=== PATIENT | male | born 1955 | race Caucasian/White ===

== ENCOUNTER → 2022-05-01 14:51 | Outpatient (BNVA) | payer OTHER, SELFPAY | PROVIDERS: PCP Family Medicine; Visit Provider Internal Medicine Endocrinology, Diabetes & Metabolism | DX: E11.65 Type 2 diabetes mellitus with hyperglycemia (principal) | CPT/HCPCS: 82947 ==

== ENCOUNTER → 2022-08-04 13:00 | Outpatient (BNVA) | payer MEDICARE, OTHER, SELFPAY | PROVIDERS: PCP Family Medicine; Visit Provider Internal Medicine Endocrinology, Diabetes & Metabolism | DX: E11.65 Type 2 diabetes mellitus with hyperglycemia (principal); Z79.4 Long term (current) use of insulin | CPT/HCPCS: 82947; 83036; 99212 ==

== ENCOUNTER → 2022-08-05 12:39 | Outpatient (BNVA) | payer MEDICARE, OTHER, SELFPAY | PROVIDERS: PCP Family Medicine; Visit Provider Physician Assistant | DX: Z13.89 Encounter for screening for other disorder (principal) ==

== ENCOUNTER → 2022-08-28 09:47 | Outpatient (BNVA) | payer MEDICARE, OTHER, SELFPAY | PROVIDERS: PCP Family Medicine; Referring Provider Family Medicine; Visit Provider Physician Assistant Surgical | DX: E66.9 Obesity, unspecified (principal); Z68.38 Body mass index [BMI] 38.0-38.9, adult | CPT/HCPCS: 99202 ==

== ENCOUNTER → 2022-11-10 16:04 | Outpatient (BNVA) | payer MEDICARE, OTHER, SELFPAY | PROVIDERS: PCP Family Medicine; Visit Provider Internal Medicine Endocrinology, Diabetes & Metabolism | DX: E11.65 Type 2 diabetes mellitus with hyperglycemia (principal) | CPT/HCPCS: 82947; 99212 ==

== ENCOUNTER → 2022-12-02 10:49 | Outpatient (BNVA) | payer MEDICARE, OTHER, SELFPAY | PROVIDERS: PCP Family Medicine; Visit Provider Registered Nurse Diabetes Educator | DX: E11.9 Type 2 diabetes mellitus without complications (principal) | CPT/HCPCS: 99211 ==

== ENCOUNTER 2023-02-17 11:32 | Outpatient (AMB) | payer MEDICARE, OTHER, SELFPAY ==
--- NOTE | 2023-02-17 11:34 | A.OFFVIS_ITS ---
Intake Vital Signs 02/17/23 11:35 Height 6 ft 3 in Weight 280 lb 10.375 oz BMI 35.1 BP 140/62 H Blood Pressure Location Rt brachial Position Sitting Pulse 80 Pulse Source Pulse Oximeter Intake Visit Reasons: f/u Type 2 DM Intake Note: Patient present today to follow up on Type 2 Diabetes Mellitus. Patient receives DME supplies through: Last Diabetic Eye exam: 11/20/22 Last Podiatry Visit: Over a year Random Glucose:213 mg/dl HgA1C: 9.3% Template Fitter Required: No Accompanied by: Self / Same As Patient Allergies metformin Adverse Reaction (Severe, Verified 02/17/23 11:39) Diarrhea atorvastatin Adverse Reaction (Unknown, Verified 02/17/23 11:39) uknown canagliflozin Adverse Reaction (Unknown, Verified 02/17/23 11:39) Unknown dapagliflozin Adverse Reaction (Unknown, Verified 02/17/23 11:39) unknown meperidine [From Demerol] Adverse Reaction (Unknown, Verified 02/17/23 11:39) Unknown pioglitazone Adverse Reaction (Unknown, Verified 02/17/23 11:39) Unknown Seasonal Allergies Adverse Reaction (Unknown, Verified 02/17/23 11:39) Unknown spironolactone Adverse Reaction (Unknown, Verified 02/17/23 11:39) Unknown topiramate Adverse Reaction (Unknown, Verified 02/17/23 11:39) Unknown Medication List - Last Reconciled 02/17/23 by Anselmo Waters MD albuterol sulfate 90 mcg/actuation 0 mcg inhalation blood sugar diagnostic (OneTouch Ultra Test strips) As directed 4 times a day blood-glucose meter (Advanced Bioimaging SystemsTouch Ultra2 Meter) As directed dulaglutide (Trulicity) 4.5 mg (0.5 mL) subcut QWEEK flash glucose scanning reader (FreeStyle Alyssa 2 [place]) As directed every 14 days flash glucose sensor (FreeStyle Alyssa 2 Sensor kit) As directed furosemide 40 mg PO DAILY insulin regular hum U-500 conc (Humulin R U-500 (Conc) Insulin Kwikpen) 200 units before breakfast, 200 units before dinner subcutaneously every evening; lancets (CultureAlleyuch Delica Lancets) As directed 4 times a day losartan 50 mg PO DAILY pregabalin 75 mg PO BID rosuvastatin 40 mg PO DAILY HPI HPI Comments History of Present Illness Details 67 YO M who is seen in consultation for T2DM at the request of PCP. Initially diagnosed with T2DM in age 32 . Saw endo in [place] Was initially started on treatment with metformin - Gi discomfort . Current regimen Trulicity 4.5 mg Qwkly Humulin U 500 220 units with breakfast and 180 units with dinner Per the CGM Alyssa / CGMS is active 92 % of time . data the patient's predicted A1C is 9.4% Avg glucose is 255 . Variability of 34.1 The patient's blood sugars were in target 22% of the time, above target 77 % of the time, and below target 1 % of the time. Pattern shows declining blood sugars overnight but increases from 03:00 to 10:00 Reports low sugars very infrequently .Had hypoglycemia several mos ago when followed diet Treats lows with juice . Not Checks sugar after to ensure it is rising. . Family history of T2DM in father had Type 2 DM . Has eyes checked yearly, last eye exam 3-4 wks ago , denies retinopathy. Has neuropathy, last foot exam 3-4 mos ago , sees podiatry. Has nephropathy, on CHARLI/ARB. . Has HLD, on statin. Denies CAD.Has PVD Saw religious educator. Is going for knee surgery in the next few weeks [facility] Medical History (Updated 08/28/22 @ 13:00 by KATLIN Crooks) Uncontrolled type 2 diabetes circulatory disorder erectile dysfunction Uncontrolled type 2 diabetes mellitus Uncontrolled type 2 diabetes mellitus Surgical History History of facial surgery Hx of cholecystectomy Hx of foot surgery Hx of knee surgery Hx of shoulder surgery Family History Father Diabetes mellitus, type II Mother Dementia Social History Household Members: Spouse Household Members Other:: Alcohol intake: current Alcohol intake frequency: holidays/special occasions on ly Patient Tobacco Use Status: Former Tobacco user Quit Date: 2020 Substance Use Type: Marijuana Physical Exam Vital Signs: Last Vital Signs Pulse 80 02/17/23 11:35 BP 140/62 H 02/17/23 11:35 BMI result Body Mass Index 35.1 Absence of Cushingoid features. Absence of acromegalic features. Neck exam reveals nl size thyroid about 15 gms. No thyroid nodules palpable. No carotid bruits present. Lungs CTA. Heart S1 S2, Reg R/R. No M/R/ G. Skin exam reveals absence of vitiligo or acanthosis nigricans. Abdominal exam reveals Soft NT/ND with NA BS. No organomegaly present. Neck Other: . Extrem Other: Visual exam of foot performed. No ulcerations or open lesions. No onchomycosis, no callouses.Pulses 2 + distally Sensation intact to monofilament exam. Vibratory sensation sensed is decreased with 128 Hz tuning fork Results Reviewed Results Reviewed: 02/17/23 11:46 Glucose, Whole Blood Routine Laboratory Last Values Glucose (Clinic) 213 mg/dL (60-115) H 02/17/23 11:46 Assessment & Plan Assessment & Plan (1) Uncontrolled type 2 diabetes mellitus: Qualifiers: Glycemic state: with hyperglycemia Qualified Code(s): E11.65 - Type 2 diabetes mellitus with hyperglycemia Plan: This is a 67-year-old white male with history of type 2 diabetes being treated with Trulicity, U-500 insulin with poor glycemic control and known microvascular and macrovascular complications namely neuropathy, microalbuminuria and peripheral vascular disease. . The plan is to consider switching the U -500 to an insulin pump large enough reservoir or use U-100 or 200 . Will have patient follow-up with religious educator . Will switch patient to alternative G LP 1/G IP agonist Mounjaro and titrate based on tolerability. For now, patient was told to increase the U-500 insulin in the a.m. to 250 units. Once he starts the Mounjaro after the surgery, he may need to decrease the U-500 insulin. New communicate any hypoglycemia after starting the Mounjaro Coding Level of Care Code Est Pt Level 4 (09807) Diagnoses Uncontrolled type 2 diabetes mellitus E11.65 Glycemic state: with hyperglycemia
[2023-02-17 11:35] VITALS: BP 140/62; PULSE 80; BMI 35.1
[2023-02-17 11:51] LABS: Glucose, Whole Blood 213 mg/dL (60-115)
== END 2023-02-17 12:24 | disposition home or self-care (01) ==
PROVIDERS: PCP Family Medicine; Referring Provider Family Medicine; Visit Provider Internal Medicine Endocrinology, Diabetes & Metabolism
DX: E11.65 Type 2 diabetes mellitus with hyperglycemia (principal); Z79.4 Long term (current) use of insulin
CPT/HCPCS: 99214

== ENCOUNTER → 2023-02-17 11:32 | Outpatient (BNVA) | payer MEDICARE, OTHER, SELFPAY | PROVIDERS: Visit Provider Internal Medicine Endocrinology, Diabetes & Metabolism | DX: E11.65 Type 2 diabetes mellitus with hyperglycemia (principal); Z79.4 Long term (current) use of insulin | CPT/HCPCS: 82947; 83036; 99212 ==

== ENCOUNTER 2023-04-21 09:19 | Outpatient (AMB) | payer MEDICARE, OTHER, SELFPAY ==
--- NOTE | 2023-04-21 10:00 | A.OFFVIS_ITS ---
Intake Intake Visit Reasons: DM Customer Manager Required: No Accompanied by: Self / Same As Patient Allergies metformin Adverse Reaction (Severe, Verified 02/17/23 11:39) Diarrhea atorvastatin Adverse Reaction (Unknown, Verified 02/17/23 11:39) uknown canagliflozin Adverse Reaction (Unknown, Verified 02/17/23 11:39) Unknown dapagliflozin Adverse Reaction (Unknown, Verified 02/17/23 11:39) unknown meperidine [From Demerol] Adverse Reaction (Unknown, Verified 02/17/23 11:39) Unknown pioglitazone Adverse Reaction (Unknown, Verified 02/17/23 11:39) Unknown Seasonal Allergies Adverse Reaction (Unknown, Verified 02/17/23 11:39) Unknown spironolactone Adverse Reaction (Unknown, Verified 02/17/23 11:39) Unknown topiramate Adverse Reaction (Unknown, Verified 02/17/23 11:39) Unknown HPI Comprehensive Diabetes Asmnt Most Recent Diabetes Results: No Data to Display [facility] Medical History (Updated 02/17/23 @ 12:59 by Anselmo Waters MD) Uncontrolled type 2 diabetes mellitus with hyperglycemia, with long-term current use of insulin Uncontrolled type 2 diabetes mellitus Uncontrolled type 2 diabetes mellitus Uncontrolled type 2 diabetes circulatory disorder erectile dysfunction Surgical History History of cosmetic plastic surgery History of facial surgery Hx of knee surgery Hx of shoulder surgery Hx of cholecystectomy Hx of foot surgery Family History Father Diabetes mellitus, type II Mother Dementia Social History Household Members: Spouse Household Members Other:: Alcohol intake: current Alcohol intake frequency: holidays/special occasions only Patient Tobacco Use Status: Former Tobacco user Quit Date: 2020 Substance Use Type: Marijuana Assessment & Plan Assessment & Plan (1) Uncontrolled type 2 diabetes mellitus with hyperglycemia, with long-term current use of insulin: Code(s): E11.65 - Type 2 diabetes mellitus with hyperglycemia; Z79.4 - group home (current) use of insulin Plan: Personal Continuous Glucose Monitor: Patients CGM information reviewed Reviewed patient's sensor data: Hypoglycemia: ? Hyperglycemia:? Time in Range:? Average glucose for the last 2 weeks? mg/dL Reviewed how to interpret trend arrows Reminded patient that to check finger sticks if symptoms do not match sensor reading. Discussed lag time between finger stick and sensor data.? Patient able to insert sensor independently at home without issue.? Plan Personal Continuous Glucose Monitor: Patients CGM information reviewed Reviewed patient's sensor data: Hypoglycemia: ? 0% Hyperglycemia:? 72% Time in Range:? 28% Average glucose for the last 2 weeks?229 mg/dL Patient reports he has been losing weight, as a result he feels he is an increase in hypoglycemic events especially before dinner. Patient is currently taking U 500 b.i.d. 120-160 units in the a.m. 50-120 units in the p.m. Reviewed with patient the importance of consistent insulin doses. Recommended to patient to discuss at next visit with Dr. Waters having a sliding scale developed. This may help get better picture of what actual glucose patterns are. The patient also at visit to discuss insulin pump use. With high doses of insulin, Omnipod and iLet would not be appropriate is a do not have the capacity to cover patient's daily insulin intake Patient is not interested in T slim with tubing. Patient reports as he continues to improve after last knee surgery he is hoping that his mobility will be come easier. And he can be more physically active in the future. Reviewed how to interpret trend arrows Reminded patient that to check finger sticks if symptoms do not match sensor reading. Discussed lag time between finger stick and sensor data.? Patient able to insert sensor independently at home without issue.? Patient declined to set up appointment for next visit * Coding Level of Care Code Est Pt Level 1 (15481) Diagnoses Uncontrolled type 2 diabetes mellitus with hyperglycemia, with long-term current use of insulin E11.65; Z79.4
== END 2023-04-21 10:15 | disposition home or self-care (01) ==
PROVIDERS: PCP Family Medicine; Visit Provider Registered Nurse Diabetes Educator
DX: E11.65 Type 2 diabetes mellitus with hyperglycemia (principal); Z79.4 Long term (current) use of insulin

== ENCOUNTER → 2023-04-21 09:19 | Outpatient (BNVA) | payer MEDICARE, OTHER, SELFPAY | PROVIDERS: PCP Family Medicine; Visit Provider Registered Nurse Diabetes Educator | DX: E11.65 Type 2 diabetes mellitus with hyperglycemia (principal); Z79.4 Long term (current) use of insulin | CPT/HCPCS: 99211 ==

== ENCOUNTER 2023-05-19 08:48 | Outpatient (REF) | payer OTHER, MEDICARE, SELFPAY ==
[2023-05-19 10:03] LABS: Creatinine Urine 146.02 mg/dL; Microalbum/Creatinine Ratio Ur 99.9 ug/mg cr (<30)
[2023-05-19 10:05] LABS: Anion Gap 13 (12-20); Blood Urea Nitrogen 16 mg/dL (9-16); Calcium 9.3 mg/dL (8.4-10.2); Carbon Dioxide 26 mmol/L (22-29); Chloride 105 mmol/L (96-108); Cholesterol 88 mg/dL (<200); Estimated Glomerular Filt Rate > 60; Glucose Random 335 mg/dL (60-115); HDL Cholesterol 33 mg/dL (>40); LDL Cholesterol Calculated 25 mg/dL (<100); Potassium 4.7 mmol/L (3.3-5.1); Sodium 139 mmol/L (135-145); Triglycerides 152 mg/dL (<150)
== END 2023-05-19 08:49 | disposition home or self-care (01) ==
LOC: HO.LAB 08:48
PROVIDERS: PCP Family Medicine; Visit Provider Internal Medicine Endocrinology, Diabetes & Metabolism
DX: E11.65 Type 2 diabetes mellitus with hyperglycemia (principal); Z79.4 Long term (current) use of insulin
CPT/HCPCS: 36415; 80048; 80061; 82043; 82570

== ENCOUNTER 2023-05-24 08:18 | Outpatient (AMB) | payer MEDICARE, OTHER, SELFPAY ==
--- NOTE | 2023-05-24 08:26 | MHC.OFFVIS ---
Intake Vital Signs 05/24/23 08:32 Height 6 ft 3 in Weight 277 lb 8.992 oz BMI 34.7 BP 114/62 Blood Pressure Location Lt brachial Position Sitting Pulse 90 Pulse Source Pulse Oximeter Intake Visit Reasons: DM Intake Note: Patient present today to follow up on Type 2 Diabetes Mellitus. Patient receives DME supplies through: [facility] Medical Last Diabetic Eye exam: 11/20/2022 Last Podiatry Visit: Does not see a Hair Baler Random Glucose: 281 mg/dl HgA1C: 9.0% Machine Operator General Required: No Accompanied by: Self / Same As Patient Allergies metformin Adverse Reaction (Severe, Verified 05/24/23 08:45) Diarrhea atorvastatin Adverse Reaction (Unknown, Verified 05/24/23 08:45) uknown canagliflozin Adverse Reaction (Unknown, Verified 05/24/23 08:45) Unknown dapagliflozin Adverse Reaction (Unknown, Verified 05/24/23 08:45) unknown meperidine [From Demerol] Adverse Reaction (Unknown, Verified 05/24/23 08:45) Unknown pioglitazone Adverse Reaction (Unknown, Verified 05/24/23 08:45) Unknown Seasonal Allergies Adverse Reaction (Unknown, Verified 05/24/23 08:45) Unknown spironolactone Adverse Reaction (Unknown, Verified 05/24/23 08:45) Unknown topiramate Adverse Reaction (Unknown, Verified 05/24/23 08:45) Unknown Medication List - Last Reconciled 05/24/23 by Anselmo Waters MD albuterol sulfate 90 mcg/actuation 0 mcg inhalation aspirin 81 mg PO DAILY blood sugar diagnostic (EquaMetricsTouch Ultra Test strips) As directed 4 times a day blood-glucose meter (Tracked.comuch Ultra2 Meter) As directed flash glucose scanning reader (aihuishouStyle Alyssa 2 [place]) As directed every 14 days flash glucose sensor (FreeStyle Alyssa 2 Sensor kit) As directed furosemide 40 mg PO DAILY insulin regular hum U-500 conc (Humulin R U-500 (Conc) Insulin Kwikpen) 200 units before breakfast, 200 units before dinner subcutaneously every evening; lancets (Mogotest Delica Lancets) As directed 4 times a day losartan 50 mg PO DAILY pregabalin 75 mg PO BID rosuvastatin 40 mg PO DAILY tirzepatide (Mounjaro) 2.5 mg (0.5 mL) subcut QWEEK 4 weeks HPI HPI Comments History of Present Illness Details 67 YO M who is seen in consultation for T2DM at the request of PCP. Initially diagnosed with T2DM in age 32 . Saw endo in [place] Was initially started on treatment with metformin - Gi discomfort . Current regimen Trulicity 4.5 mg Qwkly Humulin U 500 250 units with breakfast and 180 units with dinner Per the CGM Alyssa / CGMS is active 94 % of time . data the patient's predicted A1C is 9.7% Avg glucose is 267 . Variability of 26.8 The patient's blood sugars were in target 11% of the time, above target 88 % of the time, and below target 1 % of the time. Pattern shows declining blood sugars overnight but increases from 03:00 to 10:00 Has decreased in insulin requirement but then increased Reports low sugars very infrequently .Had hypoglycemia several mos ago when followed diet Treats lows with juice . Not Checks sugar after to ensure it is rising. . Family history of T2DM in father had Type 2 DM . Has eyes checked yearly, last eye exam , denies retinopathy. Has neuropathy, last foot exam 3-4 mos ago , sees podiatry. Has nephropathy, on CHARLI/ARB. . Has HLD, on statin. Denies CAD.Has PVD Saw simulation educator. Is going for knee surgery in the next few weeks [facility] Medical History (Updated 02/17/23 @ 12:59 by Anselmo Waters MD) Uncontrolled type 2 diabetes mellitus with hyperglycemia, with long-term current use of insulin Uncontrolled type 2 diabetes mellitus Uncontrolled type 2 diabetes mellitus Uncontrolled type 2 diabetes circulatory disorder erectile dysfunction Surgical History History of cosmetic plastic surgery History of facial surgery Hx of knee surgery Hx of shoulder surgery Hx of cholecystectomy Hx of foot surgery Family History Father Diabetes mellitus, type II Mother Dementia Household Members: Spouse Household Members Other:: Alcohol intake: current Alcohol intake frequency: holidays/special occasions only Patient Tobacco Use Status: Former Tobacco user Quit Date: 2020 Substance Use Type: Marijuana Physical Exam Vital Signs: Last Vital Signs Pulse 90 05/24/23 08:32 BP 114/62 05/24/23 08:32 BMI result Body Mass Index 34.7 Absence of Cushingoid features. Absence of acromegalic features. Neck exam reveals nl size thyroid about 15 gms. No thyroid nodules palpable. No carotid bruits present. Lungs CTA. Heart S1 S2, Reg R/R. No M/R/ G. Skin exam reveals absence of vitiligo or acanthosis nigricans. Abdominal exam reveals Soft NT/ND with NA BS. No organomegaly present. Neck Other: . Extrem Other: Visual exam of foot performed. No ulcerations or open lesions. No onchomycosis, no callouses.Pulses 2 + distally Sensation intact to monofilament exam. Vibratory sensation sensed is decreased with 128 Hz tuning fork Results Reviewed Results Reviewed: Laboratory Last Values Glucose (Clinic) 281 mg/dL (60-115) H 05/24/23 08:42 Assessment & Plan Assessment & Plan (1) Uncontrolled type 2 diabetes mellitus: Qualifiers: Glycemic state: with hyperglycemia Qualified Code(s): E11.65 - Type 2 diabetes mellitus with hyperglycemia Plan: This is a 67-year-old white male with history of type 2 diabetes being treated with Trulicity, U-500 insulin with poor glycemic control and known microvascular and macrovascular complications namely neuropathy, microalbuminuria and peripheral vascular disease. . The plan is to initiate Mounjaro 2.5 mg which patient states was helping reduce the insulin requirements. However, patient is having difficulty making the co-pay for Mounjaro. I was trying to get him assistance from physical education department chair but this may be difficult. We also want to revisit putting the U-500 insulin into a pump like tandem. I do feel more comfortable send the patient to a tertiary care center such as [facility] for pump initiation or other suggestions and [facility] Mounjaro 2.5 mg samples given to patient lot #[id number] C expiration 11/01/2024 (2) Uncontrolled type 2 diabetes mellitus with hyperglycemia, with long-term current use of insulin: Code(s): E11.65 - Type 2 diabetes mellitus with hyperglycemia; Z79.4 - truck terminal manager (current) use of insulin Orders: Orders Cortisol, Free 24Hr Urine Today E11.65 - Type 2 diabetes mellitus with hyperglycemia, Z79.4 - [facility] (current) use of insulin AMB Hemoglobin A1c Today E11.65 - Type 2 diabetes mellitus with hyperglycemia, Z79.4 - [facility] (current) use of insulin Creatinine, 24 Hr Group Today E11.65 - Type 2 diabetes mellitus with hyperglycemia, Z79.4 - truck terminal manager (current) use of insulin Referrals Endocrinology Referral E11.65 - Type 2 diabetes mellitus with hyperglycemia, Z79.4 - [facility] (current) use of insulin Coding Level of Care Code Est Pt Level 4 (10345) Diagnoses Uncontrolled type 2 diabetes mellitus with hyperglycemia E11.65 Glycemic state: with hyperglycemia Uncontrolled type 2 diabetes mellitus with hyperglycemia, with long-term current use of insulin E11.65; Z79.4
[2023-05-24 08:32] VITALS: BP 114/62; PULSE 90; BMI 34.7
[2023-05-24 08:47] LABS: Glucose, Whole Blood 281 mg/dL (60-115)
== END 2023-05-24 09:46 | disposition home or self-care (01) ==
PROVIDERS: PCP Family Medicine; Visit Provider Internal Medicine Endocrinology, Diabetes & Metabolism
DX: E11.65 Type 2 diabetes mellitus with hyperglycemia (principal); Z79.4 Long term (current) use of insulin
CPT/HCPCS: 99214

== ENCOUNTER → 2023-05-24 08:18 | Outpatient (BNVA) | payer MEDICARE, OTHER, SELFPAY | PROVIDERS: PCP Family Medicine; Visit Provider Internal Medicine Endocrinology, Diabetes & Metabolism | DX: E11.65 Type 2 diabetes mellitus with hyperglycemia (principal); E11.21 Type 2 diabetes mellitus with diabetic nephropathy; I73.9 Peripheral vascular disease, unspecified; N52.01 Erectile dysfunction due to arterial insufficiency; E78.5 Hyperlipidemia, unspecified; Z79.4 Long term (current) use of insulin; Z79.899 Other long term (current) drug therapy | CPT/HCPCS: 82947; 99212 ==

== ENCOUNTER 2023-05-25 14:42 | Outpatient (REF) | payer MEDICARE, OTHER, SELFPAY ==
[2023-05-25 15:57] LABS: Creatinine, mg/dL 97.15
[2023-05-25 17:20] LABS: Creatinine, 24Hr Urine 1.7 G/Day (1.0-2.0); Total Volume 24 Hour Urine 1750 mL
[2023-06-01 14:49] LABS: Cortisol Free, 24 Hr Urine 45.7 mcg/24 h (4.0-50.0); Creatinine, 24 Hr Urine 1.67 g/24 h (0.50-2.15); Total Volume, 24 Hr Urine 1750 mL
== END 2023-05-25 14:43 | disposition home or self-care (01) ==
LOC: HO.LNP 14:42
PROVIDERS: Visit Provider Internal Medicine Endocrinology, Diabetes & Metabolism
DX: E11.65 Type 2 diabetes mellitus with hyperglycemia (principal); Z79.4 Long term (current) use of insulin
CPT/HCPCS: 82530; 82570

== ENCOUNTER 2024-06-19 11:25 | Outpatient (AMB) | payer MEDICARE, OTHER, SELFPAY ==
--- NOTE | 2024-06-19 11:27 | MHC.OFFVIS ---
Vital Signs 06/19/24 11:32 Height 6 ft 3 in Weight 286 lb 9.615 oz BMI 35.8 BP 104/64 Blood Pressure Location Rt brachial Position Sitting Pulse 84 Pulse Source Pulse Oximeter Intake Visit Reasons: DM w/ Dr. Waters per Danielle Intake Note: Patient present today to follow up on Type 2 Diabetes Mellitus. Last Diabetic Eye exam: within the year, has annual appointments Last Podiatry Visit: Does not see a Costumer Assistant Random Glucose: 109 mg/dl HgA1C: 9.0% 06/19/24 Social Problems Specialist Required: No Accompanied by: Self / Same As Patient Allergies metformin Adverse Reaction (Severe, Verified 06/19/24 11:33) Diarrhea atorvastatin Adverse Reaction (Unknown, Verified 06/19/24 11:33) uknown canagliflozin Adverse Reaction (Unknown, Verified 06/19/24 11:33) Unknown dapagliflozin Adverse Reaction (Unknown, Verified 06/19/24 11:33) unknown meperidine [From Demerol] Adverse Reaction (Unknown, Verified 06/19/24 11:33) Unknown pioglitazone Adverse Reaction (Unknown, Verified 06/19/24 11:33) Unknown Seasonal Allergies Adverse Reaction (Unknown, Verified 06/19/24 11:33) Unknown spironolactone Adverse Reaction (Unknown, Verified 06/19/24 11:33) Unknown topiramate Adverse Reaction (Unknown, Verified 06/19/24 11:33) Unknown Medication List - Last Reconciled 06/19/24 by Anselmo Waters MD albuterol sulfate 90 mcg/actuation 0 mcg inhalation aspirin 81 mg PO DAILY blood sugar diagnostic (OneTouch Ultra Test strips) As directed 4 times a day blood-glucose meter (RedTail SolutionsTouch Ultra2 Meter) As directed dulaglutide (Trulicity) 4.5 mg (0.5 mL) subcut QWEEK flash glucose scanning reader (FreeStyle Alyssa 2 [place]) As directed every 14 days flash glucose sensor (FreeStyle Alyssa 2 Sensor kit) As directed furosemide 40 mg PO DAILY insulin regular hum U-500 conc (Humulin R U-500 (Conc) Insulin Kwikpen) 200 units (0.4 mL) subcut BID lancets (RedTail SolutionsTouch Delica Lancets) As directed 4 times a day losartan 50 mg PO DAILY pregabalin 75 mg PO BID rosuvastatin 40 mg PO DAILY HPI Comments Details: 68 YO M who is seen in consultation for T2DM at the request of PCP. Initially diagnosed with T2DM in age 32 . Saw endo in [place] Was initially started on treatment with metformin - Gi discomfort . Current regimen Trulicity 4.5 mg Qwkly Humulin U 500 200 units with breakfast and 200 units with dinner Per the CGM Dexcom Unable to download Dexcom to view data . States running in 400s Avg glucose is . Variability of The patient's blood sugars were in target % of the time, above target % of the time, and below target % of the time. Pattern shows declining blood sugars overnight but increases from 03:00 to 10:00 Has decreased in insulin requirement but then increased Reports low sugars very infrequently .Had hypoglycemia several mos ago when followed diet Treats lows with juice . Not Checks sugar after to ensure it is rising. . Family history of T2DM in father had Type 2 DM . Has eyes checked yearly, last eye exam in past yr , denies retinopathy. Has neuropathy, last foot exam > 1 yr ago , sees podiatry. Has nephropathy, on CHARLI/ARB. . Has HLD, on statin. Denies CAD.Has PVD Saw perinatal educator. I [facility], [facility] Medical History (Updated 02/17/23 @ 12:59 by Anselmo Waters MD) Uncontrolled type 2 diabetes mellitus with hyperglycemia, with long-term current use of insulin Uncontrolled type 2 diabetes mellitus Uncontrolled type 2 diabetes mellitus Uncontrolled type 2 diabetes circulatory disorder erectile dysfunction Surgical History History of cosmetic plastic surgery History of facial surgery Hx of knee surgery Hx of shoulder surgery Hx of cholecystectomy Hx of foot surgery Family History Father Diabetes mellitus, type II Mother Dementia Social History Household Members: Spouse Household Members Other:: Alcohol intake: current Alcohol intake frequency: holidays/special occasions only Patient Tobacco Use Status: Former Tobacco user Substance Use Type: Marijuana Physical Exam Vital Signs: Last Vital Signs Pulse 84 06/19/24 11:32 BP 104/64 06/19/24 11:32 BMI result Body Mass Index 35.8 Absence of Cushingoid features. Absence of acromegalic features. Neck exam reveals nl size thyroid about 15 gms. No thyroid nodules palpable. No carotid bruits present. Lungs CTA. Heart S1 S2, Reg R/R. No M/R/ G. Skin exam reveals absence of vitiligo or acanthosis nigricans. Abdominal exam reveals Soft NT/ND with NA BS. No organomegaly present. Neck Other: . Extrem Other: Visual exam of foot performed. No ulcerations or open lesions. No onchomycosis, no callouses.Pulses 2 + distally Sensation intact to monofilament exam. Vibratory sensation sensed is decreased with 128 Hz tuning fork Results AMB Hemoglobin A1c AMB Hemoglobin A1c 9.0 % Last Edit by LANDON Sagastume on 06/19/24 11:59 Assessment & Plan Assessment & Plan (1) Uncontrolled type 2 diabetes mellitus: Category: Medical Qualifiers: Glycemic state: with hyperglycemia Qualified Code(s): E11.65 - Type 2 diabetes mellitus with hyperglycemia Plan: This is a 67-year-old white male with history of type 2 diabetes being treated with Trulicity, U-500 insulin with glycemic control and known microvascular and macrovascular complications namely neuropathy, microalbuminuria and peripheral vascular disease. . The plan is to have the patient follow-up with CDE here to set Dexcom clarity so I can view his blood sugar patterns. I could not make any adjustments to his regimen today because I could not see his Dexcom. Once the clarity of set up, he will follow up with Darlene Oakes NP in 3 wks We also want to revisit putting the U-500 insulin into a pump like tandem. Other option may be to reinitiate the Mounjaro instead of the Trulicity. Will have patient follow up with Darlene Oakes NP in 4 wks . Will obtain a lipid profile and microalbumin to creatinine ratio Orders: Orders Microalbumin, Random (w Creat) Today E11.65 - Type 2 diabetes mellitus with hyperglycemia AMB Hemoglobin A1c Today E11.65 - Type 2 diabetes mellitus with hyperglycemia Lipid Panel Today E11.65 - Type 2 diabetes mellitus with hyperglycemia Coding Level of Care Code Est Pt Level 4 (89019) Diagnoses Uncontrolled type 2 diabetes mellitus with hyperglycemia E11.65 Glycemic state: with hyperglycemia
[2024-06-19 11:32] VITALS: BP 104/64; PULSE 84; BMI 35.8
[2024-06-19 11:50] LABS: Glucose, Whole Blood 109 mg/dL (60-115)
== END 2024-06-19 12:17 | disposition home or self-care (01) ==
PROVIDERS: PCP Family Medicine; Visit Provider Internal Medicine Endocrinology, Diabetes & Metabolism
DX: E11.65 Type 2 diabetes mellitus with hyperglycemia (principal)
CPT/HCPCS: 99214

== ENCOUNTER → 2024-06-19 11:25 | Outpatient (BNVA) | payer MEDICARE, OTHER, SELFPAY | PROVIDERS: PCP Family Medicine; Visit Provider Internal Medicine Endocrinology, Diabetes & Metabolism | DX: E11.65 Type 2 diabetes mellitus with hyperglycemia (principal) | CPT/HCPCS: 82947; 83036; 99212 ==

== ENCOUNTER → 2024-07-06 09:38 | Outpatient (BNVA) | payer MEDICARE, OTHER, SELFPAY | PROVIDERS: PCP Family Medicine; Visit Provider Registered Nurse Diabetes Educator | DX: E11.649 Type 2 diabetes mellitus with hypoglycemia without coma (principal); Z79.4 Long term (current) use of insulin | CPT/HCPCS: 99211 ==

== ENCOUNTER 2024-07-14 10:40 | Outpatient (AMB) | payer MEDICARE, OTHER, SELFPAY ==
--- NOTE | 2024-07-14 08:01 | A.OFFVIS_ITS ---
Vital Signs 07/14/24 10:48 Height 6 ft 3 in Weight 295 lb 6.711 oz BMI 36.9 BP 118/68 Blood Pressure Location Rt brachial Position Sitting Pulse 80 Pulse Source Pulse Oximeter Intake Visit Reasons: T2DM Intake Note: Patient present today to follow up on Type 2 Diabetes Mellitus. Last Diabetic Eye exam: within the year, has annual appointments Last Podiatry Visit: Does not see a Ceramic Saw Tender Most Recent HgA1C: 9.0% 06/19/2024 Random Glucose: 193 mg/dL, Today [place] Tour Guide Required: No Accompanied by: Self / Same As Patient Allergies metformin Adverse Reaction (Severe, Verified 07/14/24 10:46) Diarrhea atorvastatin Adverse Reaction (Unknown, Verified 07/14/24 10:46) uknown canagliflozin Adverse Reaction (Unknown, Verified 07/14/24 10:46) Unknown dapagliflozin Adverse Reaction (Unknown, Verified 07/14/24 10:46) unknown meperidine [From Demerol] Adverse Reaction (Unknown, Verified 07/14/24 10:46) Unknown pioglitazone Adverse Reaction (Unknown, Verified 07/14/24 10:46) Unknown Seasonal Allergies Adverse Reaction (Unknown, Verified 07/14/24 10:46) Unknown spironolactone Adverse Reaction (Unknown, Verified 07/14/24 10:46) Unknown topiramate Adverse Reaction (Unknown, Verified 07/14/24 10:46) Unknown Medication List - Last Reconciled 07/14/24 by Darlene Jamison NP albuterol sulfate 90 mcg/actuation 0 mcg inhalation aspirin 81 mg PO DAILY blood sugar diagnostic (OneTouch Ultra Test strips) As directed 4 times a day blood-glucose meter (OneTouch Ultra2 Meter) As directed dulaglutide (Trulicity) 4.5 mg (0.5 mL) subcut QWEEK flash glucose scanning reader (BioxodesStyle Alyssa 2 [place]) As directed every 14 days flash glucose sensor (FreeStyle Alyssa 2 Sensor kit) As directed insulin regular hum U-500 conc (Humulin R U-500 (Conc) Insulin Kwikpen) 120 unit breakfast 100 unit supper may increase by 6 units subcutaneously 2 times a day; lancets (OneTouch Delica Lancets) As directed 4 times a day losartan 50 mg PO DAILY rosuvastatin 40 mg PO DAILY HPI Comments Details: 69 YO M who is seen in f/u for T2DM with insulin resistance on high doses of insulin. He was last seen by Candice JEAN BAPTISTE 07/06/24 at which time his evening U500 was adjusted downward due to nighttime hypoglycemia. He recently saw an greenhouse manager in [place] and was told he was not eligible for an insulin pump. He last saw Dr. Waters in May. Initially diagnosed with T2DM in age 32. Was initially started on treatment with metformin - Gi discomfort (was taking only 1 tablet) He tried to fill mounjaro several years ago but the co pay was too high. He would like to try for this again. Current regimen Trulicity 4.5 mg Qwkly Humulin U 500 120 units with breakfast and 100 units with dinner At times he increases the super dosing to 120 for large meal. He did this last night and had a low in the middle of the night Dexcom average glucose: 168 14 day continuous glucose monitor report reviewed Glucose Managment indicator 7.3 % Days with CGM data [ ] % TIme in ranges: 7 % very high (above 250) 32 % high ?(181-250) 60 % in range ?(70-180] 1 % low (69-55) Less than 1 % ?very low (below 54) 52 Standard Deviation Interpretation [ several lows in the middle of the night after increasing U500 dose the night before otherwise in reasonable range] Hypoglycemia: Treats lows with juice Family history of T2DM in father had Type 2 DM . Has eyes checked yearly, last eye exam in past yr denies retinopathy. Has neuropathy, last foot exam today does not see podiatry. Has flat arches Has nephropathy, on CHARLI/ARB. Microalbumin 05/19/2023 146.0 Has HLD, on statin. Denies CAD.Has PVD [facility] Medical History (Updated 07/14/24 @ 12:41 by Darlene Jamison NP) Peripheral vascular disease Uncontrolled type 2 diabetes mellitus with hyperglycemia, with long-term current use of insulin Uncontrolled type 2 diabetes circulatory disorder erectile dysfunction Surgical History History of cosmetic plastic surgery History of facial surgery Hx of knee surgery Hx of shoulder surgery Hx of cholecystectomy Hx of foot surgery Family History Father Diabetes mellitus, type II Mother Dementia Social History Household Members: Spouse Household Members Other:: Alcohol intake: current Alcohol intake frequency: holidays/special occasions only Patient Tobacco Use Status: Former Tobacco user Substance Use Type: Marijuana Physical Exam Vital Signs: Last Vital Signs Pulse 80 07/14/24 10:48 BP 118/68 07/14/24 10:48 BMI result Body Mass Index 36.9 Const Other: Absence of Cushingoid features. Absence of acromegalic features. Neck exam reveals nl size thyroid about 15 gms. No thyroid nodules palpable. No carotid bruits present. Lungs CTA. Heart S1 S2, Reg R/R. No M/R G. Skin exam reveals absence of vitiligo or acanthosis nigricans. No edema Visual exam of foot performed. No ulcerations or open lesions. No inter digit maceration or fissuring. No onychomycosis, no callouses. Sensation intact to monofilament exam. Vibratory sensation is normal with 128 Hz tuning fork. Assessment & Plan Assessment & Plan (1) Uncontrolled type 2 diabetes mellitus: Category: Medical Plan: This is a 69-year-old white male with history of type 2 diabetes being treated with Trulicity, U-500 insulin with poor glycemic control and known microvascular and macrovascular complications namely neuropathy, microalbuminuria and peripheral vascular disease. He is insulin resistant taking high doses of u500 and has previous intolerance to metformin. [facility] patient assistance form completed for U500 Failure to obtain A1c of 7%. We will try for Rahul given that he is at the maximum Trulicity dose we will start with 0.5 mg The patient had an opportunity to ask questions regarding treatment plan. The patient expressed understanding and agreement with the above treatment plan. The patient is aware they should contact our office by phone for worsening glucose readings or for any low blood sugars which may warrant a change in d iabetes medication. Compliance is encouraged with medications and any followup testing/consults which may have been ordered. Orders: Orders US BELIA complete Today Darlene Jamison NP I73.9 - Peripheral vascular disease, unspecified Medications: New tirzepatide (Mounjaro) 5 mg (0.5 mL) subcut QWEEK 28 days 2 mL 3RF Darlene Jamison NP Changed From insulin regular hum U-500 conc (Humulin R U-500 (Conc) Insulin Kwikpen) 200 units (0.4 mL) subcut BID 90 mL 0RF To insulin regular hum U-500 conc (Humulin R U-500 (Conc) Insulin Kwikpen) 120 unit breakfast 100 unit supper may increase by 6 units subcutaneously 2 times a day; Anselmo Waters MD On Hold dulaglutide (Trulicity) Hold Comment: Doctor's Order 4.5 mg (0.5 mL) subcut QWEEK 8 mL 3RF Darlene Jamison NP Patient Instructions: The patient was counseled to achieve a target A1C of 7% (154 avg). Fasting blood sugars should be 90-130 in the morning and less than 180 two hours after meals. Reviewed the relationship between poor diabetic control and the development of complications. The patient was counseled to always carry a source of sugar and on the rule of 15's: Take 3 glucose tablets and repeat again in 15 minutes if blood sugar is not in normal range. Continue to repeat every 15 minutes until blood sugar is normal. Check your feet daily looking for any signs of infection, ulceration and seek medical attention if this occurs. Break in shoes gradually and do not wear open-toed shoes or walk barefooted. Coding Level of Care Code Est Pt Level 5 (12809) Complex EM visit Add On G2211 Diagnoses Uncontrolled type 2 diabetes mellitus Time Spent (min) 45 Comment Time spent reviewing labs/provider notes, glucose reports, face to face, chart doc
[2024-07-14 10:48] VITALS: BP 118/68; PULSE 80; BMI 36.9
[2024-07-14 10:59] LABS: Glucose, Whole Blood 193 mg/dL (60-115)
== END 2024-07-14 11:46 | disposition home or self-care (01) ==
PROVIDERS: PCP Family Medicine; Visit Provider Nurse Practitioner Adult Health
DX: E11.65 Type 2 diabetes mellitus with hyperglycemia (principal)
CPT/HCPCS: 99215; G2211

== ENCOUNTER → 2024-07-14 10:40 | Outpatient (BNVA) | payer MEDICARE, OTHER, SELFPAY | PROVIDERS: PCP Family Medicine; Visit Provider Nurse Practitioner Adult Health | DX: E11.9 Type 2 diabetes mellitus without complications (principal); E11.40 Type 2 diabetes mellitus with diabetic neuropathy, unspecified; E11.21 Type 2 diabetes mellitus with diabetic nephropathy; E11.51 Type 2 diabetes mellitus with diabetic peripheral angiopathy without gangrene; Z79.4 Long term (current) use of insulin | CPT/HCPCS: 82947; 99212 ==

== ENCOUNTER 2024-08-08 13:25 | Outpatient (REF) | payer MEDICARE, OTHER, SELFPAY | END 2024-08-08 13:26 | disposition home or self-care (01) | LOC: HO.US 13:25 | PROVIDERS: PCP Family Medicine; Visit Provider Nurse Practitioner Adult Health | DX: I73.9 Peripheral vascular disease, unspecified (principal) | CPT/HCPCS: 93923 ==

== ENCOUNTER → 2024-08-08 13:27 | Outpatient (BNV) | payer MEDICARE, OTHER, SELFPAY | PROVIDERS: PCP Family Medicine; Visit Provider Radiology Diagnostic Radiology | DX: I73.9 Peripheral vascular disease, unspecified (principal) | CPT/HCPCS: 93923 ==

== ENCOUNTER 2024-11-02 09:40 | Outpatient (REF) | payer MEDICARE, OTHER, SELFPAY ==
--- NOTE | ~2024-11-02 | XR_ITS ---
EXAMINATION: XR ABDOMEN KUB CLINICAL INDICATION: N50.811 - Right testicular pain COMPARISON: None available. TECHNIQUE: AP view of the abdomen. FINDINGS: Bowel gas pattern is normal/nonspecific. No focally dilated loop evident. Moderate fecal burden seen throughout the colon. Device overlying the liver is likely artifact, possibly a car reyes. Cholecystectomy clips are present. No organomegaly. No definite calculi identified overlying the renal shadows or expected courses of the ureters, although finding is complicated by the presence of abundant stool overlying the renal shadows. The lung bases are clear. There are degenerative changes in the spine, SI joints and bilateral hip joints. No bone lesions evident. XR/XR KUB IMPRESSION: No acute findings of the abdomen. No abnormal calcifications seen allowing for limitations as discussed. Electronically signed by: Pavan Rossi MD 11/02/2024 11:45 AM EDT
--- OUTSIDE RECORDS SUMMARY | 2024-11-02 12:54 | XMS_ITS | Encounter Summary ---
Author Organization [facility] Address [address] [place] [address] Care Team Providers Care Tobacco Scrap Sifter Name Role Phone Roby Romero MD Primary Care Pr ovider Encounter Details Date Type Department Care Team ([facility] Contact Info) Description 11/02/2024 Telephone Adult Medicine [address] [place] [phone] Elvie Phillip, DARYN Social History Tobacco Use [...] for your loved ones. For example, child specialist or elderly care for an older adult? [...] Description 11/13/2024 9:20 AM EDT Office Visit [facility] [address] [facility] 154 [place] [address] Akanksha Burton MD [address] [place] [address] 12/06/2024 9:00 AM EDT Office Visit Adult Medicine [facility] [address] [place] [phone] Bonny Morton PA [address] [place] [address] 04/30/2025 9:45 AM EST Office Visit Pulmonolgy - [place] [address] [phone] Juhi Snow NP [address] [address] 08/23/2025 11:00 AM EST Office Visit [facility] Hematology Oncology [address] [place] [phone] Marga-Dick Fang MD [address] [place] [phone] documented as of this encounter Visit Diagnoses Not on filedocumented in this encounter Additional Health Concerns Assessment Noted Time PHQ-9 Depression Total Score: 11 024 9:03 PM EST documented as of this encounter Care Teams Tobacco Scrap Sifter Relationship Specialty Start Date End Date Roby Romero MD [address] [place], [place] PCP - General Internal Medicine 02/02/22 documented as of this encounter
--- OUTSIDE RECORDS SUMMARY | 2024-11-02 12:54 | XMS_ITS | Clinical Summary ---
Author Organization [facility] [address] [place] [address] Address [address] [facility] [place] [address] Phone Care Team Providers Care Antique Furniture Restorer Name Role Phone Roby Romero MD Primary [...] by mouth daily. Active miscellaneous medical supply [facility] See Instructions, # 1 each, Refills 12, [...] injectionIndications :Type 2 diabetes mellitus with microalbuminuria ([facility] V24, [facility] V28) Inject 0.5 mL (4.5 mg total) under the skin every 7 (seven) days. 06/30/19 25 Active albuterol HFA (PROAIR HFA ; PROVENTIL HFA ; VENTOLIN HFA) 90 mcg/actuation inhalerIndications:C hronic obstructive pulmonary disease, unspecified COPD type ([facility] V24, [facility] V28) INHALE 2 INHALATIONS BY MOUTH EVERY [...] 08/30/2024 Overview (08/30/2024): nEOS Background diabetic retinopathy ([facility] V24, [facility] /[facility] V28) 06/30/2024 Assessment & Plan (06/30/2024 6:29 [...] EST): Continue follow up with orthopedics at [facility]-Dr. Quintero . He is s/p Right [...] 1; average oxygen saturation 91% (lowest 87%); [facility] Polysomnogram: Date ; Wt 270#; [...] asso ciated with type 2 diabetes mellitus ([facility] V24, [facility] V28) 02/05/2022 Assessment & Plan (06/30/2024 6:29 PM EST): Continue with hempVana cream . Orders: Hemoglobin A1c; Future Erectile dysfunction 02/05/2022 Type 2 diabetes mellitus wit h microalbuminuria ([facility] V24, [facility] V28) 11/20/2021 Assessment & Plan (09/28/2024 2:17 PM EDT): Still poorly controlled. Continue follow-up with Dr. Dukes. Continue Trulicity 4.5 mg weekly and insulin regular U-500 200 units twice daily Orders: Hemoglobin A1c; Future Assessment & Plan (06/30/2024 6:29 PM EST): Continue Humulin U500 based on glucose readings Continue Trulicty 4.5mg weekly(he has supply to last till Jul directly from [employer]) He has reestablished care with human resources talent manager-Dr. Waters but states that he will still [...] Care Team Description 11/02/2024 Telephone Adult Medicine [address] [phone] Elvie Phillip RN 11/02/2024 Nurse Triage Adult Medicine [address] [phone] Roby Romero MD Testicle Pain 10/26/2024 Telephone [facility] - [address] [place] [address] Akanksha Burton MD Appointment 10/17/2024 8:00 AM EDT Ancillary Procedure [facility] [address] [place] [phone] Pericardial effusion 09/28/2024 2:10 PM EDT - 09/28/2024 11:59 PM EDT Hospital Encounter [address] [phone] Pain of finger of right hand; Paronychia of finger of right hand Discharge Disposition: Home or Self Care 09/28/2024 1:30 PM EDT Office Visit [address] [phone] Roby Romero MD Pain of finger of right hand (Primary Dx); Paronychia of finger of right hand; Chronic coronary microvascular dysfunction; Pericardial effusion; Incomplete bladder emptying; Encounter for screening for malignant neoplasm of prostate; Type 2 diabetes mellitus with microalbuminuria (CMS/HCC V24, CMS/HCC V28) 09/20/2024 Nurse Triage Adult Medicine [address] [phone] Bonny Morton PA 09/12/2024 11:16 AM EDT - 09/12/2024 11:59 PM EDT Hospital Encounter [facility] CT Scan [address] [place] [phone] Ex-smoker; Encounter for screening for lung cancer Discharge Disposition: Home or Self Care 09/12/2024 11:00 AM EDT Office Visit Lung Screening Program - [address] [phone] Stella Laird, MIRIAM Encounter for screening for malignant neoplasm of lung in current smoker with 30 pack year history or greater (Primary Dx); Screening for lung cancer 09/12/2024 9:30 AM EDT Telemedicine Adult [address] [phone] Bonny Morton PA Paronychia of finger, right (Primary Dx); Type 2 diabetes mellitus with microalbuminuria (CMS/HCC V24, CMS/HCC V28) 09/11/2024 Telephone Adult [address] [phone] Roby Romero MD Finger Pain 08/30/2024 1:15 PM EST Office Visit Adult [address] [phone] Lupe Coleman MD Paronychia of finger of right hand (Primary Dx); Essential (primary) hypertension; Type 2 diabetes mellitus with microalbuminuria (CMS/HCC V24, CMS/HCC V28) 08/30/2024 Nurse Triage Adult [address] [phone] Roby Romero MD finger tip pain 08/23/2024 2:45 PM EST Office Visit [facility] Hematology Oncology [address] [place] [phone] Dick Lim MD Monocytosis 08/16/2024 Telephone Adult [address] [phone] Roby Romero MD Request For Order(s) (Lab work) from Last 3 Months Immunizations Name Administration Dates Next Due H1N1 Inj Preservative Free 06/18/2009 Hepatitis A Adult (Havrix; V aqta) 19yo and older 10/24/2013,07/25/2013 Hepatitis B (Gqlplrg-H-Ebhhg , Recombivax HB-Adult) 19yo and older 10/24/2013,07/25/2013 [...] Type 2 diabetes mellitus wit h microalbuminuria ([facility] V24, [facility] V28) 11/20/2021 Family History Medical History Relation Name Comments Coronary artery disease Brother Dain [place] i n his mid 50s Coronary artery disease Father [place] w ith stent and CABG in 60s [...] for your loved ones. For example, child psychologist or elderly care for an older [...] Description 11/13/2024 9:20 AM EDT Office Visit [facility] [address] [facility] [address] [place] [address] Akanksha Burton MD [address] [place] [address] 12/06/2024 9:00 AM EDT Office Visit Adult Medicine [facility] [address] [place] [address] Bonny Morton PA [address] [place] [address] 04/30/2025 9:45 AM EST Office Visit Pulmonolgy - [place] 175 [facility] [address] [place] [phone] Juhi Snow NP [address] [address] 08/23/2025 11:00 AM EST Office Visit [facility] Hematology Oncology [address] [place] [phone] Dick Lim MD [address] [place] [address] Health Maintenance Due Date Last [...] EDT Type 2 diabetes mellitus with microalbuminuria ([facility]/HCC V24, CMS/HCC V28) XR FINGERS 2+ VIEWS [...] LAB CHEMISTRY METHOD 09/28/2024 4:57 PM EDT [facility] Blood Venous blood specimen / Unknown Venipuncture / Unknown 09/28/2024 2:37 PM EDT 09/28/2024 2:37 PM EDT Narrative [facility] - 09/28/2024 4:57 PM EDT The Siemens Advia Centaur Chemiluminescent Immunoassay is used. Results obtained with different assay methods or kits cannot be used interchangeably. Results cannot be interpreted as absolute evidence of the presence or absence of malignant disease. Roby Romero MD LAB BLOOD ORDERA BLES Final Result Performing Organization Address [facility] de Phone Number [facility] [address] [place] [address], * (ABNORMAL) Hemoglobin A1c (09/28/2024 2:37 PM EDT) Hemoglobin A1C 10.0(H) <6.5 % LAB CHEMISTRY METHOD 09/28/2024 11:07 PM EDT [facility] Mean Bld Glu Estim. 240 mg/dL LAB CHEMISTRY METHOD 09/28/2024 11:07 PM EDT [facility] Blood Venous blood specimen / Unknown Venipuncture / Unknown 09/28/2024 2:37 PM EDT 09/28/2024 2:37 PM EDT Roby Romero MD LAB BLOOD ORDERA BLES Final Result Performing Organization Address [facility] de Phone Number [facility] [address] [place] [address], * XR Fingers 2+ Views Right (09/28/2024 [...] Signed Date: 09/28/2024 17:52 ET Workstation ID: [id number] Transcribed By: Self Edit Transcribed Date: 09/28/2024 [...] Signed Date: 09/28/2024 17:52 ET Workstation ID: [id number] Transcribed By: Self Edit Transcribed Date: 09/28/2024 [...] Signed Date: 09/12/2024 13:15 ET Workstation ID: [id number] Transcribed By: Self Edit Transcribed Date: 09/12/2024 13:04 ET Narrative 09/12/2024 1:15 PM EDT EXAMINATION: CT CHEST WITHOUT CONTRAST LUNG CANCER SCREENING, LOW DOSE CLINICAL INFORMATION: Lung cancer screening. ??Former smoker COMPARISON: Initial CT ?? TECHNIQUE: Multidetector CT. Examination of the chest. Examination of the chest without IV contrast. Reformatting in the coronal and sagittal planes. Device: Sensorin VCT DLP: 189 mGy-cm CTDI: 4.83 Dose [...] in the coronal and sagittal planes. Device: Sensorin VCT DLP: 189 mGy-cm CTDI: 4.83 Dose [...] Signed Date: 09/12/2024 13:15 ET Workstation ID: [id number] Transcribed By: Self Edit Transcribed Date: 09/12/2024 [...] Signed Date: 07/04/2024 14:41 ET Workstation ID: [id number] Transcribed By: Self Edit Transcribed Date: 07/04/2024 [...] Signed Date: 07/04/2024 14:41 ET Workstation ID: [id number] Transcribed By: Self Edit Transcribed Date: 07/04/2024 14:40 ET Roby Romero MD [facility] PROCEDURE S Final Result * Annual BMP Blood Test (03/29/2024) [facility] Annual BMP Blood Test abstracted Result [facility] Provider HEALTH MAINTENANCE Final Result * (ABNORMAL) Lipid panel (03/29/2024) [facility] LDL/HDL Ratio 3 0 - 4 Triglycerides 176(A) 0 - 150 mg/dL Cholesterol 107 0 - 200 mg/dL HDL 41 >=40 mg/dL LDL Cholesterol 31 0 - 100 mg/dL Blood Venous blood specimen / Unknown Result [facility] Historical Provider LAB BLOOD ORDERABLES Belinda l Result * Diabetes Eye Exam (12/03/2023) [facility] Diabetes: Annual Retina Eye Exam abstracted [facility] Provider HEALTH MAINTENANCE Final Result * Urine Albumin Creatinine Ratio (11/26/2023) [facility] Urine Albumin Creatinine Ratio abstracted Historical Provider HEALTH MAINTENANCE Final Result * Colonoscopy (11/01/2023) [facility] Colonoscopy no intepretation, abstracted Anatomical Region Laterality Modality Other [facility] Provider HEALTH MAINTENANCE Final Result * Diabetes Foot Exam (08/13/2023) [facility] Diabetes: Annual Foot Exam abstracted Historical Provider HEALTH MAINTENANCE Final Result * Hepatitis C Screening (07/21/2022) [facility] Hepatitis C Screening abstracted [facility] Provider HEALTH MAINTENANCE Final Result from Last 3 Months or Most Recently Relevant to Health Maintenance Insurance MEDICARE [facility] Care Teams Antique Furniture Restorer Relationship Specialty Start Date End Date Roby Romero MD [address] [place], [place] PCP - General Internal Medicine 02/02/22
--- OUTSIDE RECORDS SUMMARY | 2024-11-02 12:54 | XMS_ITS | Encounter Summary ---
Author Organization [facility] Address [address] [place] [address] Care Team Providers Care Creative Services Specialist Name Role Phone Debby Wiggins MD Primary Care Provider + [phone] Reason for Visit * Reason Onset Date Comments Med Refill 11/02/2024 Encounter Details Date Type Department Care Team (Late st Contact Info) Description 11/02/2024 Refill [facility] [address] [place] [phone] Racebook Writer: Orlando Ferreira Type 2 diabetes mellitus with hyperglycemia, with long-term current use of insulin (HCC) Social History Tobacco Use Types Packs/Day Years Used Date Smoking Tobacco: Never Assessed Sex and Gender Information Value Date Recorded Sex Assigned at Male 06/04/2023 5:35 PM EST Legal Sex Male 10:53 AM EDT Gender Identity Male 06/04/2023 5:35 PM EST Sexual Orientation Choose not to disclose 2022 5:35 PM EST documented as of this encounter Plan of Treatment Not on file documented as of this encounter Visit Diagnoses Diagnosis Type 2 diabetes mellitus with hyperglycemia, with long-term current use of insulin (HCC) documented in this encounter Care Teams Creative Services Specialist Relationship Specialty Start Date End Date Debby Wiggins MD [address] [place] [address] [place] [address] [place] [address] PCP - General 06/07/23 documented as of this encounter
--- OUTSIDE RECORDS SUMMARY | 2024-11-02 12:54 | XMS_ITS | Encounter Summary ---
Author Organization [facility] Address [address] [place] [address] Care Team Providers Care Shipper Receiver Name Role Phone Roby Romero MD Primary Care Pr ovider Encounter Details Date Type Department Care Team ([facility] Contact Info) Description 09/20/2024 Nurse Triage Adult Medicine [address] [phone] Bonny Morton PA [address] [place] [address] Social History Tobacco Use Types Packs/Day Years [...] for your loved ones. For example, child support case officer or elderly care for an older adult? [...] Description 11/13/2024 9:20 AM EDT Office Visit [facility] 154 300 [facility] 154 [place] [address] Akanksha Burton MD 300 [place] [address] 12/06/2024 9:00 AM EDT Office Visit Adult Medicine [facility] 444 [place] [address] Bonny Morton PA 305 [place] [address] 04/30/2025 9:45 AM EST Office Visit [facility] [address] [phone] Juhi Snow NP [address] [address] 08/23/2025 11:00 AM EST Office Visit [facility] Hematology Oncology [address] [place] [phone] Dick Lim MD [address] [place] [phone] documented as of this encounter Visit Diagnoses Not on filedocumented in this encounter Additional Health Concerns Assessment Noted Time PHQ-9 Depression Total Score: 11 024 9:03 PM EST documented as of this encounter Care Teams Shipper Receiver Relationship Specialty Start Date End Date Roby Romero MD [address] [place], [place] PCP - General Internal Medicine 02/02/22 documented as of this encounter
--- OUTSIDE RECORDS SUMMARY | 2024-11-02 12:54 | XMS_ITS | Encounter Summary ---
Author Organization [facility] Address [address] [place] [address] Care Team Providers Care Clinical Pathologist Name Role Phone Roby Romero MD Primary Care Pr ovider Reason for Visit * Reason Onset Date Comments Appointment 10/26/2024 Encounter Details Date Type Department Care Team ([facility] st Contact Info) Description 10/26/2024 Telephone [facility] - [facility] [address] [phone] Akanksha Burton MD 300 [place] [address] Appointment Social History Tobacco Use Types Packs/Day [...] loved ones. For example, child care associate or elderly care for an older adult? [...] Description 11/13/2024 9:20 AM EDT Office Visit [facility] - [facility] 154 300 [facility] 154 [place] [address] Akanksha Burton MD 300 [place] [address] 12/06/2024 9:00 AM EDT Office Visit Adult Medicine [address] [place] [address] Bonny Morton PA 305 [place] [address] 04/30/2025 9:45 AM EST Office Visit [facility] 175 [facility] 200 [place] [phone] Juhi Snow NP 175 [facility] 200 [place] [address] 08/23/2025 11:00 AM EST Office Visit [facility] Hematology Oncology [address] [place] [phone] Marga-Dick Fang MD [address] [place] [phone] documented as of this encounter Visit Diagnoses Not on filedocumented in this encounter Additional Health Concerns Assessment Noted Time PHQ-9 Depression Total Score: 11 024 9:03 PM EST documented as of this encounter Care Teams Clinical Pathologist Relationship Specialty Start Date End Date Roby Romero MD 2040 [facility] [place] PCP - General Internal Medicine 02/02/22 documented as of this encounter
--- OUTSIDE RECORDS SUMMARY | 2024-11-02 12:54 | XMS_ITS | Clinical Summary ---
Author Organization [facility] Address [address] [place] [address] Care Team Providers Care Fishing Instructor Name Role Phone Debby Wiggins MD Primary Care Provider + [phone] Medications aspirin 81 mg EC tablet Take [...] hyperglycemia, with long-term current use of insulin ([facility]) Use one sensor every 10 days 9 each 3 10/16/2024 6:43 AM EDT 4 Active Dexcom G6 Transmitter deviceIndication s:Type 2 diabetes mellitus with hyperglycemia, with long-term current use of insulin ([facility]) 1 each every 3 months. 1 each 3 4 Active blood-glucose sensor (Dexcom G7 Sensor) deviceIndication s:Type 2 diabetes mellitus with hyperglycemia, with long-term current use of insulin ([facility]) Change sensor every 10 days. 10 each 3 4 Active glimepiride (AMARYL) 2 mg tabletIndication s:Type 2 diabetes mellitus with hyperglycemia, with long-term current use of insulin ([facility]),Insulin resistance Take 1 tablet (2 mg total) by mouth every morning before breakfast. 30 tablet 3 4 Active blood-glucose sensor device Change sensor every 10 days. 1 each 3 5 Active blood-glucose transmitter (Dexcom G6 Transmitter) device Change transmitter every 3 months. 1 each 3 5 Active Encounters Date Type Department Care Team Description 11/02/2024 Refill [facility] [address] [place] [address] Sap Pi Architect: Orlando Ferreira Type 2 diabetes mellitus with hyperglycemia, with long-term current use of insulin (HCC) from Last 3 Months Social History Tobacco Use Types Packs/Day Years [...] Hemoglobin A1C 02/11/2024 08/13/2023, 06/11/2023 COVID-19 Vaccine (6 - 2023-2 5 season) 2024 04/20/2022, 10/30/2021, 04/02/2021, Additional history exists Basic Metabolic Panel 06/11/2024 06/11/2023 Urine Microalbumin 06/11/2024 06/11/2023 Alcohol/Substance Use Screening 06/28/2024 Depression Screening and Follow-Up 06/28/2024 Health Care Proxy Review 06/28/2024 Social Drivers of Health Keke ual Screening 06/28/2024 Influenza Vaccine (Season Ended) 2025 04/12/2023, 04/20/2022, 04/11/2021, Additional history exists DTaP,Tdap,and Td Vaccines (3 - Td or Tdap) 12/06/2030 12/06/2020, 10/09/2009, 07/28/1999 Procedures * Due to [place] [employer] law, this organization might not be sharing [...] to Health Maintenance Results * Due to [place] [employer] law, this organization might not be sharing negative HIV tests. * (ABNORMAL) Hemoglobin A1c, Outside Lab (08/13/2023) Hemoglobin A1C 8.9(H) % Blood Structure of peripheral vein / Unknown 08/13/2023 us Unknown Provider LAB BLOOD ORDERABLES Final R esult * (ABNORMAL) Microalbumin, Random Urine with Creatinine (06/11/2023 12:21 PM EST) Microalbumin, Urine 5.8 mg/dL 06/11/2023 1:43 PM EST [facility] Creatinine, Urine 107 22 - 328 mg/dL 06/11/2023 1:43 PM EST Peek@[facility] Microalb/Creat Ratio, Random Urine 54.2(H) <30.0 mcg/mgCr 06/11/2023 1:43 PM EST [facility] Comment: Microalbumin Reference Range: Normal ? <30 mcg/mg Creatinine Microalbuminuria ? 30-300 mcg/mg Creatinine Clinical Albuminuria >300 mcg/mg Creatinine Reference: ADA Guideline. Diabetes Care. 2004;27 (suppl 1) Urine Voided urine specimen / Unknown Non-Blood Collection / Unknown 06/11/2023 12:21 PM EST 06/11/2023 12:57 PM EST us Jennifer Menjivar MD LAB URINE ORDERABLES Final R esult [facility] [address] [place] [address], * (ABNORMAL) Comprehensive Metabolic Panel (06/11/2023 12:21 PM EST) NA 141 135 - 145 mmol/L 06/11/2023 1:43 PM EST [facility] K 4.6 3.5 - 5.3 mmol/L 06/11/2023 1:43 PM EST [facility] Cl 106 97 - 110 mmol/L 06/11/2023 1:43 PM EST [facility] CO2 27 24 - 32 mmol/L 06/11/2023 1:43 PM EST [facility] Anion Gap 8 5 - 15 06/11/2023 1:43 PM EST [facility] Glucose 186(H) 70 - 99 mg/dL 06/11/2023 1:43 PM EST [facility] Creatinine 0.95 0.60 - 1.30 mg/dL 06/11/2023 1:43 PM EST [facility] Calcium 9.3 8.7 - 10.7 mg/dL 06/11/2023 1:43 PM EST [facility] Total Protein 6.8 6.0 - 8.0 g/dL 06/11/2023 1:43 PM EST [facility] Albumin 4.2 3.5 - 4.8 g/dL 06/11/2023 1:43 PM EST [facility] Bilirubin, Total 0.9 0.3 - 1.2 mg/dL 06/11/2023 1:43 PM EST [facility] Alkaline Phosphatase 67 30 - 115 U/L 06/11/2023 1:43 PM EST [facility] AST 20 10 - 40 U/L 06/11/2023 1:43 PM EST [facility] ALT 28 10 - 40 U/L 06/11/2023 1:43 PM EST [facility] BUN 18 7 - 23 mg/dL 06/11/2023 1:43 PM EST [facility] eGFR 89 >=60 mL/min/1. 73m2 06/11/2023 1:43 PM EST [facility] Comment:The estimated [...] MD LAB BLOOD ORDERABLES Final R esult [facility] [address] [place] [address], from Last 3 Months or Most Recently Relevant to Health Maintenance Insurance MEDICARE [facility] Care Teams Fishing Instructor Relationship Specialty Start Date End Date Debby Wiggins MD [address] [place] [address] 3rd [place] [address] [place] [address] PCP - General 06/07/23
--- OUTSIDE RECORDS SUMMARY | 2024-11-02 12:54 | XMS_ITS | Referral Summary ---
Author Organization [facility] Address [address] [place] [address] Care Team Providers Care Cryptologic Technician Technical Name Role Phone Debby Wiggins MD Primary Care Provider Encounters Date Type Department Care Team Description 11/02/2024 Refill [facility] [address] [place] [address] Digital Campaign Specialist: Orlando Ferreira Type 2 diabetes mellitus with hyperglycemia, with long-term current use of insulin (HCC) from Last 3 Months Medications aspirin 81 mg EC tablet Take [...] with long-term current use of insulin (HCC) Use one sensor every 10 days 9 each 3 10/16/2024 6:43 AM EDT 4 Active Dexcom G6 Transmitter deviceIndication s:Type 2 diabetes mellitus with hyperglycemia, with long-term current use of insulin (HCC) 1 each every 3 months. 1 each 3 4 Active blood-glucose sensor (Dexcom G7 Sensor) deviceIndication s:Type 2 diabetes mellitus with hyperglycemia, with long-term current use of insulin (HCC) Change sensor every 10 days. 10 each 3 4 Active glimepiride (AMARYL) 2 mg tabletIndication s:Type 2 diabetes mellitus with hyperglycemia, with long-term current use of insulin (HCC),Insulin resistance Take 1 tablet (2 mg total) [...] Not on file Procedures * Due to [place] state law, this organization might not be sharing [...] to Health Maintenance Results * Due to [place] state law, this organization might not be sharing negative HIV tests. * (ABNORMAL) Hemoglobin A1c, Outside Lab (08/13/2023) Hemoglobin A1C 8.9(H) % Blood Structure of peripheral vein / Unknown 08/13/2023 us Unknown Provider LAB BLOOD ORDERABLES Final R esult * (ABNORMAL) Microalbumin, Random Urine with Creatinine (06/11/2023 12:21 PM EST) Microalbumin, Urine 5.8 mg/dL 06/11/2023 1:43 PM EST [facility] Creatinine, Urine 107 22 - 328 mg/dL 06/11/2023 1:43 PM EST [facility] Microalb/Creat Ratio, Random Urine 54.2(H) <30.0 mcg/mgCr 06/11/2023 1:43 PM EST [facility] Comment: Microalbumin Reference Range: Normal ? <30 mcg/mg Creatinine Microalbuminuria ? 30-300 mcg/mg Creatinine Clinical Albuminuria >300 mcg/mg Creatinine Reference: ADA Guideline. Diabetes Care. 2004;27 (suppl 1) Urine Voided urine specimen / Unknown Non-Blood Collection / Unknown 06/11/2023 12:21 PM EST 06/11/2023 12:57 PM EST us Jennifer Menjivar MD LAB URINE ORDERABLES Final R esult [facility] [address] [place] [address], [place] * (ABNORMAL) Comprehensive Metabolic Panel (06/11/2023 12:21 PM EST) NA 141 135 - 145 mmol/L 06/11/2023 1:43 PM EST [facility] K 4.6 3.5 - 5.3 mmol/L 06/11/2023 1:43 PM EST [facility] Cl 106 97 - 110 mmol/L 06/11/2023 1:43 PM EST [facility] CO2 27 24 - 32 mmol/L 06/11/2023 1:43 PM EST [facility] Anion Gap 8 5 - 15 06/11/2023 1:43 PM EST [facility] Glucose 186(H) 70 - 99 mg/dL 06/11/2023 1:43 PM EST [facility] Creatinine 0.95 0.60 - 1.30 mg/dL 06/11/2023 1:43 PM EST [facility] Calcium 9.3 8.7 - 10.7 mg/dL 06/11/2023 1:43 PM EST [facility] Total Protein 6.8 6.0 - 8.0 g/dL 06/11/2023 1:43 PM EST [facility] Albumin 4.2 3.5 - 4.8 g/dL 06/11/2023 1:43 PM EST [facility] Bilirubin, Total 0.9 0.3 - 1.2 mg/dL 06/11/2023 1:43 PM EST [facility] Alkaline Phosphatase 67 30 - 115 U/L 06/11/2023 1:43 PM EST [facility] AST 20 10 - 40 U/L 06/11/2023 1:43 PM EST [facility] ALT 28 10 - 40 U/L 06/11/2023 1:43 PM EST [facility] BUN 18 7 - 23 mg/dL 06/11/2023 1:43 PM EST [facility] eGFR 89 >=60 mL/min/1. 73m2 06/11/2023 1:[address] [facility] Comment:The estimated glomer ular [...] MD LAB BLOOD ORDERABLES Final R esult [facility] [address] [place] [address], from Last 3 Months or Most Recently Relevant to Health Maintenance Insurance MEDICARE [facility] Care Teams Cryptologic Technician Technical Relationship Specialty Start Date End Date Debby Wiggins MD [address] [place] [address] [address] floor [address] [place] [address] PCP - General 06/07/23
--- OUTSIDE RECORDS SUMMARY | 2024-11-02 12:54 | XMS_ITS | Encounter Summary ---
Author Organization [facility] Address [address] [place] [address] Care Team Providers Care Labor And Delivery Nurse Name Role Phone Roby Romero MD Primary Care Pr ovider Reason for Referral * Consultation (Urgent) - Authorized Specialty Diagnoses / Procedures Referred By Conttimothy t Referred To Contact Urology Diagnoses Pain in right testicle Roby Romero MD [address] [place] [address] Phone: tel: fax: Referral ID Status Reason Start Date Expiration Date Visits Requested Visits Authorized [id number] Authorized Specialty Services Required 11/02/2024 11/02/2025 1 1 Reason for Visit * Reason Onset Date Comments Testicle Pain 11/02/2024 Encounter Details Date Type Department Care Team (Late st Contact Info) Description 11/02/2024 Nurse Triage Adult Medicine [address] [phone] Roby Romero MD [address] [place] [address] Testicle Pain Social History Tobacco Use Types [...] your loved ones. For example, child care attendant school or elderly care for an older adult? [...] He states he is currently at the [facility] in [place]. Referral, snap shot and insurance information faxed to [facility] at . Attempted to call their [...] ER. Pt states he will go to [facility] if unable to get in to see [...] traveled recently to another state outside of [place], [place], [place], [place], [place], [place], [place]? no o If yes, did you quarantine [...] yes, gather 3rd republican insurance information [employer] Party Information: not applicable PCP: Roby Romero MD Payor: MEDICARE / Plan: MEDICARE PART A & B / Product Type: Medicare / documented in this encounter Plan of Treatment Upcoming Encounters Date Type Department Care Team (Late st Contact Info) Description 11/13/2024 9:20 AM EDT Office Visit [facility] 154 300 [facility] 154 [place] [address] Akanksha Burton MD 300 [place] [address] 12/06/2024 9:00 AM EDT Office Visit Adult Medicine [address] [place] [address] Bonny Morton PA 305 [place] [address] 04/30/2025 9:45 AM EST Office Visit [facility] 175 [facility] 200 [place] [address] Juhi Snow NP 175 [facility] 200 [place] [address] 08/23/2025 11:00 AM EST Office Visit [facility] Hematology Oncology [address] [place] [phone] Marga-Dick Fang MD [address] [place] [phone] Scheduled Referrals Name Type Priority Associated Diagnoses [...] documented as of this encounter Care Teams Labor And Delivery Nurse Relationship Specialty Start Date End Date Roby Romero, MD [address] [place] [address] PCP - General Internal Medicine 02/02/22 documented as of this encounter
--- OUTSIDE RECORDS SUMMARY | 2024-11-02 12:54 | XMS_ITS | Clinical Summary ---
Author Organization [facility] Address [address] [id number] Care Team Providers Care Emergency Operator Name Role Phone Gustavo Sena MD Primary Care Provider [phone] Allergies Active Allergy Reactions Criticality Noted Date [...] age to complete this topic Care Teams Emergency Operator Relationship Specialty Start Date End Date Gustavo Sena MD [address] [place] [address] PCP - General Internal Medicine 01/13/22
== END 2024-11-02 09:41 | disposition home or self-care (01) ==
LOC: HO.HMGCX 09:40
PROVIDERS: PCP Family Medicine; Visit Provider Nurse Practitioner Family
DX: N50.811 Right testicular pain (principal); R10.9 Unspecified abdominal pain; Z87.442 Personal history of urinary calculi; Z87.438 Personal history of other diseases of male genital organs
CPT/HCPCS: 74018

== ENCOUNTER 2024-11-02 09:40 | Outpatient (AMB) | payer MEDICARE, OTHER, SELFPAY ==
--- OUTSIDE RECORDS SUMMARY | 2024-11-02 10:24 | XMS_ITS | Referral Summary ---
Author Organization [facility] Address [address] [place] [address] Care Team Providers Care Electro Mechanic Name Role Phone Debby Wiggins MD Primary Care Provider [phone] Medications aspirin 81 mg EC tablet Take 81 mg by mouth. Active HumuLIN R U-500, Conc, Kwikpen 500 unit/mL (3 mL) insulin pen CONCENTRATED injection Inject under the skin 3 times a day before meals. 3 Active losartan (COZAAR) 50 mg tablet Take 50 mg by mouth once a day. Active pregabalin (LYRICA) 150 mg capsule Take 150 mg by mouth 2 times a day. 3 Active rosuvastatin (CRESTOR) 40 mg tablet Take 40 mg by mouth nightly. 3 Active Dexcom G6 Sensor deviceIndication s:Type 2 diabetes mellitus with hyperglycemia, with long-term current use of insulin ([facility]) Use one sensor every 10 days 9 each 3 10/16/2024 6:43 AM EDT 4 Active Dexcom G6 Transmitter deviceIndication s:Type 2 diabetes mellitus with hyperglycemia, with long-term current use of insulin ([facility]) 1 each every 3 months. 1 each 3 4 Active blood-glucose sensor (Dexcom G7 Sensor) deviceIndication s:Type 2 diabetes mellitus with hyperglycemia, with long-term current use of insulin ([facility]) Change sensor every 10 days. 10 each 3 4 Active glimepiride (AMARYL) 2 mg tabletIndication s:Type 2 diabetes mellitus with hyperglycemia, with long-term current use of insulin ([facility]),Insulin resistance Take 1 tablet (2 mg total) by mouth every morning before breakfast. 30 tablet 3 4 Active blood-glucose sensor device Change sensor every 10 days. 1 each 3 5 Active blood-glucose transmitter (Dexcom G6 Transmitter) device Change transmitter every 3 months. 1 each 3 5 Active Social History Tobacco Use Types Packs/Day Years Used Date Smoking Tobacco: Never Assessed Sex and Gender Information Value Date Recorded Sex Assigned at Male 06/04/2023 5:35 PM EST Legal Sex Male 10:53 AM EDT Gender Identity Male 06/04/2023 5:35 PM EST Sexual Orientation Choose not to disclose 2022 5:35 PM EST Last Filed Vital Signs Vital Sign Reading Time Taken Comments Blood Pressure 118/77 06/11/2023 10:21 AM EST Pulse 68 06/11/2023 10:21 AM EST Temperature - - Respiratory Rate - - Oxygen Saturation - - Inhaled Oxygen Concentration - - Weight 124.7 kg (275 lb) 06/11/2023 10:21 AM EST Height 190.5 cm (6' 3 ) 06/11/2023 10:21 AM EST Body Mass Index 34.37 06/11/2023 10:21 AM EST Plan of Treatment Not on file Procedures * Due to [place] [employer] law, this organization might not be sharing negative HIV tests. Procedure Name Priority Date/Time Associated Diagnosis Comments HEMOGLOBIN A1C, OUTSIDE LAB Routine 08/13/2023 MICROALBUMIN, RANDOM URINE WITH CREATININE Routine 06/11/2023 12:21 PM EST Type 2 diabetes mellitus with hyperglycemia, with long-term current use of insulin Diabetes mellitus type 2 in obese (CMS/HCC) ([facility]) COMPREHENSIVE METABOLIC PANEL Routine 06/11/2023 12:21 PM EST Type 2 diabetes mellitus with hyperglycemia, with long-term current use of insulin Diabetes mellitus type 2 in obese (CMS/HCC) ([facility]) from Last 3 Months or Most Recently Relevant to Health Maintenance Results * Due to [place] [employer] law, this organization might not be sharing negative HIV tests. * (ABNORMAL) Hemoglobin A1c, Outside Lab (08/13/2023) Hemoglobin A1C 8.9(H) % Blood Structure of peripheral vein / Unknown 08/13/2023 us Unknown Provider LAB BLOOD ORDERABLES Final R esult * (ABNORMAL) Microalbumin, Random Urine with Creatinine (06/11/2023 12:21 PM EST) Microalbumin, Urine 5.8 mg/dL 06/11/2023 1:43 PM EST [facility] Creatinine, Urine 107 22 - 328 mg/dL 06/11/2023 1:43 PM EST [facility] Microalb/Creat Ratio, Random Urine 54.2(H) <30.0 mcg/mgCr 06/11/2023 1:43 PM EST [facility] Comment: Microalbumin Reference Range: Normal ? <30 mcg/mg Creatinine Microalbuminuria ? 30-300 mcg/mg Creatinine Clinical Albuminuria >300 mcg/mg Creatinine Reference: ADA Guideline. Diabetes Care. 2004;27 (suppl 1) Urine Voided urine specimen / Unknown Non-Blood Collection / Unknown 06/11/2023 12:21 PM EST 06/11/2023 12:57 PM EST Jennifer Menjivar MD LAB URINE ORDERABLES Final R esult [facility] [address] [place] [address], * (ABNORMAL) Comprehensive Metabolic Panel (06/11/2023 12:21 PM EST) Pathologist [facility] NA 141 135 - 145 mmol/L 06/11/2023 1:43 PM EST [facility] K 4.6 3.5 - 5.3 mmol/L 06/11/2023 1:43 PM EST [facility] Cl 106 97 - 110 mmol/L 06/11/2023 1:43 PM EST [facility] CO2 27 24 - 32 mmol/L 06/11/2023 1:43 PM EST [facility] Anion Gap 8 5 - 15 06/11/2023 1:43 PM EST [facility] Glucose 186(H) 70 - 99 mg/dL 06/11/2023 1:43 PM EST [facility] Creatinine 0.95 0.60 - 1.30 mg/dL 06/11/2023 1:43 PM EST [facility] Calcium 9.3 8.7 - 10.7 mg/dL 06/11/2023 1:43 PM EST [facility] Total Protein 6.8 6.0 - 8.0 g/dL 06/11/2023 1:43 PM EST [facility] Albumin 4.2 3.5 - 4.8 g/dL 06/11/2023 1:43 PM EST [facility] Bilirubin, Total 0.9 0.3 - 1.2 mg/dL 06/11/2023 1:43 PM EST [facility] Alkaline Phosphatase 67 30 - 115 U/L 06/11/2023 1:43 PM EST [facility] AST 20 10 - 40 U/L 06/11/2023 1:43 PM EST [facility] ALT 28 10 - 40 U/L 06/11/2023 1:43 PM EST [facility] BUN 18 7 - 23 mg/dL 06/11/2023 1:43 PM EST [facility] eGFR 89 >=60 mL/min/1. 73m2 06/11/2023 1:43 PM EST [facility] Comment:The estimated glomer ular filtration rate (eGFR) is calculated using a new formula developed by the NKF-ASN task force to eliminate race-based correction factors. The new formula uses serum/plasma creatinine, age, and gender to determine eGFR. A value below 60mls/min might indicate kidney disease and will be flagged. For additional information, see Cortez et al, Am J Kidney Dis. 2021;79(2):268- 288, A Unifying Approach for GFR estimation: Recommendations of the NKF-ASN Task Force on Reassessing the Inclusion of Race in Diagnosing Kidney Disease . Blood Structure of peripheral vein / Unknown Venipuncture / Unknown 06/11/2023 12:21 PM EST 06/11/2023 12:57 PM EST us Jennifer Menjivar MD LAB BLOOD ORDERABLES Final R esult [facility] [address] [place] [id number], from Last 3 Months or Most Recently Relevant to Health Maintenance Insurance MEDICARE [facility] Care Teams Electro Mechanic Relationship Specialty Start Date End Date Debby Wiggins MD [address] [place] [address] [address] [place] [address] PCP - General 06/07/23
--- OUTSIDE RECORDS SUMMARY | 2024-11-02 10:24 | XMS_ITS | Encounter Summary ---
Author Organization [facility] Address [address] [place] [address] Care Team Providers Care Call Box Wirer Name Role Phone Roby Romero MD Primary Care Pr ovider Encounter Details Date Type Department Care Team ([facility] Contact Info) Description 11/02/2024 Telephone Adult Medicine [address] [place] [phone] Elvie Phillip, DARYN Social History Tobacco Use Types Packs/Day Years Used Date Smoking Tobacco: Former Cigarettes 1 49 1 974 - 2022 Cigars Smokeless Tobacco: Current Comments:Uses Cigars sometim es Alcohol Use Standard Drinks/Week Comments Yes 2 (1 standard drink = 0.6 oz pur e alcohol) Housing Instability Answer Date Recorde d Are you worried that in the next 2 months you may not have stable housing? No 06/27/2024 Food Access & Nutrition Answer Date Rec orded Do you have access to a vari ety of food including fruits and vegetables? Yes 06/27/2024 Access to Healthcare Answer Date Record ed Within the last 3 months, ho w many times did you visit the emergency department for your medical care? 0 06/27/2024 Health Literacy Answer Date Recorded How often do you need to hav e someone help you when you read instructions, pamphlets, or other written material from your doctor or pharmacy? Never 06/27/2024 Caregiver: How often do you need to have someone help you when you read instructions, pamphlets, or other written material from your doctor or pharmacy? Not on file 06/27/2024 Financial Risk Answer Date Recorded How hard is it for you to pa y for the very basics like food, housing, medical care, and air conditioning / heating? Patient declined 06/27/2024 Transportation Answer Date Recorded Has the lack of transportati on kept you from meetings, work, or from getting things needed for daily living? No Has the lack of transportati on kept you from medical appointments or from getting medications? No 06/27/2024 Social Isolation Answer Date Recorded How often do you feel lonely or isolated from th ose around you? Rarely 06/27/2024 Food Risk Answer Date Recorded Within the past 12 months we worried whether our food would run out before we got money to buy more. Never true 06/27/2024 Within the past 12 months th e food we bought just didn't last and we didn't have money to get more. Never true 06/27/2024 Dependent Care Answer Date Recorded Do you need help finding or paying for care for your loved ones. For example, childbirth educator or elderly care for an older adult? No 06/27/2024 Education Answer Date Recorded Do you think completing more education or training, like finishing a GED, going to college, or learning a trade, would be helpful for you? No 06/27/2024 Employment and Income Answer Date Recor ded During the last four weeks, have you been actively looking for work? No 06/27/2024 Living Situation Answer Date Recorded What is your living situation? 1 Sex and Gender Information Value Date Recorded Sex Assigned at Male 09/08/2024 1:33 PM EDT Legal Sex Male 9:11 PM EST Gender Identity Male 09/08/2024 1:33 PM EDT Sexual Orientation Not on file documented as of this encounter Plan of Treatment Upcoming Encounters Date Type Department Care Team (Late st Contact Info) Description 11/13/2024 9:20 AM EDT Office Visit [facility] [address] [facility] [address] [place] [address] Akanksha Burton MD [address] [place] [address] 12/06/2024 9:00 AM EDT Office Visit Adult Medicine [facility] [address] [place] [phone] Bonny Morton PA [address] [place] [address] 04/30/2025 9:45 AM EST Office Visit Pulmonolgy - [place] [address] [phone] Juhi Snow NP [address] [address] 08/23/2025 11:00 AM EST Office Visit [facility] [address] [place] [phone] Marga-Dick Fang MD [address] [place] [phone] documented as of this encounter Visit Diagnoses Not on filedocumented in this encounter Additional Health Concerns Assessment Noted Time PHQ-9 Depression Total Score: 11 024 9:03 PM EST documented as of this encounter Care Teams Call Box Wirer Relationship Specialty Start Date End Date Roby Romero MD [address] [facility], [place] PCP - General Internal Medicine 02/02/22 documented as of this encounter
--- OUTSIDE RECORDS SUMMARY | 2024-11-02 10:24 | XMS_ITS | Clinical Summary ---
Author Organization [facility] Address [address] [id number] Care Team Providers Care Airfield Engineer Officer Name Role Phone Gustavo Sena MD Primary Care Provider [phone] Allergies Active Allergy Reactions Criticality Noted Date Comments Atorvastatin 10/21/2021 Canagliflozin 10/21/2021 Dapagliflozin 10/21/2021 dizzy dizzy Duloxetine 10/21/2021 numbness Meperidine Nausea And Vomiting 07/09/2021 Pioglitazone 10/21/2021 edema edema Spironolactone 10/21/2021 breast sensuitive breast sensuitive Topiramate 10/21/2021 fuzzy fuzzy Medications Medication Sig Dispensed Refills Start Date End Date Status albuterol 108 (90 Base) MCG/ACT inhaler 2 puffs every 6 (six) hours as needed. 0 12/01/2021 Active aspirin 81 MG EC tablet Take 81 mg by mouth. 0 Active dulaglutide (Trulicity) 3 MG/0.5ML subcutaneous pen-injector Inject 3 mg under the skin. 0 01/12/2022 Active furosemide (LASIX) 40 MG tablet Take 40 mg by mouth. 0 12/11/2020 Active gabapentin (NEURONTIN) 100 MG capsule Take 2 capsules by mouth every night at bedtime. 0 01/12/2022 Active insulin aspart (NovoLOG) injection 100 units/mL Inject under the skin. 0 Active Insulin Degludec 100 UNIT/ML SOLN Inject under the skin. 0 Active Insulin Lispro, 1 Unit Dial, (HumaLOG KWIKPEN) 100 UNIT/ML SOPN Inject under the skin. 0 05/26/2021 Active losartan (COZAAR) tablet 50 mg Take 50 mg by mouth. 0 Active rosuvastatin (CRESTOR) tablet 40 mg 0 12/16/2021 Active Social History Tobacco Use Types Packs/Day Years Used Date Smoking Tobacco: Former Smokeless Tobacco: Never Alcohol Use Standard Drinks/Week Comments Yes 2 (1 standard drink = 0.6 oz pur e alcohol) Sex and Gender Information Value Date Recorded Sex Assigned at Not on file Gender Identity Not on file Sexual Orientation Not on file Job Start Date Occupation Industry Not on file Not on file Not on file Last Filed Vital Signs Vital Sign Reading Time Taken Comments Blood Pressure - - Pulse - - Temperature - - Respiratory Rate - - Oxygen Saturation - - Inhaled Oxygen Concentration - - Weight 142.9 kg (315 lb) 02/13/2022 10:16 AM EDT Height 190.5 cm (6' 3 ) 02/13/2022 10:16 AM EDT Body Mass Index 39.37 02/13/2022 10:16 AM EDT Plan of Treatment Health Maintenance Due Date Last Done Comments Hepatitis C Screening 1957 Depression Screening 1969 BMI Counseling 1975 Preventative Health Evaluation 1975 Colon Cancer Screening (Colonoscopy) 2002 Shingrix-Zoster Vaccine (1 of 2) 2007 Hepatitis B Vaccines (2 of 3 - 19+ 3-dose series) 11/21/2013 10/24/2013 DTap / Tdap / Td (1 - Tdap) 12/07/2020 12/06/2020, 0 07/28/1999 Fall Risk Assessment 2022 Pneumococcal Vaccine (2 of 2 - PCV) 2022 07/28/2007 COVID-19 Vaccine (4 - season) 2024 04/02/2021, 09/25/2020, 09/04/2020 Influenza Vaccine (#1) 2024 , 03/27/2020, 03/20/2019, Additional history exists RSV Adult > 60+ Yrs or (1 - 1-dose 75+ series) 2032 RSV Ped < 20 months Aged Out No longe r eligible based on patient's age to complete this topic Care Teams Airfield Engineer Officer Relationship Specialty Start Date End Date Gustavo Sena MD [address] [place] [address] PCP - General Internal Medicine 01/13/22
--- OUTSIDE RECORDS SUMMARY | 2024-11-02 10:24 | XMS_ITS | Clinical Summary ---
Author Organization [facility] Address [address] [place] [address] Care Team Providers Care Manager Subway Name Role Phone Debby Wiggins MD Primary Care Provider + [phone] Medications aspirin 81 mg EC tablet Take [...] hyperglycemia, with long-term current use of insulin ([facility]) Use one sensor every 10 days 9 each 3 10/16/2024 6:43 AM EDT 4 Active Dexcom G6 Transmitter deviceIndication s:Type 2 diabetes mellitus with hyperglycemia, with long-term current use of insulin ([facility]) 1 each every 3 months. 1 each 3 4 Active blood-glucose sensor (Dexcom G7 Sensor) deviceIndication s:Type 2 diabetes mellitus with hyperglycemia, with long-term current use of insulin ([facility]) Change sensor every 10 days. 10 each 3 4 Active glimepiride (AMARYL) 2 mg tabletIndication s:Type 2 diabetes mellitus with hyperglycemia, with long-term current use of insulin ([facility]),Insulin resistance Take 1 tablet (2 mg total) [...] 06/11/2023 10:21 AM EST Plan of Treatment Health Maintenance Due Date Last Done Comments Cologuard 1957 Colon Cancer Screening 1957 Colonoscopy 1957 FOBT / Fit Test 1957 Hepatitis C Screening 1957 Sigmoidoscopy 1957 Medicare AWV 1958 Ophthalmology Exam 1967 Zoster Vaccines (1 of 2) 2007 Pneumococcal Vaccine: 50+ Ye ars (2 of 2 - PCV) 07/28/2008 07/28/2007 Hepatitis B Vaccines (2 of 3 - 19+ 3-dose series) 11/21/2013 10/24/2013, 10/24/2013, 07/25/2013 RSV Vaccine (60+ years old a nd patients) (1 - Risk 60-74 years 1-dose series) 2017 Hemoglobin A1C 02/11/2024 08/13/2023, 06/11/2023 COVID-19 Vaccine ( - 2023-2 5 season) 2024 04/20/2022, 10/30/2021, 04/02/2021, Additional history exists Basic Metabolic Panel 06/11/2024 06/11/2023 Urine Microalbumin 06/11/2024 06/11/2023 Alcohol/Substance Use Screening 06/28/2024 Depression Screening and Follow-Up 06/28/2024 Health Care Proxy Review 06/28/2024 Social [facility] ual Screening 06/28/2024 Influenza Vaccine (Season Ended) 2025 04/12/2023, 04/20/2022, 04/11/2021, Additional history exists DTaP,Tdap,and Td Vaccines (3 - Td or Tdap) 12/06/2030 12/06/2020, 10/09/2009, 07/28/1999 Procedures * Due to [place] [employer] law, this organization might not be sharing negative HIV tests. Procedure Name Priority Date/Time Associated Diagnosis Comments HEMOGLOBIN A1C, OUTSIDE LAB Routine 08/13/2023 MICROALBUMIN, RANDOM URINE WITH CREATININE Routine 06/11/2023 12:21 PM EST Type 2 diabetes mellitus with hyperglycemia, with long-term current use of insulin Diabetes mellitus type 2 in obese (CMS/HCC) (HCC) COMPREHENSIVE METABOLIC PANEL Routine 06/11/2023 12:21 PM EST Type 2 diabetes mellitus with hyperglycemia, with long-term current use of insulin Diabetes mellitus type 2 in obese (CMS/HCC) (HCC) from Last 3 Months or Most Recently Relevant to Health Maintenance Results * Due to [place] [employer] law, this organization might not be sharing negative HIV tests. * (ABNORMAL) Hemoglobin A1c, Outside Lab (08/13/2023) Hemoglobin A1C 8.9(H) % Blood Structure of peripheral vein / Unknown 08/13/2023 us Unknown Provider MD LAB BLOOD ORDERABLES Final R esult * (ABNORMAL) Microalbumin, Random Urine with Creatinine (06/11/2023 12:21 PM EST) Pathologist [facility] Microalbumin, Urine 5.8 mg/dL 06/11/2023 1:43 PM EST [facility] Creatinine, Urine 107 22 - 328 mg/dL 06/11/2023 1:43 PM EST [facility] Microalb/Creat Ratio, Random Urine 54.2(H) <30.0 mcg/mgCr 06/11/2023 1:43 PM EST [facility] Comment: Microalbumin Reference Range: Normal ? <30 mcg/mg Creatinine Microalbuminuria ? 30-300 mcg/mg Creatinine Clinical Albuminuria >300 mcg/mg Creatinine Reference: ADA Guideline. Diabetes Care. 2004;27 (suppl 1) Urine Voided urine specimen / Unknown Non-Blood Collection / Unknown 06/11/2023 12:21 PM EST 06/11/2023 12:57 PM EST us Jennifer Menjivar MD LAB URINE ORDERABLES Final R esult [facility] [address] [place] [address], * (ABNORMAL) Comprehensive Metabolic Panel (06/11/2023 12:21 PM EST) Pathologist [facility] NA 141 135 - 145 mmol/L 06/11/2023 1:43 PM EST [facility] K 4.6 3.5 - 5.3 mmol/L 06/11/2023 1:43 PM EST [facility] Cl 106 97 - 110 mmol/L 06/11/2023 1:43 PM EST [facility] CO2 27 24 - 32 mmol/L 06/11/2023 1:43 PM EST [facility] Anion Gap 8 5 - 15 06/11/2023 1:43 PM EST [facility] Glucose 186(H) 70 - 99 mg/dL 06/11/2023 1:43 PM EST [facility] Creatinine 0.95 0.60 - 1.30 mg/dL 06/11/2023 1:43 PM EST [facility] Calcium 9.3 8.7 - 10.7 mg/dL 06/11/2023 1:43 PM EST [facility] Total Protein 6.8 6.0 - 8.0 g/dL 06/11/2023 1:43 PM EST [facility] Albumin 4.2 3.5 - 4.8 g/dL 06/11/2023 1:43 PM EST [facility] Bilirubin, Total 0.9 0.3 - 1.2 mg/dL 06/11/2023 1:43 PM EST [facility] Alkaline Phosphatase 67 30 - 115 U/L 06/11/2023 1:43 PM EST [facility] AST 20 10 - 40 U/L 06/11/2023 1:43 PM EST [facility] ALT 28 10 - 40 U/L 06/11/2023 1:43 PM EST [facility] BUN 18 7 - 23 mg/dL 06/11/2023 1:43 PM EST [facility] eGFR 89 >=60 mL/min/1. 73m2 06/11/2023 1:43 PM EST [facility] Comment:The estimated glomer ular filtration rate (eGFR) is calculated using a new formula developed by the NKF-ASN task force to eliminate race-based correction factors. The new formula uses serum/plasma creatinine, age, and gender to determine eGFR. A value below 60mls/min might indicate kidney disease and will be flagged. For additional information, see Dana et al, Am J Kidney Dis. 2021;79(2):268- 288, A Unifying Approach for GFR estimation: Recommendations of the NKF-ASN Task Force on Reassessing the Inclusion of Race in Diagnosing Kidney Disease . Blood Structure of peripheral vein / Unknown Venipuncture / Unknown 06/11/2023 12:21 PM EST 06/11/2023 12:57 PM EST us Jennifer Menjivar MD LAB BLOOD ORDERABLES Final R esult [facility] [address] [place] [address], from Last 3 Months or Most Recently Relevant to Health Maintenance Insurance MEDICARE [facility] Care Teams Manager Subway Relationship Specialty Start Date End Date Debby Wiggins MD [address] [place] [address] [address] [place] [address] [place] [address] PCP - General 06/07/23
--- OUTSIDE RECORDS SUMMARY | 2024-11-02 10:24 | XMS_ITS | Patient Health Record ---
Author Organization [facility] Address [address] [place] [address] Care Team Providers Care Steel Spar Operator Name Role Phone John Shaikh MD Primary Care Provider [place] Unavailable [phone] Allergies Allergen (clinical drug ingredient) Drug/Non Drug Allergy documented on EMR Reaction Allergy Type Onset Date Status meperidine Demerol vomiting Drug Allergy Active Reason For Referral No Information Medications Medication SIG (Take, Route, Frequency, Duration) Notes Start Date End Date Status Albuterol Sulfate HFA 108 (90 Base) MCG/ACT INHALE 2 PUFFS BY MOUTH EVERY 6 HOURS NEEDED Inhalation for 25 Active Aspirin 81 MG as directed Orally Active Custom Orthotics as directed Diagnosi s Pes planus B/L feet 12/09/2021 Active metFORMIN HCl ER 500 MG Oral for 90 Active Furosemide 40 MG Oral for 90 A ctive Farxiga 10 MG 1 tablet Orally Once a day Active B12 Active Trulicity 3 MG/0.5ML INJECT 1 PEN SUBCUT ANEOUSLY ONCE WEEKLY. Subcutaneous Active Tresiba FlexTouch 200 UNIT/ML INJECT 70 UNITS DIRECTED SUBCUTANEOUS TWICE DAILY Subcutaneous for 29 Active Rosuvastatin Calcium 40 MG TAKE 1 TABLET BY MOUTH EVERY DAY Oral for 90 Active Diclofenac Sodium 3 % 1 application Exte rnally Twice a day as needed for 90 days 05/11/2022 Active NovoLOG FlexPen 100 UNIT/ML INJECT 80 UNITS SUBCUTANOUSLY 3 TIMES A DAY BEFORE MEALS Subcutaneous for 90 Active Social History Tobacco Use: Social History Observation Description Date Details (start date - stop date) Former Smoker NA - NA Tobacco Use/Smoking Question Answer Notes Are you a: former smoker Additional Findings: Tobacco Non-User Current no n-smoker Alcohol Screen Question Answer Notes Did you have a drink contain ing alcohol in the past year? Yes How often did you have 6 or more drinks on one occasion in the past year? Less than monthly (1 point) Points 1 Interpretation Negative Tobacco use other than smoking: Question Answer Notes Are you an other tobacco user? No Problems Problem Type SNOMED Code ICD Code Onset Dates Problem Status W/U Status Risk Notes Problem [id number] Neuropathy (G62.9) Active confirmed Problem 23522889 Type 2 diabetes mellitus with polyneuropathy (E11.42) Active confirmed Plan Of Treatment No Information Insurance Providers Payer Name Payer Address Payer Phone Subscriber Number Group Number Insured Name Patient Relationship to Insured Coverage Start Date Coverage End Date [employer] [address] [address] [place] [id number] [phone] [id number] Nate Perkins Self - patient is the insured Medical (General) History Medical History History ICD Code Arthritis Knee Pain CAD (Cholesterol) Cataracts Diabetic Diverticulosis Epilepsy Gall bladder problems Numbness Poor circulation Mumps Bone implants/screws sprained R ankle Watson multiple shoulder dislocations Surgical History Surgery Date(Month/Year) multiple shoulder dislocation/repair 198 2 gall bladder 1991 R pinky toe surgery 1994 R foot 3 x 01/14,, Watson knee surgery 05/2918
--- OUTSIDE RECORDS SUMMARY | 2024-11-02 10:24 | XMS_ITS | Clinical Summary ---
Author Organization [facility] [address] [place] [address] [address] [facility] [place] [address] Phone Care Team Providers Care Kiln Fireman Name Role Phone Roby Romero MD Primary Care Pr ovider Allergies Active Allergy Reactions Criticality Noted Date Comments Atorvastatin 10/21/2021 Canagliflozin 10/21/2021 Dapagliflozin 10/21/2021 dizzy Duloxetine 10/21/2021 numbness Meperidine Hcl Nausea And Vomiting 07/09/2021 Metformin 10/21/2021 Other reaction(s): diarrhea Other 10/21/2021 Seasonal Allergies Pioglitazone 10/21/2021 edema Spironolactone 10/21/2021 breast sensuitive Topiramate 10/21/2021 fuzzy Medications sildenafiL (VIAGRA) 100 mg tablet Take one tablet 30 mins to an hour prior to sexual activity 03/29/20 24 025 Active budesonide (PULMICORT) 0.5 mg/2 mL nebulizer solution Take 2 mL by nebulization 2 times daily. COPD J44.9 02/28/20 24 Active formoterol (PERFOROMIST) 20 mcg/2 mL nebulizer solution Take 2 mL by nebulization 2 times daily for 90 days. COPD J44.9 02/28/20 24 Active insulin regular (HumuLIN R U-500) 500 unit/mL CONCENTRATED injection Inject 200 Units under the skin 2 (two) times a day before meals. 11/26/19 24 Active aspirin 81 mg EC tablet Take 1 Tablet by mouth daily. Active miscellaneous medical supply [facility] See Instructions, # 1 each, Refills 12, Tot. Refills 12, Maintenance, DX: PARTH Pressure of 8cm H2O, along with a large sized quattro fx full face MASK,TUBING,BELINDA TERS,HEADGEAR, CHIN STRAP AND WATER CHAMBER [phone], 06/04/17 7:50:32, Compound 06/04/20 17 Active losartan (COZAAR) 50 mg tabletIndications:Es sential (primary) hypertension Take 1 tablet (50 mg total) by mouth 1 (one) time each day. 90 each 1 06/30/19 25 025 Active rosuvastatin (CRESTOR) 40 mg tabletIndications:Mi xed hyperlipidemia Take 1 tablet (40 mg total) by mouth at bedtime. at bedtime. 90 each 06/30/19 25 025 Active dulaglutide (Trulicity) 4.5 mg/0.5 mL pen injector injectionIndications :Type 2 diabetes mellitus with microalbuminuria ([facility] V24, [facility] V28) Inject 0.5 mL (4.5 mg total) under the skin every 7 (seven) days. 06/30/19 25 Active albuterol HFA (PROAIR HFA ; PROVENTIL HFA ; VENTOLIN HFA) 90 mcg/actuation inhalerIndications:C hronic obstructive pulmonary disease, unspecified COPD type ([facility] V24, [facility] V28) INHALE 2 INHALATIONS BY MOUTH EVERY 4 HOURS IF NEEDED FOR WHEEZING 51 g 3 09/07/19 25 Active triamcinolone (KENALOG) 0.5 % ointment Apply topically 2 (two) times a day. Apply small amounts to affected area every 12 hours. Do not use for more than 14 days at a time 30 g 09/29/19 25 Active Active Problems Problem Noted Date Diagnosed Date Asthma 08/30/2024 Cataract 08/30/2024 Chondromalacia of patella 08/30/2024 Overview (08/30/2024): nEOS Background diabetic retinopathy ([facility] V24, CM /[facility] V28) 06/30/2024 Assessment & Plan (06/30/2024 6:29 PM EST): Continue DM management. F/u with endocrinology. Up to date with diabetic eye exam done 12/03/23 Mild depression 06/30/2024 Assessment & Plan (06/30/2024 6:29 PM EST): Declines treatment for now. No SI/HI Monocytosis 06/30/2024 Ventral hernia 01/08/2023 Chronic pain of both knees 10/19/2022 Assessment & Plan (06/30/2024 6:29 PM EST): Continue follow up with orthopedics at [facility]-Dr. Quintero . He is s/p Right knee, revision quadriceps repair with allograft augmentation on 09/30/2023; right knee arthroscopy, lateral meniscectomy, 05/02/2024 Stasis dermatitis of both legs 10/19/2022 Chronic obstructive pulmonar y disease (CMS/HCC V24, CMS/HCC V28) 04/20/2022 Assessment & Plan (06/30/2024 6:29 PM EST): Continue daily inhalers and pulm follow up Obstructive sleep apnea syndrome 03/24/2022 Overview (05/17/2024): SMS Treatment Polysomnogram: Date ; Wt 270#; BMI 33.75; SE 61%; SM 62%; REM 18%; CPAP @ 6: AHI 0.2, REM AHI 0, Central apneas 0; Obstructive apneas 0; Mixed apneas 0; hypopneas 1; average oxygen saturation 91% (lowest 87%); [facility] Polysomnogram: Date ; Wt 270#; BMI32.9; SE 56%; SM 60%; REM 12%; AHI 21, REM AHI 4, Apnea 45; hypopneas 42; average oxygen saturation 89% (lowest 82% - with saturations <88% for 5% or more of study);. - Obstructive Sleep Apnea - moderate overall and mild in REM; with sleep related hypoventilation by 2010 polysomnogram. Last Assessment & Plan: DME- [employer] Treatment: CPAP 6cm switched from 8-12cm. Assessment & Plan (06/30/2024 6:29 PM EST): Continue CPAP nightly Steatosis of liver 03/24/2022 Overview (05/17/2024): workup Sensorineural hearing loss (SNHL) of both ears 0 03/24/2022 Dermatochalasis of left upper eyelid 03/24/2022 Benign prostatic hyperplasia 03/24/2022 Calculus of kidney 03/24/2022 Overview (05/17/2024): neg ct urogram Chronic pain syndrome 02/05/2022 Assessment & Plan (06/30/2024 6:29 PM EST): Continue with hempVana cream . He has tried tramadol, gabapentin, pregabalin and amitriptyline, duloxetine in the past which all caused side effects Essential (primary) hypertension 02/05/2022 Overview (08/30/2024): Assessment & Plan (06/30/2024 6:29 PM EST): BP is stable. Continue losartan Orders: losartan (COZAAR) 50 mg tablet; Take 1 tablet (50 mg total) by mouth 1 (one) time each day. Obesity 02/05/2022 Diabetic polyneuropathy asso ciated with type 2 diabetes mellitus ([facility] V24, [facility] V28) 02/05/2022 Assessment & Plan (06/30/2024 6:29 PM EST): Continue with hempVana cream . Orders: Hemoglobin A1c; Future Erectile dysfunction 02/05/2022 Type 2 diabetes mellitus wit h microalbuminuria ([facility] V24, [facility] V28) 11/20/2021 Assessment & Plan (09/28/2024 2:17 PM EDT): Still poorly controlled. Continue follow-up with Dr. Dukes. Continue Trulicity 4.5 mg weekly and insulin regular U-500 200 units twice daily Orders: Hemoglobin A1c; Future Assessment & Plan (06/30/2024 6:29 PM EST): Continue Humulin U500 based on glucose readings Continue Trulicty 4.5mg weekly(he has supply to last till Jul directly from [facility]) He has reestablished care with negative spotter-Dr. Waters but states that he will still keep his upcoming appointment with Dr. Dukes in July. Trying to see what provider can best help him manage his diabetes Orders: Hemoglobin A1c; Future Mixed hyperlipidemia 07/09/2021 Overview (08/30/2024): Assessment & Plan (06/30/2024 6:29 PM EST): Last LDL was 31. Well controlled. Continue crestor Orders: rosuvastatin (CRESTOR) 40 mg tablet; Take 1 tablet (40 mg total) by mouth at bedtime. at bedtime. Bilateral leg edema 02/05/2021 Overview (08/30/2024): Rupture of quadriceps tendon 06/26/2018 Benign essential microscopic hematuria 3 Overview (08/30/2024): neg cysto,ct ,cytology Resolved Problems Problem Noted Date Diagnosed Date Resolved Date Abnormal EKG 03/30/2023 08/30/2024 Overview (05/17/2024): Last Assessment & Plan: EKG today confirms that he has a normal EKG, he is not having any anginal symptoms. Since I suspect that his stress test was a false positive in the setting of soft tissue attenuation artifact. I have low suspicion that this represents true ischemic heart disease. That said, he does have risk factors but he is already appropriately managed with risk factor modification for presumed CAD with high intensity rosuvastatin, baby aspirin. I would not do any additional work-up at this time as he had a preserved ejection fraction on echo and no symptoms. Furthermore he is euvolemic on exam. I actually recommended he consider cutting his aspirin to an 81 mg dose however, he reports that he is on it per orthopedic surgery after quadriceps tendon repair and therefore he will continue full aspirin dose. Encounters Date Type Department Care Team Description 11/02/2024 Telephone Adult Medicine [address] [phone] Elvie Phillip RN 11/02/2024 Nurse Triage Adult Medicine [address] [phone] Roby Romero MD Testicle Pain 10/26/2024 Telephone [facility] [address] [place] [address] Akanksha Burton MD Appointment 10/17/2024 8:00 AM EDT Ancillary Procedure [facility] [address] [place] [phone] Pericardial effusion 09/28/2024 2:10 PM EDT - 09/28/2024 11:59 PM EDT Hospital Encounter [address] [phone] Pain of finger of right hand; Paronychia of finger of right hand Discharge Disposition: Home or Self Care 09/28/2024 1:30 PM EDT Office Visit [address] [phone] Roby Romero MD Pain of finger of right hand (Primary Dx); Paronychia of finger of right hand; Chronic coronary microvascular dysfunction; Pericardial effusion; Incomplete bladder emptying; Encounter for screening for malignant neoplasm of prostate; Type 2 diabetes mellitus with microalbuminuria (CMS/HCC V24, CMS/HCC V28) 09/20/2024 Nurse Triage Adult Medicine [address] [phone] Bonny Morton PA 09/12/2024 11:16 AM EDT - 09/12/2024 11:59 PM EDT Hospital Encounter [facility] CT Scan [address] [place] [phone] Ex-smoker; Encounter for screening for lung cancer Discharge Disposition: Home or Self Care 09/12/2024 11:00 AM EDT Office Visit Lung Screening Program - [address] [phone] Stelal Laird, MIRIAM Encounter for screening for malignant neoplasm of lung in current smoker with 30 pack year history or greater (Primary Dx); Screening for lung cancer 09/12/2024 9:30 AM EDT Telemedicine Adult [address] [phone] Bonny Morton PA Paronychia of finger, right (Primary Dx); Type 2 diabetes mellitus with microalbuminuria (CMS/HCC V24, CMS/HCC V28) 09/11/2024 Telephone Adult [address] [phone] Roby Romero MD Finger Pain 08/30/2024 1:15 PM EST Office Visit Adult [address] [phone] Lupe Coleman MD Paronychia of finger of right hand (Primary Dx); Essential (primary) hypertension; Type 2 diabetes mellitus with microalbuminuria (CMS/HCC V24, CMS/HCC V28) 08/30/2024 Nurse Triage Adult [address] [phone] Roby Romero MD finger tip pain 08/23/2024 2:45 PM EST Office Visit [facility] [address] [place] [phone] Dick Lim MD Monocytosis 08/16/2024 Telephone Adult [address] [phone] Roby Romero MD Request For Order(s) (Lab work) from Last 3 Months Immunizations Name Administration Dates Next Due H1N1 Inj Preservative Free 06/18/2009 Hepatitis A Adult (Havrix; V aqta) 19yo and older 10/24/2013,07/25/2013 Hepatitis B (Bbgeesn-V-Gpyec , Recombivax HB-Adult) 19yo and older 10/24/2013,07/25/2013 Hepatitis B Pediatric (Enger ix B; Recombivax HB) to less than 20 yo 10/24/2013 Influenza trivalent, 0.5mL ( Fluad) 65yo and older 04/12/2023 Influenza trivalent, 0.5mL, preservative free (Fluarix; FluLaval; Fluzone) ages 6mo and older (Afluria) 3 years and older 04/07/2016,04/15/2010,06/18/2009,05/15,05/27/2007 Influenza trivalent, with pr eservative (Fluzone; Afluria) 6mo and older 04/11/2021,03/27/2020,03/20/2019,04/21,05/17/2017,04/07/2016,05/16/2015 ,05/01/2014,05/25/2013,04/03/2011 Influenza, Unspecified 04/15/2010,05/15/2008, Pfizer (ages 12 & older) Biv alent, COVID-19 04/20/2022 Pneumococcal conjugate 20 va lent (Prevnar 20, PCV 20) 2mo and older 10/19/2022 Pneumococcal polysaccharide 23 valent (Pneumovax 23) 2yo and older 07/28/2007 Td Tetanus diptheria (Tdvax) 7yo and older 12/06/2020,07/28/1999 Tdap Tetanus diptheria acell ular pertussis (Boostrix; Adacel) 7yo and older 10/09/2009 Surgical History Surgery Date Site/Laterality Comments CHOLECYSTECTOMY SHOULDER SURGERY FOOT SURGERY Right x3 1999, 2000, 2001 KNEE SURGERY 06/26/2018 Bilateral Quadriceps Tendon Repair, Dr. Torres Medical History Medical History Date Comments Mixed hyperlipidemia Vitamin D deficiency Essential (primary) hypertension Chronic pain syndrome Obstructive sleep apnea : On CPA P Obesity Seizures (CMS/HCC V24, CMS/HCC V28) Type 2 diabetes mellitus wit h microalbuminuria ([facility] V24, [facility] V28) 11/20/2021 Family History Medical History Relation Name Comments Coronary artery disease Brother Dain AL i n his mid 50s Coronary artery disease Father AL w ith stent and CABG in 60s Dementia Mother Other: strep complications Son Relation Name Status Comments Brother Dain Alive Father Mother Son Social History Tobacco Use Types Packs/Day Years Used Date Smoking Tobacco: Former Cigarettes 1 49 1 974 - 2022 Cigars Smokeless Tobacco: Current Tobacco Cessation:Ready to Q uit: Not Asked; Counseling Given: Not Answered Comments:Uses Cigars sometimes Alcohol Use Standard Drinks/Week Comments Yes 2 [...] Record ed Within the last 3 months, gay lr many times did you visit the emergency [...] care for your loved ones. For example, child care associate teacher or elderly care for an older adult? [...] PM EDT Sexual Orientation Not on file Obstetrics History Last Filed Vital Signs Vital Sign Reading Time Taken Comments Blood Pressure 138/80 10/17/2024 8:44 AM EDT Pulse 76 09/28/2024 1:42 PM EDT Temperature 37.6 ??C (99.7 ??F) 09/28/2024 1:42 PM ED T Respiratory Rate 16 09/28/2024 1:42 PM EDT Oxygen Saturation 95% 08/30/2024 1:19 PM EST Inhaled Oxygen Concentration - - Weight 130 kg (286 lb) 10/17/2024 8:44 AM EDT Height 190.5 cm (6' 3 ) 10/17/2024 8:44 AM EDT Body Mass Index 35.75 10/17/2024 8:44 AM EDT Plan of Treatment Upcoming Encounters Date Type Department Care Team (Late st Contact Info) Description 11/13/2024 9:20 AM EDT Office Visit [facility] [address] [facility] [address] [place] [phone] Akanksha Burton MD [address] [place] [address] 12/06/2024 9:00 AM EDT Office Visit Adult Medicine [facility] [address] [place] [phone] Bonny Morton PA [address] [place] [address] 04/30/2025 9:45 AM EST Office Visit Pulmonolgy - [place] [address] [facility] [address] [place] [phone] Juhi Snow NP [address] [address] 08/23/2025 11:00 AM EST Office Visit [facility] [address] [place] [phone] Dick Lim MD [address] [place] [phone] Health Maintenance Due Date Last Done Comments Zoster Vaccines (1 of 2) 2007 RSV Immunization Adult Patients (1 - Risk 60-74 years 1-dose series) 2017 Diabetes: Annual Foot Exam 08/13/2024 08/13/2023 COVID-19 Vaccine ( season) 2024 05/06/2024, 04/20/2022, 10/30/2021, Additional history exists Diabetes: Annual Urine Albumin-Creatinine Ratio (uACR) 11/25/2024 11/26/2023, 06/11/2023, 06/11/2023 Diabetes: Annual Retina Eye Exam 12/02/2024 12/03/2023 Diabetes: Annual GFR (Glomerular Filtration Rate) 03/29/2025 03/29/2024, 03/29/2024, 11/26/2023, Additional history exists Hypertension/CHF/CAD Annual BMP Blood Test 03/29/2025 03/29/2024, 03/29/2024, 11/26/2023, Additional history exists Diabetes: Blood Sugar Control Test (HGBA1C) 03/30/2025 09/28/2024, 06/30/2024, 03/29/2024, Additional history exists Social Influencers of Health Screening 06/27/2025 06/27/2024 Medicare Annual Wellness Visit 06/30/2025 06/30/2024 Depression Screening 09/11/2025 09/11/2024 Falls Risk Assessment 09/12/2025 09/12/2024, 025 Lung Cancer Screening (Low Dose CT) 09/12/2025 09/12/2024 Cholesterol Screening (Lipid Panel) 03/29/2029 03/29/2024, 03/29/2024 DTaP,Tdap,and Td Vaccines (4 - Td or Tdap) 12/06/2030 12/06/2020, 10/09/2009, 07/28/1999 Colorectal Cancer Screening: Colonoscopy 10/31/2033 11/01/2023 Hepatitis A Vaccines Discontinued 10/24/2013, 07/25/19 Hepatitis B Vaccines Discontinued 10/24/2013, 10/24/2013, 07/25/2013 Hepatitis C Screening Completed 07/21/2022 Pneumococcal Vaccine: 50+ Years Completed 10/19/2022, 07/28/2007 Influenza Vaccine Completed 05/06/2024, , 04/20/2022, Additional history exists Abdominal Aortic Aneurysm (AAA) Screen Completed 07/04/2024 HIB Vaccines Aged Out No longer eligi ble based on patient's age to complete this topic HPV Vaccines Aged Out No longer eligi ble based on patient's age to complete this topic IPV Vaccines Aged Out No longer eligi ble based on patient's age to complete this topic MMR Vaccines Aged Out No longer eligi ble based on patient's age to complete this topic Meningococcal ACWY Vaccine Aged Out N o longer eligible based on patient's age to complete this topic Meningococcal B Vaccine Aged Out No l onger eligible based on patient's age to complete this topic RSV Immunization Patients Under 20 months Aged Out No longer eligible based on patient's age to complete this topic Varicella Vaccines Aged Out No longer eligible based on patient's age to complete this topic Procedures Procedure Name Priority Date/Time Associated Diagnosis Comments PROSTATE SPECIFIC ANTIGEN SCREEN Routine 09/28/2024 2:37 PM EDT Incomplete bladder emptying Encounter for screening for malignant neoplasm of prostate HEMOGLOBIN A1C Routine 09/28/2024 2:37 PM EDT Type 2 diabetes mellitus with microalbuminuria ([facility]/HCC V24, CMS/HCC V28) XR FINGERS 2+ VIEWS RIGHT Routine 09/28/2024 2:21 PM EDT Pain of finger of right hand Paronychia of finger of right hand CT LUNG SCREENING Routine 09/12/2024 11: 36 AM EDT Ex-smoker Encounter for screening for lung cancer US ABDOMEN AORTIC ANEURYSM SCREENING Routine 07/04/2024 8:59 AM EST Encounter for abdominal aortic aneurysm (AAA) screening ANNUAL BMP BLOOD TEST Routine 03/29/2024 LIPID PANEL Routine 03/29/2024 DIABETES EYE EXAM Routine 12/03/2023 URINE ALBUMIN CREATININE RATIO Routine 11/26/2023 COLONOSCOPY Routine 11/01/2023 DIABETES FOOT EXAM Routine 08/13/2023 HEPATITIS C SCREENING Routine 07/21/2022 from Last 3 Months or Most Recently Relevant to Health Maintenance Results * Prostate specific antigen screen (09/28/2024 2:37 PM EDT) PSA 0.76 0.00 - 4.00 ng/mL LAB CHEMISTRY METHOD 09/28/2024 4:57 PM EDT [facility] Blood Venous blood specimen / Unknown Venipuncture / Unknown 09/28/2024 2:37 PM EDT 09/28/2024 2:37 PM EDT Narrative [facility] - 09/28/2024 4:57 PM EDT The Siemens Advia Centaur Chemiluminescent Immunoassay is used. Results obtained with different assay methods or kits cannot be used interchangeably. Results cannot be interpreted as absolute evidence of the presence or absence of malignant disease. Roby Romero MD LAB BLOOD ORDERA BLES Final Result Performing Organization Address [facility] de Phone Number [facility] [address] [place] [address], * (ABNORMAL) Hemoglobin A1c (09/28/2024 2:37 PM EDT) Hemoglobin A1C 10.0(H) <6.5 % LAB CHEMISTRY METHOD 09/28/2024 11:07 PM EDT [facility] Mean Bld Glu Estim. 240 mg/dL LAB CHEMISTRY METHOD 09/28/2024 11:07 PM EDT [facility] Blood Venous blood specimen / Unknown Venipuncture / Unknown 09/28/2024 2:37 PM EDT 09/28/2024 2:37 PM EDT Roby Romero MD LAB BLOOD ORDERA BLES Final Result Performing Organization Address [facility] de Phone Number [facility] [address] [place] [address], * XR Fingers 2+ Views Right (09/28/2024 2:21 PM EDT) Anatomical Region Laterality Modality Upper Extremities, Fingers Right [employer] graphic Imaging 09/28/2024 5:44 PM EDT Impressions 09/28/2024 5:52 PM EDT No acute fracture or dislocation. ??The right middle finger is within normal limits -------- FINAL REPORT -------- Dictated By: Ave Kline Dictated Date: 09/28/2024 17:44 ET Assigned Physician: Ave Kline Reviewed and Electronically Signed By: Ave Kline Signed Date: 09/28/2024 17:52 ET Workstation ID: [id number] Transcribed By: Self Edit Transcribed Date: 09/28/2024 17:44 ET Narrative 09/28/2024 5:52 PM EDT EXAMINATION: XR FINGERS 2+ VIEWS RIGHT 09/28/2024 2:11 PM Patient : 1955 CLINICAL DATA/INDICATIONS: right middle finger paronychia COMPARISON: None FINDINGS: 3 views of the right 3rd digit demonstrates no acute fracture or dislocation. ??The articular surfaces are grossly intact. ??No aggressive osseous destruction. ??Mild soft tissue swelling. Procedure Note Ave Kline MD - 09/28/2024 EXAMINATION: XR FINGERS 2+ VIEWS RIGHT 09/28/2024 2:11 PM Patient :1955 CLINICAL DATA/INDICATIONS: right middle finger paronychia COMPARISON: None FINDINGS: 3 views of the right 3rd digit demonstrates no acute fracture ordislocation. The articular surfaces are grossly intact. No aggressiveosseous destruction. Mild soft tissue swelling. IMPRESSION: No acute fracture or dislocation. The right middle finger is withinnormal limits -------- FINAL REPORT -------- Dictated By: Ave Kline Dictated Date: 09/28/2024 17:44 ET Assigned Physician: Ave Kline Reviewed and Electronically Signed By: Ave Kline Signed Date: 09/28/2024 17:52 ET Workstation ID: [id number] Transcribed By: Self Edit Transcribed Date: 09/28/2024 17:44 ET Roby Romero MD IMG XR PROCEDURE S Final Result * CT Lung Screening (09/12/2024 11:36 AM EDT) Anatomical Region Laterality Modality Chest Computed Tomogra phy 09/12/2024 1:04 PM EDT Impressions 09/12/2024 1:15 PM EDT No suspicious mass or nodule. Underlying emphysema. Small opacities are likely postinflammatory. ?? LUNG RADS: Lung-RADS 2: BENIGN S Modifier (Significant or Potentially Significant Findings): None present Severe coronary calcifications RECOMMENDATIONS: 12 month screening low dose CT -------- FINAL REPORT -------- Dictated By: Chauncey Celis Dictated Date: 09/12/2024 13:04 ET Assigned Physician: Chauncey Celis Reviewed and Electronically Signed By: Chauncey Celis Signed Date: 09/12/2024 13:15 ET Workstation ID: [id number] Transcribed By: Self Edit Transcribed Date: 09/12/2024 13:04 ET Narrative 09/12/2024 1:15 PM EDT EXAMINATION: CT CHEST WITHOUT CONTRAST LUNG CANCER SCREENING, LOW DOSE CLINICAL INFORMATION: Lung cancer screening. ??Former smoker COMPARISON: Initial CT ?? TECHNIQUE: Multidetector CT. Examination of the chest. Examination of the chest without IV contrast. Reformatting in the coronal and sagittal planes. Device: Vivocha VCT DLP: 189 mGy-cm CTDI: 4.83 Dose optimization was performed including the use of low-dose iterative reconstruction technique with automatic exposure control based on patient size. Type of contrast: None Volume of IV contrast: None Volume of contrast discarded: 0 mL FINDINGS: LUNG: No abnormality of the trachea or mainstem bronchi. No focal pneumonia. ?? LUNG NODULES: There are no suspicious nodules or masses. There were a few micronodules. There is a minimal opacity associated with the medial third of the upper right major fissure. There is a pleural associated reticular opacity in the anterolateral inferior lingula (3/204). This has a mean diameter of less than 0.5 cm. OTHER PULMONARY: ??There is mild centrilobular emphysema. There are a few linear or bandlike opacities in the dependent lower lung zones. MEDIASTINUM: ??There are no enlarged mediastinal or hilar lymph nodes. No suspicious abnormalities of the esophagus CARDIAC: The heart is not enlarged. There is a small amount of pericardial fluid or thickening anteriorly without mass effect. ?? There are marked coronary calcifications. VASCULAR: There is no thoracic aortic aneurysm. The main pulmonary artery is normal caliber ?? PLEURA: There is no pleural fluid or pneumothorax ?? AXILLA/CHEST WALL: There are no enlarged axillary lymph nodes. No chest wall mass demonstrated ?? VISUALIZED UPPER ABDOMEN: ??No suspicious abnormality on limited assessment of the visualized upper abdomen1. Nonspecific subcutaneous stranding in the upper abdomen on each side. MUSCULOSKELETAL: No suspicious focal bony lesion demonstrated. ??Extensive degenerative changes in the spine and both shoulders. Procedure Note Chauncey Celis MD - 09/12/2024 EXAMINATION: CT CHEST WITHOUT CONTRAST LUNG CANCER SCREENING, LOW DOSE CLINICAL INFORMATION: Lung cancer screening. Former smoker COMPARISON: Initial CT TECHNIQUE: Multidetector CT. Examination of the chest. Examination of the chest without IV contrast. Reformatting in the coronal and sagittal planes. Device: Vivocha VCT DLP: 189 mGy-cm CTDI: 4.83 Dose optimization was performed including the use of low-dose iterativereconstruction technique with automatic exposure control based on patientsize. Type of contrast: None Volume of IV contrast: None Volume of contrast discarded: 0 mL FINDINGS: LUNG: No abnormality of the trachea or mainstem bronchi. No focalpneumonia. LUNG NODULES: There are no suspicious nodules or masses. There were a few micronodules. There is a minimal opacity associated withthe medial third of the upper right major fissure. There is a pleural associated reticular opacity in the anterolateralinferior lingula (3/204). This has a mean diameter of less than 0.5 cm. OTHER PULMONARY: There is mild centrilobular emphysema. There are a fewlinear or bandlike opacities in the dependent lower lung zones. MEDIASTINUM: There are no enlarged mediastinal or hilar lymph nodes. Nosuspicious abnormalities of the esophagus CARDIAC: The heart is not enlarged. There is a small amount of pericardialfluid or thickening anteriorly without mass effect. There are marked coronary calcifications. VASCULAR: There is no thoracic aortic aneurysm. The main pulmonary arteryis normal caliber PLEURA: There is no pleural fluid or pneumothorax AXILLA/CHEST WALL: There are no enlarged axillary lymph nodes. No chestwall mass demonstrated VISUALIZED UPPER ABDOMEN: No suspicious abnormality on limited assessmentof the visualized upper abdomen1. Nonspecific subcutaneous stranding inthe upper abdomen on each side. MUSCULOSKELETAL: No suspicious focal bony lesion demonstrated. Extensivedegenerative changes in the spine and both shoulders. IMPRESSION: No suspicious mass or nodule. Underlying emphysema. Small opacities are likely postinflammatory. LUNG RADS: Lung-RADS 2: BENIGN S Modifier (Significant or Potentially Significant Findings): Nonepresent Severe coronary calcifications RECOMMENDATIONS: 12 month screening low dose CT -------- FINAL REPORT -------- Dictated By: Chauncey Celis Dictated Date: 09/12/2024 13:04 ET Assigned Physician: Chauncey Celis Reviewed and Electronically Signed By: Chauncey Celis Signed Date: 09/12/2024 13:15 ET Workstation ID: [id number] Transcribed By: Self Edit Transcribed Date: 09/12/2024 13:04 ET us Adalberto Bliss MD IMG CT PROCEDURES Final Result * US Abdomen Aortic Aneurysm Screening (07/04/2024 8:59 AM EST) Anatomical Region Laterality Modality Abdominal aorta Ultrasound 07/04/2024 2:40 PM EST Impressions 07/04/2024 2:41 PM EST No evidence of abdominal aortic aneurysm -------- FINAL REPORT -------- Dictated By: Ave Kline Dictated Date: 07/04/2024 14:40 ET Assigned Physician: Ave Kline Reviewed and Electronically Signed By: Ave Kline Signed Date: 07/04/2024 14:41 ET Workstation ID: [id number] Transcribed By: Self Edit Transcribed Date: 07/04/2024 14:40 ET Narrative 07/04/2024 2:41 PM EST EXAM: Ultrasound evaluation of the abdominal aorta. HISTORY: AAA, surveillance AAA screening COMPARISON:Ultrasound right upper quadrant from 02/23/2022 Technique: Grayscale and Doppler images of the abdominal aorta and proximal common iliac arteries were obtained. FINDINGS: Proximal abdominal aorta measures 1.9 x 2.0 cm in caliber Mid abdominal aorta measures 2.0 x 2.1 cm in caliber Distal abdominal aorta measures 1.6 x 1.6 cm in caliber Left proximal common iliac artery measures 0.9 cm in caliber Right proximal common iliac artery measures 0.9 cm in caliber Procedure Note Ave Kline MD - 07/04/2024 EXAM: Ultrasound evaluation of the abdominal aorta. HISTORY: AAA, surveillance AAA screening COMPARISON:Ultrasound right upper quadrant from 02/23/2022 Technique: Grayscale and Doppler images of the abdominal aorta andproximal common iliac arteries were obtained. FINDINGS: Proximal abdominal aorta measures 1.9 x 2.0 cm in caliber Mid abdominal aorta measures 2.0 x 2.1 cm in caliber Distal abdominal aorta measures 1.6 x 1.6 cm in caliber Left proximal common iliac artery measures 0.9 cm in caliber Right proximal common iliac artery measures 0.9 cm in caliber IMPRESSION: No evidence of abdominal aortic aneurysm -------- FINAL REPORT -------- Dictated By: Ave Kline Dictated Date: 07/04/2024 14:40 ET Assigned Physician: Ave Kline Reviewed and Electronically Signed By: Ave Kline Signed Date: 07/04/2024 14:41 ET Workstation ID: [id number] Transcribed By: Self Edit Transcribed Date: 07/04/2024 14:40 ET [address] Rom[address] [facility] PROCEDURE S Final Result * Annual BMP Blood Test (03/29/2024) [facility] Annual BMP Blood Test abstracted Result [facility] Provider HEALTH MAINTENANCE Final Result * (ABNORMAL) Lipid panel (03/29/2024) [facility] LDL/HDL Ratio 3 0 - 4 Triglycerides 176(A) 0 - 150 mg/dL Cholesterol 107 0 - 200 mg/dL HDL 41 >=40 mg/dL LDL Cholesterol 31 0 - 100 mg/dL Blood Venous blood specimen / Unknown Result [facility] Historical Provider LAB BLOOD ORDERABLES Belinda l Result * Diabetes Eye Exam (12/03/2023) [facility] Diabetes: Annual Retina Eye Exam abstracted [facility] Provider HEALTH MAINTENANCE Final Result * Urine Albumin Creatinine Ratio (11/26/2023) [facility] Urine Albumin Creatinine Ratio abstracted Historical Provider HEALTH MAINTENANCE Final Result * Colonoscopy (11/01/2023) [facility] Colonoscopy no intepretation, abstracted Anatomical Region Laterality Modality Other [facility] Provider HEALTH MAINTENANCE Final Result * Diabetes Foot Exam (08/13/2023) [facility] Diabetes: Annual Foot Exam abstracted Historical Provider HEALTH MAINTENANCE Final Result * Hepatitis C Screening (07/21/2022) [facility] Hepatitis C Screening abstracted [facility] Provider HEALTH MAINTENANCE Final Result from Last 3 Months or Most Recently Relevant to Health Maintenance Insurance MEDICARE [facility] Care Teams Kiln Fireman Relationship Specialty Start Date End Date Roby Romero MD [address] [place], [place] PCP - General Internal Medicine 02/02/22
--- OUTSIDE RECORDS SUMMARY | 2024-11-02 10:25 | XMS_ITS | Encounter Summary ---
Author Organization [facility] Address [address] [place] [address] Care Team Providers Care Paint Booth Operator Name Role Phone Roby Romero MD Primary Care Pr ovider Reason for Referral * Consultation (Urgent) - Authorized Specialty Diagnoses / Procedures Referred By Conttimothy t Referred To Contact Urology Diagnoses Pain in right testicle Roby Romero MD [address] [place] [id number] Phone: tel: fax: Referral ID Status Reason Start Date Expiration Date Visits Requested Visits Authorized [id number] Authorized Specialty Services Required 11/02/2024 11/02/2025 1 1 Reason for Visit * Reason Onset Date Comments Testicle Pain 11/02/2024 Encounter Details Date Type Department Care Team (Late st Contact Info) Description 11/02/2024 Nurse Triage Adult Medicine [address] [phone] Roby Romero MD [address] [place] [address] Testicle Pain Social History Tobacco Use Types Packs/Day Years [...] care for your loved ones. For example, early childhood educator aide or elderly care for an older adult? [...] on file documented as of this encounter Progress Notes * Elvie Phillip RN - 11/02/2024 9:46 AM EDT He was advised per Dr. Romero; He needs to go to the emergency room immediately as he likely hastesticular torsion which can result in losing the testicle. I have signed the referral but my recommendation is ER visit immediately. He states he is currently at the [facility] in [place]. Referral, snap shot and insurance information faxed to [facility] at . Attempted to call their office at and left a message regarding the above. * Roby Romero MD - 11/02/2024 9:27 AM EDT He needs to go to the emergency room immediately as he likely has testicular torsion which can result in losing the testicle. I have signed the referral but my recommendation is ER visit immediately.Thanks * Elvie Phillip RN - 11/02/2024 9:15 AM EDT Called and spoke to pt. He is reporting pain to his right testicle for the past 3 days. No apparent injury apart from his granddaughter playing in his lap. He states he had epididymitis in his left testicle in the past and this pain is similar. He is unsure if there is swelling as the pain is so severe he does not want to touch his testicle. He rates the pain as 9/10 before taking Oxycodone and 7/10 after the Oxycodone. The pain increases at the onset of urination. No fever. He states the pain started in his right lower back, radiated to his right leg, then to his right groin and finally to his testicle. He states he called a urologist Rachid Mckeon for an emergency appointment. Pt was advised to go to the ER. Pt states he will go to [facility] if unable to get in to see the urologist. * Belkis Medina - 11/02/2024 8:53 AM EDT Patient call requires triage: Symptoms patient is presenting: Right testicle pain. Might be a little swollen unsure. No discoloration. Taking medication but since last night its getting worse. How long has patient had these symptoms?: 3 days For ALL patients calling to schedule any appointment (routine, sick visit, follow up, consult, etc.) in the outpatient setting please ask the following questions: Do you have fever of higher than 101, sore throat with difficulty swallowing or severe shortness ofbreath? no If YES to any of these above symptoms, send a message to triage and do not book. Red dot. If no, an audio or video visit should be booked. Have you had close contact with someone with Coronavirus in the last 14 days? no Have you traveled abroad? no Have you traveled recently to another state outside of [place], [place], [place], [place], [place], [place], [place]? no o If yes, did you quarantine for 14 days or have a negative covid test? no If yes to any of the above, patient is not to be scheduled in office until after 14 day quarantine or negative covid test. If pain or injury related was it due to an accident at work or from a motor vehicle accident? If yes, date of accident/Injury: No If yes, gather 3rd republican insurance information Third Libertarian Information: not applicable PCP: Roby Romero MD Payor: MEDICARE / Plan: MEDICARE PART A & B / Product Type: Medicare / documented in this encounter Plan of Treatment Upcoming Encounters Date Type Department Care Team (Late st Contact Info) Description 11/13/2024 9:20 AM EDT Office Visit [facility] [address] [facility] 154 [place] [address] Akanksha Burton MD [address] [place] [address] 12/06/2024 9:00 AM EDT Office Visit Adult Medicine [address] [place] [address] Bonny Morton PA [address] [place] [address] 04/30/2025 9:45 AM EST Office Visit Pul[facility] 175 [facility] [address] [place] [address] Juhi Snow NP 175 [facility] [address] [place] [address] 08/23/2025 11:00 AM EST Office Visit [facility] Hematology Oncology [address] [place] [phone] Marga-Dick Fang MD [address] [place] [phone] Scheduled Referrals Name Type Priority Associated Diagnoses Order Schedule Ambulatory referral to Urology Outpatient Referral STAT Pain in right testicle 1 Occurrences starting 11/02/2024 until 11/02/2025 documented as of this encounter Visit Diagnoses Diagnosis Pain in right testicle- Primary Unspecified disorder of male genital organs documented in this encounter Additional Health Concerns Assessment Noted Time PHQ-9 Depression Total Score: 11 06/27/ 024 9:03 PM EST documented as of this encounter Care Teams Paint Booth Operator Relationship Specialty Start Date End Date Roby Romero, MD [address] [place] [address] PCP - General Internal Medicine 02/02/22 documented as of this encounter
--- OUTSIDE RECORDS SUMMARY | 2024-11-02 10:25 | XMS_ITS | Encounter Summary ---
Author Organization [facility] Address [address] [place] [address] Care Team Providers Care Belt And Link Assembly Supervisor Name Role Phone Roby Romero MD Primary Care Pr ovider Encounter Details Date Type Department Care Team ([facility] Contact Info) Description 09/20/2024 Nurse Triage Adult Medicine [address] [phone] Bonny Morton PA [address] [place] [address] Social History Tobacco Use Types Packs/Day Years [...] for your loved ones. For example, child and adolescent psychologist or elderly care for an older adult? [...] Description 11/13/2024 9:20 AM EDT Office Visit [facility] - [facility] [address] [facility] 154 [place] [address] Akanksha Burton MD 300 [place] [address] 12/06/2024 9:00 AM EDT Office Visit Adult Medicine [facility] [address] [place] [address] Bonny Morton PA [address] [place] [address] 04/30/2025 9:45 AM EST Office Visit Pul[facility]gy [facility] [address] [phone] Juhi Snow NP [address] [address] 08/23/2025 11:00 AM EST Office Visit [facility] Hematology Oncology [address] [place] [phone] Dick Lim MD [address] [place] [phone] documented as of this encounter Visit Diagnoses Not on filedocumented in this encounter Additional Health Concerns Assessment Noted Time PHQ-9 Depression Total Score: 11 024 9:03 PM EST documented as of this encounter Care Teams Belt And Link Assembly Supervisor Relationship Specialty Start Date End Date Roby Romero MD [address] [place], [place] PCP - General Internal Medicine 02/02/22 documented as of this encounter
--- OUTSIDE RECORDS SUMMARY | 2024-11-02 10:25 | XMS_ITS | Encounter Summary ---
Author Organization [facility] Address [address] [place] [address] Care Team Providers Care Accounting Clerks Supervisor Name Role Phone Roby Romero MD Primary Care Pr ovider Reason for Visit * Reason Onset Date Comments Appointment 10/26/2024 Encounter Details Date Type Department Care Team ([facility] st Contact Info) Description 10/26/[address] [facility] - [facility] [address] [phone] Akanksha Burton MD 300 [place] [address] Appointment Social History Tobacco Use Types Packs/Day Years [...] your loved ones. For example, child and family services worker or elderly care for an older adult? [...] as of this encounter Progress Notes * Wilda White - 10/26/2024 11:05 AM EDT Reached out and left a message to scheduled for the next available opening with dr. Burton. Please book from internal referral. documented in this encounter Plan of Treatment Upcoming Encounters Date Type Department Care Team (Late st Contact Info) Description 11/13/2024 9:20 AM EDT Office Visit [facility] - [facility] 154 [address] [facility] 154 [place] [address] Akanksha Burton MD 300 [place] [address] 12/06/2024 9:00 AM EDT Office Visit Adult Medicine [address] [place] [address] Bonny Morton PA [address] [place] [address] 04/30/2025 9:45 AM EST Office Visit [facility] 175 [facility] 200 [place] [phone] Juhi Snow NP 175 [facility] 200 [place] [address] 08/23/2025 11:00 AM EST Office Visit [facility] Hematology Oncology [address] [place] [phone] Marga-Dick Fang MD [address] [place] [phone] documented as of this encounter Visit Diagnoses Not on filedocumented in this encounter Additional Health Concerns Assessment Noted Time PHQ-9 Depression Total Score: 11 024 9:03 PM EST documented as of this encounter Care Teams Accounting Clerks Supervisor Relationship Specialty Start Date End Date Roby Romero MD [address]40 [facility], [place] PCP - General Internal Medicine 02/02/22 documented as of this encounter
--- NOTE | 2024-11-02 10:28 | AM.OFFWIN_ITS ---
Intake Vital Signs 11/02/24 10:38 Weight 296 lb BP 120/76 Blood Pressure Location Lt brachial Position Sitting Pulse 68 Pulse Source Pulse Oximeter Pulse Oximetry (%) 98 Oxygen Delivery Method Room Air Intake Visit Reasons: EP pain on testicles, leg, and hip Intake Note: Patient here for right testicle, leg and hip pain that has started about 3 days ago. Patient Tobacco Use Status: Former Tobacco user Allergies metformin Adverse Reaction (Severe, Verified 11/02/24 11:07) Diarrhea atorvastatin Adverse Reaction (Unknown, Verified 11/02/24 11:07) uknown canagliflozin Adverse Reaction (Unknown, Verified 11/02/24 11:07) Unknown dapagliflozin Adverse Reaction (Unknown, Verified 11/02/24 11:07) unknown meperidine [From Demerol] Adverse Reaction (Unknown, Verified 11/02/24 11:07) Unknown pioglitazone Adverse Reaction (Unknown, Verified 11/02/24 11:07) Unknown Seasonal Allergies Adverse Reaction (Unknown, Verified 11/02/24 11:07) Unknown spironolactone Adverse Reaction (Unknown, Verified 11/02/24 11:07) Unknown topiramate Adverse Reaction (Unknown, Verified 11/02/24 11:07) Unknown Medication List - Last Reconciled 11/02/24 by Jael Hill, [facility]- albuterol sulfate 90 mcg/actuation 0 mcg inhalation aspirin 81 mg PO DAILY blood sugar diagnostic (OneTouch Ultra Test strips) As directed 4 times a day blood-glucose meter (OneTouch Ultra2 Meter) As directed ChangePanda G6 Sensor (blood-glucose sensor) continous use change every 10 days NS Dexcom G6 Transmitter (blood-glucose transmitter) change every 90 days for use with G6 sensors NS dulaglutide (Trulicity) 4.5 mg (0.5 mL) subcut QWEEK insulin regular hum U-500 conc (Humulin R U-500 (Conc) Insulin Kwikpen) 120 unit breakfast 100 unit supper may increase by 6 units subcutaneously 2 times a day; lancets ([facility] May[facility] Delica Lancets) As directed 4 times a day losartan 50 mg PO DAILY rosuvastatin 40 mg PO DAILY HPI HPI Comments History of Present Illness Details History of Present Illness - The patient is a 69-year-old male pres enting with right testicular, leg, and hip pain. - Pain commenced three days before the c onsultation. - Initial symptoms resembled right hip s ciatic discomfort, but did not follow the typical path of sciatica and instead migrated towards the groin and testicle. - Right testicular pain was exacerbated by touch. - The patient's past medical history of epididymitis suggests a potential cause; however, current symptoms differ and do not indicate an active infection. - The patient experiences normal urinati on but describes discomfort in the groin associated with urination and a persistently dribbling stream. - The patient self-manages pain with lid ocaine and oxycodone, despite adverse reactions to opioids. - He reported previous kidney stones and multiple surgeries, influencing current pain management sensitivity. Exam Awake alert NAD MMM RRR No CVAT No abd tenderness Benign exam. Results UA as below, negative for blood Xray as below. Discussion Notes During the consultation, I discussed the possibility of kidney stones given the patient's history and the character of his pain. I recommended a urine analysis and imaging to identify any potential obstructions or stones. We also agreed on running basic labs for a comprehensive investigation. Assessment and Plan Xray no acute findings Urine WNL Exam benign Recommended f/u with PCP to review need for additional testing, such as US Start flomax in case there is a stone that the KUB did not picker/puller. Edu on reasons to seek ED level of care and also made aware of the limitations of work up in the walk in. Consent Patient was informed and verbally consented to the use of an ambient scribe for clinic note documentation during this visit. Total time spent caring for the patient today was 40 minutes. This includes time spent before the visit reviewing the chart, time spent during the visit, and t vic spent after the visit on documentation, reviewing laboratory results, diagnostic imaging, medications, performing a medically necessary evaluation, counseling on diagnoses, care coordination, ordering appropriate tests, ordering appropriate medications, review of tests performed by other providers, reporting test results with the patient, communication with other healthcare providers. [facility] Medical History (Updated 11/02/24 @ 11:15 by ALEX Rose-) Peripheral vascular disease Uncontrolled type 2 diabetes circulatory disorder erectile dysfunction Uncontrolled type 2 diabetes mellitus with hyperglycemia, with long-term current use of insulin Surgical History History of cosmetic plastic surgery History of facial surgery Hx of cholecystectomy Hx of foot surgery Hx of knee surgery Hx of shoulder surgery Family History Father Diabetes mellitus, type II Mother Dementia Social History Household Members: Spouse Household Members Other:: Alcohol intake: current Alcohol intake frequency: holidays/special occasions only Patient Tobacco Use Status: Former Tobacco user Substance Use Type: Marijuana Physical Exam Vital Signs: Last Vital Signs Pulse 68 11/02/24 10:38 BP 120/76 11/02/24 10:38 Pulse Ox 98 11/02/24 10:38 Oxygen Delivery Method Room Air 11/02/24 10:38 Results AMB Urinalysis, Automated UA Leukoctes 0 Ivonne/uL Last Edit by Vipul Polo [facility] on 11/02/24 11:44 UA Nitrite Negative Last Edit by Vipul Polo [facility] on 11/02/24 11:44 UA Urobilinogen 0.2 mg/dL Last Edit by Vipul Polo [facility] on 11/02/24 11:44 UA Protein 100 mg/dL Last Edit by Vipul oPlo [facility] on 11/02/24 11:44 UA pH 5.5 Last Edit by Vipul Polo [facility] on 11/02/24 11:44 UA Blood 0 Rajesh/uL Last Edit by Vipul Polo [facility] on 11/02/24 11:44 UA Specific Roosevelt 1.030 Last Edit by Vipul Polo [facility] on 11/02/24 1 1:44 UA Ketone Negative Last Edit by Vipul Polo [facility] on 11/02/24 11:44 UA Bilirubin 1 mg/dL Last Edit by Vipul Polo [facility] on 11/02/24 11:44 UA Glucose 0 mg/dL Last Edit by Vipul Pool [facility] on 11/02/24 11:44 Results Reviewed Results Reviewed: Laboratory Last Values Urine pH (Auto) 5.5 11/02/24 11:42 Specific Roosevelt (Auto) 1.030 11/02/24 11:42 Urine Protein (Auto) 100 mg/dL 11/02/24 11:42 Glucose (UA)(Auto) 0 mg/dL 11/02/24 11:42 Urine Ketones (Auto) Negative 11/02/24 11:42 Urine Blood (Auto) 0 Rajesh/uL 11/02/24 11:42 Urine Nitrite (Auto) Negative 11/02/24 11:42 Urine Bilirubin (Auto) 1 mg/dL 11/02/24 11:42 Urine Urobilinogen (Auto) 0.2 mg/dL 11/02/24 11:42 Leukocyte Esterase (Auto) 0 Ivonne/uL 11/02/24 11:42 [facility] [place] [address] XRay Report Signed Patient: Nate Perkins MR#: [id number] : 1955 Acct:[id number] Age/Sex: 69 / M ADM Date: 11/02/24 [facility] Attending Dr: Jael PADILLA Ordering Physician: Jael Hill Date of Service: 11/02/24 Procedure(s): XR KUB Accession Number(s): [id number] cc: Jael Hill; Roby Romero MD~ EXAMINATION: XR ABDOMEN KUB CLINICAL INDICATION: N50.811 - Right testicular pain COMPARISON: None available. TECHNIQUE: AP view of the abdomen. FINDINGS: Bowel gas pattern is normal/nonspecific. No focally dilated loop evident. Moderate fecal burden seen throughout the colon. Device overlying the liver is likely artifact, possibly a car reyes. Cholecystectomy clips are present. No organomegaly. No definite calculi identified overlying the renal shadows or expected courses of the ureters, although finding is complicated by the presence of abundant stool overlying the renal shadows. The lung bases are clear. There are degenerative changes in the spine, SI joints and bilateral hip joints. No bone lesions evident. XR/XR KUB IMPRESSION: No acute findings of the abdomen. No abnormal calcifications seen allowing for limitations as discussed. Electronically signed by: Pavan Rossi MD 11/02/2024 11:45 AM EDT Assessment & Plan Assessment & Plan (1) Right testicular pain: Code(s): N50.811 - Right testicular pain (2) Right flank pain: Code(s): R10.9 - Unspecified abdominal pain (3) History of kidney stones: Code(s): Z87.442 - Personal history of urinary calculi (4) History of epididymitis: Code(s): Z87.438 - Personal history of other diseases of male genital organs Plan . Orders: Orders XR KUB Today N50.811 - Right testicular pain, R10.9 - Unspecified abdominal pain, Z87.438 - Personal history of other diseases of male genital organs, Z87.442 - Personal history of urinary calculi AMB Urinalysis Automated Today Z13.9 - Encounter for screening, unspecified Medications: New tamsulosin (Flomax) 0.4 mg PO DAILY 14 caps 0RF Coding Level of Care Code Est Pt Level 5 (32391) Diagnoses Right testicular pain N50.811 Right flank pain R10.9 History of kidney stones Z87.442 History of epididymitis Z87.438
[2024-11-02 10:38] VITALS: BP 120/76; PULSE 68; O2SAT 98
== END 2024-11-02 12:05 | disposition home or self-care (01) ==
PROVIDERS: PCP Family Medicine; Visit Provider Nurse Practitioner Family
DX: N50.811 Right testicular pain (principal); R10.9 Unspecified abdominal pain; Z87.442 Personal history of urinary calculi; Z87.438 Personal history of other diseases of male genital organs

== ENCOUNTER → 2024-11-02 11:28 | Outpatient (BNV) | payer MEDICARE, OTHER, SELFPAY | PROVIDERS: PCP Family Medicine; Visit Provider Radiology Diagnostic Radiology | DX: N50.811 Right testicular pain (principal) | CPT/HCPCS: 74018 ==

== ENCOUNTER 2024-12-26 09:09 | Outpatient (AMB) | payer MEDICARE, OTHER, SELFPAY ==
--- NOTE | 2024-12-26 09:09 | MHC.OFFVIS ---
Intake Visit Reasons: testicular pain/ nocturia Intake Note: New Patient is present for testicular pain and nocturia PHx kidney stones Urology Rx:Tamsulosin Blood Thinners: asprin Imaging completed: 11/02/24 PVR : 4 ml's Boring Machine Operator Helper Required: No Accompanied by: Self / Same As Patient Allergies metformin Adverse Reaction (Severe, Verified 12/26/24 09:14) Diarrhea atorvastatin Adverse Reaction (Unknown, Verified 12/26/24 09:14) uknown canagliflozin Adverse Reaction (Unknown, Verified 12/26/24 09:14) Unknown dapagliflozin Adverse Reaction (Unknown, Verified 12/26/24 09:14) unknown meperidine (From Demerol) Adverse Reaction (Unknown, Verified 12/26/24 09:14) Unknown pioglitazone Adverse Reaction (Unknown, Verified 12/26/24 09:14) Unknown Seasonal Allergies Adverse Reaction (Unknown, Verified 12/26/24 09:14) Unknown spironolactone Adverse Reaction (Unknown, Verified 12/26/24 09:14) Unknown topiramate Adverse Reaction (Unknown, Verified 12/26/24 09:14) Unknown HPI Comments Details: Nate is a pleasant male. He is a patient of . He is seen for the following urologic conditions - lower urinary tract symptoms - testicular pain - erectile dysfunction in setting of diabetes Lower urinary tract symptoms Poorly controlled diabetes on Trulicity, insulin UA 3+ Erectile dysfunction in setting of diabetes Prior trial on demand sildenafil Add daily tadalafil for bladder control PFSH Medical History (Updated 12/26/24 @ 09:41 by Rachid Barton MD) Peripheral vascular disease Uncontrolled type 2 diabetes mellitus with hyperglycemia, with long-term current use of insulin Uncontrolled type 2 diabetes circulatory disorder erectile dysfunction Surgical History History of cosmetic plastic surgery History of facial surgery Hx of knee surgery Hx of shoulder surgery Hx of cholecystectomy Hx of foot surgery Family History Father Diabetes mellitus, type II Mother Dementia Social History Household Members: Spouse Household Members Other:: Alcohol intake: current Alcohol intake frequency: holidays/special occasions only Patient Tobacco Use Status: Former Tobacco user Substance Use Type: Marijuana Review of Systems Const Denies chills and Denies fever(s) Card Reports no additional complaints and Denies syncope Resp Denies cough GI Denies abdominal pain and Denies heartburn Reports as per HPI and Denies change in libido Neuro Denies syncope Psych Denies change in libido Endo Denies change in libido Physical Exam Const General: cooperative, healthy appearing, comfortable and no acute distress Orientation/consciousness: patient oriented x3 HEENT Face and sinus: Yes normal facial exam Mouth: moist mucous membranes Neck Neck: Yes normal visual inspection, Yes full ROM and Yes trachea midline Chest Chest palpation & inspection: normal inspection of the chest Resp Effort & Inspection: normal respiratory effort, able to speak in complete sentences and no respiratory distress GI Inspection: Yes normal to inspection Back/Spine/Pelvis Cervical Spine: normal cervical lordosis Thoracic/Lumbar Spine: thoracic and lumbar spine normal to inspection Skin General skin exam: no rashes or lesions noted Neuro General: patient oriented x3, gait normal, tone normal and moves all extremities Extrem General: Yes normal to inspection and Yes capillary refill normal Assessment & Plan Assessment & Plan (1) Weak urinary stream: Code(s): R39.12 - Poor urinary stream Category: Medical (2) Urinary urgency: Code(s): R39.15 - Urgency of urination Category: Medical Plan Trial daily tadalafil Medications: New tadalafil 5 mg PO DAILY 90 tabs 0RF sexual activity 90 days E11.69 - Type 2 diabetes mellitus with other specified complication, N52.01 - Erectile dysfunction due to arterial insufficiency, N52.1 - Erectile dysfunction due to diseases classified elsewhere, N52.9 - Male erectile dysfunction, unspecified, R39.12 - Poor urinary stream Patient Instructions: This note is constructed using voice recognition software. While every effort has been made to ensure accuracy glass decorator errors may have been included. Imaging studies, laboratory and physical exam results were discussed and reviewed in detail. No major barriers to patient understanding were identified. An opportunity to ask questions regarding the treatment plan was provided. All questions were answered. The patient expressed understanding and agreement with the above treatment plan. The patient is aware they should contact our office by phone for worsening of their current condition or the appearance of new urologic symptoms. Compliance is encouraged with any medications and followup testing that is ordered. It is a privilege to participate in the urologic care of your patient. If you have any questions or concerns regarding treatment for the above conditions, or other urologic issues, please do not hesitate to contact me. The office telephone contact is [phone]. Sincerely, Dr Rachid Barton MD, [facility] - Urology Compassionate Specialist Care for the Genitourinary System Coding Level of Care Code New Pt Level 3 (74353) Diagnoses Weak urinary stream R39.12 Urinary urgency R39.15
--- OUTSIDE RECORDS SUMMARY | 2024-12-26 09:39 | XMS_ITS | Clinical Summary ---
Author Organization [facility] Address [address] [id number] Care Team Providers Care Cook Room Supervisor Name Role Phone Gustavo Sena MD Primary Care Provider [phone] Allergies Active Allergy Reactions Criticality Noted Date [...] 2 - PCV) 2022 07/28/2007 COVID-19 Vaccine ( - season) 2024 04/02/2021, 09/25/2020, 09/04/2020 Influenza Vaccine (Season Ended) 2025 04/11/2021, 03/27/2020, 03/20/2019, Additional history exists RSV Adult > 60+ Yrs or (1 - 1-dose 75+ series) 2032 RSV Ped < 20 months Aged Out No longe r eligible based on patient's age to complete this topic Care Teams Cook Room Supervisor Relationship Specialty Start Date End Date Gustavo Sena MD [address] [place] [address] PCP - General Internal Medicine 01/13/22
--- OUTSIDE RECORDS SUMMARY | 2024-12-26 09:39 | XMS_ITS | Clinical Summary ---
Author Organization [facility] [address] [place] [address] Address [address] [facility] [place] [address] Phone Care Team Providers Care Superintendent Stations Name Role Phone Roby Romero MD Primary Care Pr ovider Allergies Active Allergy Reactions Criticality Noted Date Comments Atorvastatin 10/21/2021 Canagliflozin 10/21/2021 Dapagliflozin 10/21/2021 dizzy Duloxetine 10/21/2021 numbness Meperidine Hcl Nausea And Vomiting 07/09/2021 Metformin 10/21/2021 Other reaction(s): diarrhea Other 10/21/2021 Seasonal Allergies Pioglitazone 10/21/2021 edema Spironolactone 10/21/2021 breast sensuitive Topiramate 10/21/2021 fuzzy Medications insulin regular (HumuLIN R U-500) 500 unit/mL CONCENTRATED injection Inject 200 Units under the skin 2 (two) times a day before meals. 024 Active aspirin 81 mg EC tablet Take 1 Tablet by mouth daily. Active miscellaneous medical supply misc See Instructions, # 1 each, Refills 12, Tot. Refills 12, Maintenance, DX: PARTH Pressure of 8cm H2O, along with a large sized quattro fx full face MASK,TUBING,FI LTERS,HEADGEAR , CHIN STRAP AND WATER CHAMBER [phone], 06/04/17 7:50:32, Compound 017 Active losartan (COZAAR) 50 mg tabletIndications: Essential (primary) hypertension Take 1 tablet (50 mg total) by mouth 1 (one) time each day. 90 each 1 025 2024 Active rosuvastatin (CRESTOR) 40 mg tabletIndications: Mixed hyperlipidemia Take 1 tablet (40 mg total) by mouth at bedtime. at bedtime. 90 each 1 025 2024 Active dulaglutide (Trulicity) 4.5 mg/0.5 mL pen injector injectionIndicatio ns:Type 2 diabetes mellitus with microalbuminuria ([facility] V24, [facility] V28) Inject 0.5 mL (4.5 mg total) under the skin every 7 (seven) days. 025 Active albuterol HFA (PROAIR HFA ; PROVENTIL HFA ; VENTOLIN HFA) 90 mcg/actuation inhalerIndications :Chronic obstructive pulmonary disease, unspecified COPD type ([facility] V24, [facility] V28) INHALE 2 INHALATIONS BY MOUTH EVERY 4 HOURS IF NEEDED FOR WHEEZING 51 g 3 025 Active triamcinolone (KENALOG) 0.5 % ointment Apply topically 2 (two) times a day. Apply small amounts to affected area every 12 hours. Do not use for more than 14 days at a time 30 g 025 Active sildenafiL (VIAGRA) 100 mg tabletIndications: Erectile dysfunction, unspecified erectile dysfunction type Take 1 tablet (100 mg total) by mouth if needed for erectile dysfunction. Take one tablet 30 mins to an hour prior to sexual activity 90 tablet 025 Active diclofenac (VOLTAREN) 75 mg EC tablet Take 1 tablet (75 mg total) by mouth 2 (two) times a day if needed (pain). Do not crush, chew, or split. 60 tablet 1 025 Active Perforomist 20 mcg/2 mL nebulizer solutionIndication s:Chronic obstructive pulmonary disease, unspecified COPD type ([facility] V24, [facility] V28) USE 1 VIAL IN NEBULIZER TWICE DAILY - Morning and Evening 60 each 11 025 Active budesonide (PULMICORT) 0.5 mg/2 mL nebulizer solutionIndication s:Chronic obstructive pulmonary disease, unspecified COPD type ([facility] V24, [facility] V28) USE 1 VIAL IN NEBULIZER TWICE DAILY - Rinse Mouth After Use. Wash Face Too If Mask Used 60 each 11 025 Active budesonide (PULMICORT) 0.5 mg/2 mL nebulizer solution Take 2 mL by nebulization 2 times daily. COPD J44.9 024 2024 Discontinued formoterol (PERFOROMIST) 20 mcg/2 mL nebulizer solution Take 2 mL by nebulization 2 times daily for 90 days. COPD J44.9 024 2024 Discontinued predniSONE (DELTASONE) 10 mg tabletIndications: Bilateral sciatica Take 30 mg PO daily for 3 days, then take 20 mg PO daily for 3 days, then 10 mg PO daily for 3 days, then stop 18 tablet 025 2024 Discontinued tamsulosin (FLOMAX) 0.4 mg 24 hr capsuleIndications :Calculus of kidney,Benign prostatic hyperplasia with weak urinary stream Take 1 capsule (0.4 mg total) by mouth 1 (one) time each day. Capsules should be taken 30 minutes following the same meal each day. 90 each 025 2024 Discontinued HYDROcodone-acetam inophen (NORCO) 10-325 mg per tablet Take 1 tablet by mouth every 8 (eight) hours if needed for severe pain for up to 28 days. Max Daily Amount: 3 tablets 84 tablet 025 2024 Discontinued(T herapy completed) Active Problems Problem Noted Date Diagnosed Date Coronary artery calcification 11/13/2024 Primary osteoarthritis of right hip 11/07/2024 Femoroacetabular impingement of right hip 2024 Asthma 08/30/2024 Cataract 08/30/2024 Chondromalacia of patella 08/30/2024 Overview (08/30/2024): nEOS Background diabetic retinopathy ([facility] V24, [facility] V28) 06/30/2024 Assessment & Plan (06/30/2024 6:29 [...] EST): Continue follow up with orthopedics at [facility]-Dr. Quintero . He is s/p Right [...] 1; average oxygen saturation 91% (lowest 87%); [facility] Polysomnogram: Date ; [...] upper eyelid 03/24/2022 Benign prostatic hyperplasia 03/24/2022 Assessment & Plan (11/06/2024 12:04 PM EDT): Continue with tamsulosin. He will follow-up with urology as scheduled Orders: tamsulosin (FLOMAX) 0.4 mg 24 hr capsule; Take 1 capsule (0.4 mg total) by mouth 1 (one) time each day. Capsules should be taken 30 minutes following the same meal each day. Calculus of kidney 03/24/2022 Overview (05/17/2024): neg ct urogram Assessment & Plan (11/06/2024 12:04 PM EDT): With symptoms seem consistent with a kidney stone. He will continue with the tamsulosin Has urology follow-up scheduled for December Will obtain stat retroperitoneal ultrasound Oxycodone 5 mg twice daily PRN-10 tablets prescribed to use as needed for pain MassPAT reviewed and appropriate Further recommendations pending ultrasound results Orders: US Retroperitoneal Complete; Future oxyCODONE (ROXICODONE) 5 mg immediate release tablet; Take 1 tablet (5 mg total) by mouth 2 (two) times a day if needed for severe pain. Max Daily Amount: 10 mg tamsulosin (FLOMAX) 0.4 mg 24 hr capsule; Take 1 capsule (0.4 mg total) by mouth 1 (one) time each day. Capsules should be taken 30 minutes following the same meal each day. Chronic pain syndrome 02/05/2022 Assessment & Plan [...] asso ciated with type 2 diabetes mellitus ([facility] V24, [facility] V28) 02/05/2022 Assessment & Plan (06/30/2024 6:29 PM EST): Continue with hempVana cream . Orders: Hemoglobin A1c; Future Erectile dysfunction 02/05/2022 Assessment & Plan (11/06/2024 12:04 PM EDT): Requesting paper prescription for Viagra which is printed for him Orders: sildenafiL (VIAGRA) 100 mg tablet; Take 1 tablet (100 mg total) by mouth if needed for erectile dysfunction. Take one tablet 30 mins to an hour prior to sexual activity Type 2 diabetes mellitus wit h microalbuminuria ([facility] V24, [facility] V28) 11/20/2021 Assessment & Plan (09/28/2024 2:17 PM EDT): Still poorly controlled. Continue follow-up with Dr. Dukes. Continue Trulicity 4.5 mg weekly and insulin regular U-500 200 units twice daily Orders: Hemoglobin A1c; Future Assessment & Plan (06/30/2024 6:29 PM EST): Continue Humulin U500 based on glucose readings Continue Trulicty 4.5mg weekly(he has supply to last till Jul directly from [employer]) He has reestablished care with gas adjuster-Dr. Waters but states that he will still [...] Encounters Date Type Department Care Team Description 12/19/2024 Telephone Pulmonolgy - [place] [address] [facility] [address] [place] [address] Juhi Snow NP dme request 12/11/2024 8:29 AM EDT - 12/11/2024 11:59 PM EDT Hospital Encounter Radiology Department - [place] [address] [place] [phone] Steatosis of liver Discharge Disposition: Home or Self Care 12/07/2024 9:36 AM EDT - 12/07/2024 11:59 PM EDT Hospital Encounter XRAY - [place] [address] [place] [address] Right shoulder pain, unspecified chronicity Discharge Disposition: Home or Self Care 12/06/2024 9:00 AM EDT Office Visit Adult [address] [phone] Bonny Morton PA Type 2 diabetes mellitus with microalbuminuria (CMS/HCC V24, CMS/HCC V28) (Primary Dx); Mixed hyperlipidemia; Diabetic polyneuropathy associated with type 2 diabetes mellitus (CMS/HCC V24, CMS/H[facility] V28); Essential (primary) hypertension; Chronic obstructive pulmonary disease, unspecified COPD type (CMS/HCC V24, CMS/HCC V28); Erectile dysfunction, unspecified erectile dysfunction type; Primary osteoarthritis of right hip; Femoroacetabular impingement of right hip; Sciatica of right side; Right shoulder pain, unspecified chronicity; Steatosis of liver 11/13/2024 9:20 AM EDT Office Visit [facility] [address] [phone] Akanksha Burton MD Coronary artery calcification (Primary Dx); Essential (primary) hypertension; Pericardial effusion 11/08/[address] [phone] Elvie Phillip, snipper Problem 11/08/2024 Nurse Triage [address] [phone] Roby Romero MD 11/06/2024 1:10 PM EDT - 11/06/2024 11:59 PM EDT Hospital Encounter XRAY [address] [phone] Right groin pain Discharge Disposition: Home or Self Care 11/06/2024 12:45 PM EDT - 11/06/2024 11:59 PM EDT Hospital Encounter Radiology Department [address] [phone] Pain in right testicle Discharge Disposition: Home or Self Care 11/06/2024 12:44 PM EDT - 11/06/2024 11:59 PM EDT Hospital Encounter Radiology Department [address] [phone] Calculus of kidney Discharge Disposition: Home or Self Care 11/06/2024 10:00 AM EDT Office Visit [address] [phone] Roby Romero MD Calculus of kidney (Primary Dx); Pain in right testicle; Bilateral sciatica; Right groin pain; Benign prostatic hyperplasia with weak urinary stream; Erectile dysfunction, unspecified erectile dysfunction type 11/02/[address] [phone] Roby Romero MD Testicle Pain 11/02/[address] [phone] Elvie Phillip RN 11/02/2024 Nurse Triage [address] [phone] Roby Romero MD Testicle Pain 10/26/2024 Telephone [facility] - [facility] [address] [facility] [address] [place] [address] Akanksha Burton MD Appointment 10/17/2024 8:00 AM EDT Ancillary Procedure [facility] Cardiology [facility] - [facility] [address] [place] [phone] Pericardial effusion 09/28/2024 2:10 PM EDT - 09/28/2024 11:59 PM EDT Hospital Encounter XRAY [address] [phone] Pain of finger of right hand; Paronychia of finger of right hand Discharge Disposition: Home or Self Care 09/28/2024 1:30 PM EDT Office Visit Adult Medicine [address] [phone] Roby Romero MD Pain of finger of right hand (Primary Dx); Paronychia of finger of right hand; Chronic coronary microvascular dysfunction; Pericardial effusion; Incomplete bladder emptying; Encounter for screening for malignant neoplasm of prostate; Type 2 diabetes mellitus with microalbuminuria (CMS/HCC V24, CMS/HCC V28) from Last 3 Months Immunizations Name Administration Dates Next Due H1N1 Inj Preservative Free 06/18/2009 Hepatitis A Adult (Havrix; V aqta) 19yo and older 10/24/2013,07/25/2013 Hepatitis B (Ohqrrxd-X-Ejfzs , Recombivax HB-Adult) 19yo and older 10/24/2013,07/25/2013 [...] SURGERY FOOT SURGERY Right x3 1999, 2000, 2002 KNEE SURGERY 06/26/2018 Bilateral Quadriceps Tendon Repair, Dr. Torres Medical History Medical History Date Comments Mixed hyperlipidemia Vitamin D deficiency Essential (primary) hypertension Chronic pain syndrome Obstructive sleep apnea : On CPA P Obesity Seizures ([facility] V24, [facility] V28) Type 2 diabetes mellitus wit h microalbuminuria ([facility] V24, [facility] V28) 11/20/2021 Family History Medical History Relation Name Comments Coronary artery disease Brother Dain ND i n his mid 50s Coronary artery disease Father ND w ith stent and CABG in 60s [...] Cigars sometimes Alcohol Use Standard Drinks/Week Comments Not Currently 2 (1 standard drink = 0.6 oz [...] your loved ones. For example, child support officer or elderly care for an older [...] Sign Reading Time Taken Comments Blood Pressure 130/58 12/06/2024 8:51 AM EDT Pulse 86 12/06/2024 8:51 AM EDT Temperature 36.3 C (97.3 F) 12/06/2024 8:51 AM EDT Respiratory Rate 18 12/06/2024 8:51 AM EDT Oxygen Saturation 95% 12/06/2024 8:51 AM EDT Inhaled Oxygen Concentration - - Weight 128 kg (281 lb 1.6 oz) 12/06/2024 8:51 AM EDT Height 190.5 cm (6' 3 ) 12/06/2024 8:51 AM EDT Body Mass Index 35.14 12/06/2024 8:51 AM EDT Plan of Treatment Upcoming Encounters Date Type Department Care Team (Late st Contact Info) Description 04/25/2025 9:45 AM EDT Office Visit Adult Medicine [facility] [address] [place] [phone] Roby Romero MD [address] [place] [address] 04/30/2025 9:45 AM EST Office Visit Pulmonolgy - [place] [address] [phone] Juhi Snow NP [address] [address] 08/23/2025 11:00 AM EST Office Visit [facility] [address] [place] [phone] Dick Lim MD [address] [place] [phone] Health Maintenance Due Date Last Done Comments Zoster Vaccines (1 of 2) 2007 RSV Immunization Adult Patients (1 - Risk 60-74 years 1-dose series) 2017 Diabetes: Annual Foot Exam 08/13/2024 08/13/2023 COVID-19 Vaccine ( season) 2024 05/06/2024, 04/20/2022, 10/30/2021, Additional history exists Diabetes: Annual Urine Albumin-Creatinine Ratio (uACR) 11/25/2024 11/26/2023, 06/11/2023, 06/11/2023 Diabetes: Annual Retina Eye Exam 12/02/2024 12/03/2023 Diabetes: Blood Sugar Control Test (HGBA1C) 03/30/2025 09/28/2024, 06/30/2024, 03/29/2024, Additional history exists Social Influencers of Health Screening 06/27/2025 06/27/2024 Medicare Annual Wellness Visit 06/30/2025 06/30/2024 Depression Screening 09/11/2025 09/11/2024 Falls Risk Assessment 09/12/2025 09/12/2024, 025 Lung Cancer Screening (Low Dose CT) 09/12/2025 09/12/2024 Diabetes: Annual GFR (Glomerular Filtration Rate) 12/07/2025 12/07/2024, 03/29/2024, 03/29/2024, Additional history exists Hypertension/CHF/CAD Annual BMP Blood Test 12/07/2025 12/07/2024, 03/29/2024, 03/29/2024, Additional history exists Cholesterol Screening (Lipid Panel) 03/29/2029 03/29/2024, 03/29/2024 DTaP,Tdap,and Td Vaccines (4 - Td or Tdap) 12/06/2030 12/06/2020, 10/09/2009, 07/28/1999 Colorectal Cancer Screening: Colonoscopy 10/31/2033 11/01/2023 Hepatitis A Vaccines Discontinued 10/24/2013, 07/25/19 14 Hepatitis B Vaccines Discontinued 10/24/2013, 10/24/2013, 07/25/2013 [...] Procedure Name Priority Date/Time Associated Diagnosis Comments US ABDOMEN LIMITED Routine 12/11/2024 8: 45 AM EDT Steatosis of liver XR SHOULDER 2+ VIEWS RIGHT Routine 12/07/2024 9:47 AM EDT Right shoulder pain, unspecified chronicity COMPREHENSIVE METABOLIC PANEL Routine 12/07/2024 9:26 AM EDT Steatosis of liver ECG 12-LEAD Routine 11/13/2024 9:22 AM EDT Coronary artery calcification XR HIP 2-3 VIEWS RIGHT Routine 1:23 PM EDT Right groin pain US SCROTUM AND CONTENTS STAT 11/06/2024 1:20 PM EDT Pain in right testicle US RETROPERITONEAL COMPLETE STAT 11/06/2024 1:20 PM EDT Calculus of kidney TRANSTHORACIC ECHOCARDIOGRAM (TTE) COMPLETE Routine 10/17/2024 8:45 AM EDT Pericardial effusion PROSTATE SPECIFIC ANTIGEN SCREEN Routine 09/28/2024 2:37 PM EDT Incomplete bladder emptying Encounter for screening for malignant neoplasm of prostate HEMOGLOBIN A1C Routine 09/28/2024 2:37 PM EDT Type 2 diabetes mellitus with microalbuminuria (CMS/HCC V24, CMS/HCC V28) XR FINGERS 2+ VIEWS RIGHT Routine 09/28/2024 2:21 PM EDT Pain of finger of right hand Paronychia of finger of right hand CT LUNG SCREENING Routine 09/12/2024 11: 36 AM EDT Ex-smoker Encounter for screening for lung cancer US ABDOMEN AORTIC ANEURYSM SCREENING Routine 07/04/2024 8:59 AM EST Encounter for abdominal aortic aneurysm (AAA) screening LIPID PANEL Routine 03/29/2024 DIABETES EYE EXAM Routine 12/03/2023 URINE ALBUMIN CREATININE RATIO Routine 11/26/2023 COLONOSCOPY Routine 11/01/2023 DIABETES FOOT EXAM Routine 08/13/2023 HEPATITIS C SCREENING Routine 07/21/2022 from Last 3 Months or Most Recently Relevant to Health Maintenance Results * US Abdomen Limited (12/11/2024 8:45 AM EDT) Anatomical Region Laterality Modality Body Ultrasound 12/11/2024 10:3 5 AM EDT Impressions 12/11/2024 10:37 AM EDT Hepatic steatosis. Status post cholecystectomy. -------- FINAL REPORT -------- Dictated By: Ashtyn Bertrand Dictated Date: 12/11/2024 10:35 ET Assigned Physician: Ashtyn Bertrand Reviewed and Electronically Signed By: Ashtyn Bertrand Signed Date: 12/11/2024 10:37 ET Workstation ID: [id number] Transcribed By: Self Edit Transcribed Date: 12/11/2024 10:35 ET Narrative 12/11/2024 10:37 AM EDT ABDOMINAL ULTRASOUND-LIMITED History: Fatty liver. Comparison: Retroperitoneal ultrasound 11/06/2024. Right upper quadrant ultrasound 02/23/2022. FINDINGS: The gallbladder is surgically absent. The common bile duct is not dilated, measuring 3 mm. No ascites are seen. The visualized pancreas is normal in size and demonstrates normal echotexture. The liver measures 17.7 cm length and demonstrates echogenic echotexture. No focal lesions are seen in the liver and there is no evidence of intrahepatic ductal dilation. Normal hepatopedal flow is seen in the main portal vein. No evidence of hydronephrosis, mass, or calculus was seen in the right kidney. The right kidney measures 12.0 cm in greatest length. Procedure Note Ashtyn Bertrand MD - 12/11/2024 ABDOMINAL ULTRASOUND-LIMITED History: Fatty liver. Comparison: Retroperitoneal ultrasound 11/06/2024. Right upper quadrantultrasound 02/23/2022. FINDINGS: The gallbladder is surgically absent. The common bile duct isnot dilated, measuring 3 mm. No ascites are seen. The visualized pancreas is normal in size and demonstrates normalechotexture. The liver measures 17.7 cm length and demonstrates echogenic echotexture.No focal lesions are seen in the liver and there is no evidence ofintrahepatic ductal dilation. Normal hepatopedal flow is seen in the mainportal vein. No evidence of hydronephrosis, mass, or calculus was seen in the rightkidney. The right kidney measures 12.0 cm in greatest length. IMPRESSION: Hepatic steatosis. Status post cholecystectomy. -------- FINAL REPORT -------- Dictated By: Ashtyn Bertrand Dictated Date: 12/11/2024 10:35 ET Assigned Physician: Ashtyn Bertrand Reviewed and Electronically Signed By: Ashtyn Bertrand Signed Date: 12/11/2024 10:37 ET Workstation ID: [id number] Transcribed By: Self Edit Transcribed Date: 12/11/2024 10:35 ET us Bonny DALAL IMG US PROCEDURES Final Resul t * XR Shoulder 2+ Views Right (12/07/2024 9:47 AM EDT) Anatomical Region Laterality Modality Upper Extremities, Shoulder Right Radi ographic Imaging 12/07/2024 1:28 PM EDT Impressions 12/07/2024 1:30 PM EDT 1. No acute fracture or dislocation of the right shoulder. 2. Moderate degenerative changes of the right shoulder. -------- FINAL REPORT -------- Dictated By: Ave Kline Dictated Date: 12/07/2024 13:28 ET Assigned Physician: Ave Kline Reviewed and Electronically Signed By: Ave Kline Signed Date: 12/07/2024 13:30 ET Workstation ID: [id number] Transcribed By: Self Edit Transcribed Date: 12/07/2024 13:28 ET Narrative 12/07/2024 1:30 PM EDT HISTORY: right shoulder pain, fall in October TECHNIQUE: 4 views of the right shoulder COMPARISON: None FINDINGS: No acute fracture or dislocation is seen. There is moderate glenohumeral joint space narrowing with subchondral sclerosis. Small osteophytes of the inferior glenoid and humeral head. Moderate narrowing of the acromioclavicular joint. Procedure Note Ave lKine MD - 12/07/2024 HISTORY: right shoulder pain, fall in October TECHNIQUE: 4 views of the right shoulder COMPARISON: None FINDINGS: No acute fracture or dislocation is seen. There is moderate glenohumeraljoint space narrowing with subchondral sclerosis. Small osteophytes ofthe inferior glenoid and humeral head. Moderate narrowing of theacromioclavicular joint. IMPRESSION: 1. No acute fracture or dislocation of the right shoulder. 2. Moderate degenerative changes of the right shoulder. -------- FINAL REPORT -------- Dictated By: Ave Kline Dictated Date: 12/07/2024 13:28 ET Assigned Physician: Ave Kline Reviewed and Electronically Signed By: Ave Kline Signed Date: 12/07/2024 13:30 ET Workstation ID: [id number] Transcribed By: Self Edit Transcribed Date: 12/07/2024 13:28 ET Bonny DALAL IMG XR PROCEDURES Final Resul t * (ABNORMAL) Comprehensive metabolic panel (12/07/2024 9:26 AM EDT) Sodium 138 133 - 145 mmol/L LAB CHEMISTRY METHOD 12/07/2024 1:15 PM EDT [facility] Potassium 4.2 3.5 - 5.5 mmol/L LAB CHEMISTRY METHOD 12/07/2024 1:15 PM EDT [facility] Chloride 107 96 - 110 mmol/L LAB CHEMISTRY METHOD 12/07/2024 1:15 PM EDT [facility] CO2 26 21 - 32 mmol/L LAB CHEMISTRY METHOD 12/07/2024 1:[address] [facility] Anion Gap 5 3 - 11 LAB CHEMISTRY METHOD 12/07/2024 1:[address] [facility] Glucose 251(H) 70 - 100 mg/dL LAB CHEMISTRY METHOD 12/07/2024 1:[address] [facility] BUN 15 5 - 25 mg/dL LAB CHEMISTRY METHOD 12/07/2024 1:[address] [facility] Creatinine 1.00 0.70 - 1.30 mg/dL LAB CHEMISTRY METHOD 12/07/2024 1:[address] [facility] eGFR 82 >=60 mL/min/1. 73m2 LAB CHEMISTRY METHOD 12/07/2024 1:[address] [facility] Comment:Calculation based on the Chronic Kidney Disease Epidemiology Collaboration (CKD-EPI) equation refit without adjustment for race. BUN/Creatinine Ratio 15.0 LAB CHEMISTRY METHOD 12/07/2024 1:[address] [facility] Calcium 9.0 8.5 - 10.5 mg/dL LAB CHEMISTRY METHOD 12/07/2024 1:[address] [facility] AST (SGOT) 16 10 - 42 unit/L LAB CHEMISTRY METHOD 12/07/2024 1:[address] [facility] ALT (SGPT) 35 10 - 60 unit/L LAB CHEMISTRY METHOD 12/07/2024 1:[address] [facility] Alkaline Phosphatase 67 42 - 121 unit/L LAB CHEMISTRY METHOD 12/07/2024 1:[address] [facility] Total Protein 6.5 6.0 - 8.0 g/dL LAB CHEMISTRY METHOD 12/07/2024 1:[address] [facility] Albumin 3.9 3.2 - 5.0 g/dL LAB CHEMISTRY METHOD 12/07/2024 1:[address] [facility] Total Bilirubin 0.9 0.0 - 1.4 mg/dL LAB CHEMISTRY METHOD 12/07/2024 1:15 PM EDT [facility] Blood Venous blood specimen / Unknown Venipuncture / Unknown 12/07/2024 9:26 AM EDT 12/07/2024 9:26 AM EDT Bonny DALAL LAB BLOOD ORDERABLES Final Re sult Performing Organization Address [facility] Co de Phone Number [facility] [address] [place] [address], [place] [phone] * ECG 12 lead (11/13/2024 9:22 AM EDT) Ventricular Rate ECG 82 BPM GEMUSE Atrial Rate 82 BPM GEMUSE P-R Interval 156 ms GEMUSE QRS Duration 92 ms GEMUSE Q-T Interval 390 ms GEMUSE QTc 455 ms GEMUSE P Wave [place] 81 degrees GEMUSE R [place] 84 degrees GEMUSE T [place] 70 degrees GEMUSE ECG Interpretation Normal sinus rhythm Nonspecific ST abnormality Abnormal ECG When compared with ECG of 01-OCT-2021 16:15, No significant change was found Confirmed by AKANKSHA BURTON ([id number]) on 11/13/2024 5:21:30 PM GEMUSE 11/13/2024 9:22 AM EDT 11/13/2024 5:21 PM EDT Akanksha Burton MD ECG ORDERABLES Final Result Performing Organization Address [facility] [facility] Co de Phone Number GEMUSE * XR Hip 2-3 Views Right (11/06/2024 1:23 PM EDT) Anatomical Region Laterality Modality Lower Extremities, Hip Right Radiograp hic Imaging 11/07/2024 10:1 3 AM EDT Impressions 11/07/2024 10:17 AM EDT Very mild degenerative changes involving the right hip, likely secondary to femoroacetabular impingement. POS - [id number] -------- FINAL REPORT -------- Dictated By: Darline Flores Dictated Date: 11/07/2024 10:13 ET Assigned Physician: Darline Flores Reviewed and Electronically Signed By: Darline Flores Signed Date: 11/07/2024 10:17 ET Workstation ID: [id number] Transcribed By: Self Edit Transcribed Date: 11/07/2024 10:13 ET Narrative 11/07/2024 10:17 AM EDT EXAM: Pelvic and right hip x-ray. HISTORY: Right hip pain. COMPARISON: None VIEWS: AP view of the pelvis and AP and frog-lateral views of the right hip performed. FINDINGS: Mild right acetabular spurring with preserved hip joint space. Contour bulge at the right femoral head neck junction indicating cam-type femoroacetabular impingement morphology. No evidence of an acute fracture or dislocation. Pelvic ring is intact. No destructive bone lesion. Procedure Note Darline Flores MD - 11/07/2024 EXAM: Pelvic and right hip x-ray. HISTORY: Right hip pain. COMPARISON: None VIEWS: AP view of the pelvis and AP and frog-lateral views of the righthip performed. FINDINGS: Mild right acetabular spurring with preserved hip joint space. Contourbulge at the right femoral head neck junction indicating cam-typefemoroacetabular impingement morphology. No evidence of an acute fractureor dislocation. Pelvic ring is intact. No destructive bone lesion. IMPRESSION: Very mild degenerative changes involving the right hip, likely secondaryto femoroacetabular impingement. POS - [id number] -------- FINAL REPORT -------- Dictated By: Darline Flores Dictated Date: 11/07/2024 10:13 ET Assigned Physician: Darline Flores Reviewed and Electronically Signed By: Darline Flores Signed Date: 11/07/2024 10:17 ET Workstation ID: [id number] Transcribed By: Self Edit Transcribed Date: 11/07/2024 10:13 ET us Roby Romero MD IMG XR PROCEDURE S Final Result * US Scrotum and Contents (11/06/2024 1:20 PM EDT) Anatomical Region Laterality Modality Body Ultrasound 11/06/2024 1:38 PM EDT Impressions 11/06/2024 1:44 PM EDT 1. Normal sonographic appearance of the testicles. 2. Very small right hydrocele. -------- FINAL REPORT -------- Dictated By: Sherrie Ching Dictated Date: 11/06/2024 13:38 ET Assigned Physician: Sherrie Ching Reviewed and Electronically Signed By: Sherrie Ching Signed Date: 11/06/2024 13:44 ET Workstation ID: [id number] Transcribed By: Self Edit Transcribed Date: 11/06/2024 13:38 ET Narrative 11/06/2024 1:44 PM EDT US SCROTUM AND CONTENTS TECHNIQUE: Scrotal Ultrasound. Scrotal color and spectral Doppler. REASON FOR EXAM: Right testicular and groin pain COMPARISON: None FINDINGS: Right hemiscrotum: - Testicle: 4.0 x 2.2 x 3.1 cm. Normal echotexture, without focal lesion. Doppler: Normal intratesticular blood flow with color Doppler. - Epididymis: Not well seen - Very small hydrocele. Prominent vessels, no obvious varicocele. Left hemiscrotum: - Testicle: 3.6 x 1.9 x 2.9 cm. Normal echotexture, without focal lesion. Doppler: Normal intratesticular blood flow with color Doppler. - Epididymis: Not well seen - No hydrocele. Prominent vessels, but no obvious varicocele. Procedure Note Sherrie Ching MD - 11/06/2024 US SCROTUM AND CONTENTS TECHNIQUE: Scrotal Ultrasound. Scrotal color and spectral Doppler. REASON FOR EXAM: Right testicular and groin pain COMPARISON: None FINDINGS: Right hemiscrotum: - Testicle: 4.0 x 2.2 x 3.1 cm. Normal echotexture, without focallesion. Doppler: Normal intratesticular blood flow with color Doppler. - Epididymis: Not well seen - Very small hydrocele. Prominent vessels, no obvious varicocele. Left hemiscrotum: - Testicle: 3.6 x 1.9 x 2.9 cm. Normal echotexture, without focallesion. Doppler: Normal intratesticular blood flow with color Doppler. - Epididymis: Not well seen - No hydrocele. Prominent vessels, but no obvious varicocele. IMPRESSION: 1. Normal sonographic appearance of the testicles. 2. Very small right hydrocele. -------- FINAL REPORT -------- Dictated By: Sherrie Ching Dictated Date: 11/06/2024 13:38 ET Assigned Physician: Sherrie Ching Reviewed and Electronically Signed By: Sherrie Ching Signed Date: 11/06/2024 13:44 ET Workstation ID: [id number] Transcribed By: Self Edit Transcribed Date: 11/06/2024 13:38 ET us Roby Romero MD IMNeptali US PROCEDURE S Final Result * US Retroperitoneal Complete (11/06/2024 1:20 PM EDT) Anatomical Region Laterality Modality Body Ultrasound 11/06/2024 1:34 PM EDT Impressions 11/06/2024 1:37 PM EDT No shadowing renal stones identified. -------- FINAL REPORT -------- Dictated By: Sherrie Ching Dictated Date: 11/06/2024 13:34 ET Assigned Physician: Sherrie Ching Reviewed and Electronically Signed By: Sherrie Ching Signed Date: 11/06/2024 13:37 ET Workstation ID: [id number] Transcribed By: Self Edit Transcribed Date: 11/06/2024 13:34 ET Narrative 11/06/2024 1:37 PM EDT US RETROPERITONEAL COMPLETE TECHNIQUE: Complete ultrasound evaluation of the retroperitoneum was performed. COMPARISON: None. Reason for the study: suspected Right kidney stone FINDINGS: RIGHT KIDNEY: Size: 12.1 cm. No shadowing stones or hydronephrosis. LEFT KIDNEY: Size: 12.9 cm. No shadowing stones or hydronephrosis. BLADDER: Under distention of the urinary bladder limits its evaluation. Ureteral jets not seen. Prevoid urinary bladder volume measures 59.5 cc. Prostate gland is not well seen. Procedure Note Sherrie Ching MD - 11/06/2024 US RETROPERITONEAL COMPLETE TECHNIQUE: Complete ultrasound evaluation of the retroperitoneum was performed. COMPARISON: None. Reason for the study: suspected Right kidney stone FINDINGS: RIGHT KIDNEY: Size: 12.1 cm. No shadowing stones or hydronephrosis. LEFT KIDNEY: Size: 12.9 cm. No shadowing stones or hydronephrosis. BLADDER: Under distention of the urinary bladder limits its evaluation.Ureteral jets not seen. Prevoid urinary bladder volume measures 59.5 cc. Prostate gland is not well seen. IMPRESSION: No shadowing renal stones identified. -------- FINAL REPORT -------- Dictated By: Sherrie Ching Dictated Date: 11/06/2024 13:34 ET Assigned Physician: Sherrie Ching Reviewed and Electronically Signed By: Sherrie Ching Signed Date: 11/06/2024 13:37 ET Workstation ID: [id number] Transcribed By: Self Edit Transcribed Date: 11/06/2024 13:34 ET us Roby Romero MD IMG US PROCEDURE S Final Result * (ABNORMAL) TRANSTHORACIC ECHOCARDIOGRAM (TTE) COMPLETE (10/17/2024 8:45 AM EDT) Left Atrium Minor [place] 5.6 cm CV PACS Left Atrium Major [place] 5.8 cm CV PACS LA Area Sys (A2C) 24 cm2 CV PACS LA Area Sys (A4C) 26 cm2 CV PACS LA Volume (BP) 78 mL CV PACS RA Area 23.1 cm2 CV PACS RA 2D Volume 76 mL CV PACS AV Mean Gradient 4 mmHg CV PACS Ao VTI 29.4 cm CV PACS AV Peak Gregorio 1.4 m/s CV PACS AV Peak Gradient 8 mmHg CV PACS AV Area Continuity Equation 2.6 cm2 CV PACS AV Area Peak Velocity 2.5 cm2 CV PACS Aortic Sinus Valsalva 3.5 cm CV PACS IVC Proximal 2.2 cm CV PACS IVSD 1.2(A) 0.6 - 1.0 cm CV PACS LVIDD 5.8 4.2 - 5.8 cm CV PACS LVIDS 4.3(A) 2.5 - 4.0 cm CV PACS LVOT Diameter 2.2 cm CV PACS LVOT Mean Gregorio 0.6 m/s CV PACS LVOT Mean Grad 2 mmHg CV PACS LVOT Peak VTI 20.3 cm CV PACS LVOT Peak Gregorio 0.9 m/s CV PACS LVOT Peak Gradient 3 mmHg CV PACS LVPWD 1.2(A) 0.6 - 1.0 cm CV PACS MV E' Tissue Velocity Lateral 11 cm/s CV PACS MV E' Tissue Velocity Septal 9 cm/s CV PACS LVOT Area 3.8 cm2 CV PACS LVOT Stroke Volume 77 mL CV PACS MV Deceleration [place] 6.9 m/s2 CV PACS E Wave Deceleration Time 145 119 - 242 ms CV PACS MV PHT 42 ms CV PACS MV Peak A Gregorio 0.50 m/s CV PACS MV Peak E Greg[place] 1.00 m/s CV PACS MV Area PHT 5.1 cm2 CV PACS PV Acceleration Time 90 ms CV PACS PV Peak Velocity 1.1 m/s CV PACS PV Peak Gradient 4 mmHg CV PACS RV Diastolic Basal Dimension 4.0 2.5 - 4.1 cm CV PACS TAPSE 25 mm CV PACS E/E' Ratio Septal 11 CV PACS E/E' Ratio Averaged 10 CV PACS LVOT Stroke Index 0 mL/m2 CV PACS Relative Wall Thickness ratio 0.39 0.24 - 0.42 CV PACS LVOT:AV VTI Index 0.69 CV PACS FS 26 % CV PACS LV Mass 2D 285(A) 96 - 200 g CV PACS LVOT flow 228 mL/s CV PACS RA 2D Volume Index 30 18 - 32 mL/m2 CV PACS SAPPHIRE Index (VTI) 1.03 cm2/m2 CV PACS SAPPHIRE Index (Pk Gregorio) 0.98 cm2/m2 CV PACS LVIDD Index 2.27 cm/m2 CV PACS LVIDS Index 1.69 cm/m2 CV PACS AV Velocity Ratio 0.67 CV PACS E/A Ratio 2.0 0.8 - 2.0 CV PACS E/E' Ratio Lateral 9 CV PACS LA Volume Index (BP) 29 mL/m2 CV PACS LV Mass Index 2D 116 50 - 102 g/m2 CV PACS BSA 2.62 m2 CV PACS Est. RA Pressure 3 mmHg CV PACS RA Major [place] 5.6 cm CV PACS RA Major [place] Index 2.2 2.1 - 2.7 cm/m2 CV PACS AV Area 2D 2.5 cm2 CV PACS SAPPHIRE Index (2D) 0.98 cm2/m2 CV PACS Inferior Vena Cava Diameter At Expiration 2.2 cm CV PACS IVC Expiration Index 0.86 cm/m2 CV PACS AV Area Index 1.0 CV PACS Anatomical Region Laterality Modality Ultrasound Narrative 11/13/2024 4:16 PM EDT Left ventricle cavity is mildly dilated. There is mild, concentric left ventricular hypertrophy. There is normal left ventricular regional wall motion. Left ventricular systolic function is in the normal range with an ejection fraction of 55-60%. Right ventricle cavity is mildly enlarged. Right ventricular systolic function is normal. There is no hemodynamically significant valve disease. There is normal left ventricular diastolic function. There is a trivial anterior pericardial effusion of no hemodynamic consequence. Left Ventricle Left ventricle cavity is mildly dilated. There is mild hypertrophy. Systolic function is normal with an ejection fraction of 55-60%. There are no regional LV wall motion abnormalities. There is no diastolic dysfunction and normal left atrial pressure. Right Ventricle Right ventricle cavity is mildly dilated. Systolic function is normal. Left Atrium Left atrium cavity size is normal. Right Atrium Right atrium cavity is normal. IVC/SVC RA pressures is estimated to be 3 mmHg (IVC diameter <21 mm and decreases >50% during inspiration). Mitral Valve The leaflets are mildly thickened. There is trace regurgitation. There is no evidence of mitral valve stenosis. Tricuspid Valve Tricuspid valve structure is normal. Tricuspid regurgitation is inadequate for estimation of right ventricular systolic pressure. There is no evidence of tricuspid valve stenosis. Cannot assess RVSP. Aortic Valve The aortic valve is trileaflet. There is no regurgitation or stenosis. Pulmonic Valve Visualized portions of the pulmonic valve appear normal. No significant pulmonic valve regurgitation. There is no evidence of pulmonic valve stenosis. Ascending Aorta The aortic root is normal in size. Ascending aorta was not well-visualized. Pericardium There is a trivial right sided pericardial effusion. Study Details Overall the study quality was adequate. us Roby Romero MD CV ECHO PROCEDUR ES Final Result * Prostate specific antigen screen (09/28/2024 2:37 PM EDT) PSA 0.76 0.00 - 4.00 ng/mL LAB CHEMISTRY METHOD 09/28/2024 4:57 PM EDT [facility] Blood Venous blood specimen / Unknown Venipuncture / Unknown 09/28/2024 2:37 PM EDT 09/28/2024 2:37 PM EDT Narrative [facility] - 09/28/2024 4:57 PM EDT The Siemens [employer] Chemiluminescent Immunoassay is used. Results obtained with different assay methods or kits cannot be used interchangeably. Results cannot be interpreted as absolute evidence of the presence or absence of malignant disease. us Roby Romero MD LAB BLOOD ORDERA BLES Final Result [facility] [address] [place] [address], [place] [phone] * (ABNORMAL) Hemoglobin A1c (09/28/2024 2:37 PM EDT) Hemoglobin A1C 10.0(H) <6.5 % LAB CHEMISTRY METHOD 09/28/2024 11:07 PM EDT [facility] Mean Bld Glu Estim. 240 mg/dL LAB CHEMISTRY METHOD 09/28/2024 11:07 PM EDT [facility] Blood Venous blood specimen / Unknown Venipuncture / Unknown 09/28/2024 2:37 PM EDT 09/28/2024 2:37 PM EDT us Oyipamela Romero MD LAB BLOOD ORDERA BLES Final Result [facility] [address] [place] [address], * XR Fingers 2+ Views Right (09/28/2024 2:21 PM EDT) Anatomical Region Laterality Modality Upper Extremities, Fingers Right Radio graphic Imaging 09/28/2024 5:44 PM EDT Impressions 09/28/2024 5:52 PM EDT No acute fracture or dislocation. The right middle finger is within normal limits -------- FINAL REPORT -------- Dictated By: Ave Kline Dictated Date: 09/28/2024 17:44 ET Assigned Physician: Ave Kline Reviewed and Electronically Signed By: Ave Kline Signed Date: 09/28/2024 17:52 ET Workstation ID: [id number] Transcribed By: Self Edit Transcribed Date: 09/28/2024 17:44 ET Narrative 09/28/2024 5:52 PM EDT EXAMINATION: XR FINGERS 2+ VIEWS RIGHT 09/28/2024 2:11 PM Patient : 1955 CLINICAL DATA/INDICATIONS: right middle finger paronychia COMPARISON: None FINDINGS: 3 views of the right 3rd digit demonstrates no acute fracture or dislocation. The articular surfaces are grossly intact. No aggressive osseous destruction. Mild soft tissue swelling. Procedure Note Ave Kline [...] Signed Date: 09/28/2024 17:52 ET Workstation ID: [id number] Transcribed By: Self Edit Transcribed Date: 09/28/2024 [...] Signed Date: 09/12/2024 13:15 ET Workstation ID: [id number] Transcribed By: Self Edit Transcribed Date: 09/12/2024 13:04 ET Narrative 09/12/2024 1:15 PM EDT EXAMINATION: CT CHEST WITHOUT CONTRAST LUNG CANCER SCREENING, LOW DOSE CLINICAL INFORMATION: Lung cancer screening. Former smoker COMPARISON: Initial CT TECHNIQUE: Multidetector CT. Examination of the chest. Examination of the chest without IV contrast. Reformatting in the coronal and sagittal planes. Device: [employer] VCT DLP: 189 mGy-cm CTDI: 4.83 Dose optimization was performed including the use of low-dose iterative reconstruction technique with automatic exposure control based on patient size. Type of contrast: None Volume of IV contrast: None Volume of contrast discarded: 0 mL FINDINGS: LUNG: No abnormality of the trachea or mainstem bronchi. No focal pneumonia. LUNG NODULES: There are no suspicious nodules [...] fluid or thickening anteriorly without mass effect. There are marked coronary calcifications. VASCULAR: There is no thoracic aortic aneurysm. The main pulmonary artery is normal caliber PLEURA: There is no pleural fluid or pneumothorax AXILLA/CHEST WALL: There are no enlarged axillary lymph nodes. No chest wall mass demonstrated VISUALIZED UPPER ABDOMEN: No suspicious abnormality on limited assessment of the visualized upper abdomen1. Nonspecific subcutaneous stranding in the upper abdomen on each side. MUSCULOSKELETAL: No suspicious focal bony lesion demonstrated. Extensive degenerative changes in the spine and both shoulders. Procedure Note Chauncey Celis MD - 09/12/2024 EXAMINATION: CT CHEST WITHOUT CONTRAST LUNG CANCER SCREENING, LOW DOSE CLINICAL INFORMATION: Lung cancer screening. Former smoker COMPARISON: Initial CT TECHNIQUE: Multidetector CT. Examination of the chest. Examination of the chest without IV contrast. Reformatting in the coronal and sagittal planes. Device: [employer] VCT DLP: 189 mGy-cm CTDI: 4.83 Dose [...] Signed Date: 09/12/2024 13:15 ET Workstation ID: [id number] Transcribed By: Self Edit Transcribed Date: 09/12/2024 13:04 ET Adalberto Bliss MD [facility] CT PROCEDURES Final Result * US Abdomen Aortic Aneurysm Screening (07/04/2024 8:59 AM EST) Anatomical Region Laterality Modality Abdominal aorta Ultrasound 07/04/2024 2:40 PM EST Impressions 07/04/2024 2:41 PM EST No evidence of abdominal aortic aneurysm -------- FINAL REPORT -------- Dictated By: Ave Kline Dictated Date: 07/04/2024 14:40 ET Assigned Physician: Ave Kline Reviewed and Electronically Signed By: Ave Klien Signed Date: 07/04/2024 14:41 ET Workstation ID: [id number] Transcribed By: Self Edit Transcribed Date: 07/04/2024 [...] Signed Date: 07/04/2024 14:41 ET Workstation ID: [id number] Transcribed By: Self Edit Transcribed Date: 07/04/2024 14:40 ET Roby Romero MD [facility] US PROCEDURE S Final Result * (ABNORMAL) Lipid panel (03/29/2024) LDL/HDL Ratio 3 0 - 4 Triglycerides 176(A) 0 - 150 mg/dL Cholesterol 107 0 - 200 mg/dL HDL 41 >=40 mg/dL LDL Cholesterol 31 0 - 100 mg/dL Blood Venous blood specimen / Unknown Result [facility] Provider LAB BLOOD ORDERABLES Belinda l Result * Diabetes Eye Exam (12/03/2023) [facility] Diabetes: Annual Retina Eye Exam abstracted Result [facility] Provider HEALTH MAINTENANCE Final Result * Urine Albumin Creatinine Ratio (11/26/2023) [facility] Urine Albumin Creatinine Ratio abstracted Result [facility] Provider HEALTH MAINTENANCE Final Result * Colonoscopy (11/01/2023) [facility] Colonoscopy no intepretation, abstracted Anatomical Region Laterality Modality Other Result [facility] Provider HEALTH MAINTENANCE Final Result * Diabetes Foot Exam (08/13/2023) [facility] Diabetes: Annual Foot Exam abstracted [facility] Provider HEALTH MAINTENANCE Final Result * Hepatitis C Screening (07/21/2022) [facility] Hepatitis C Screening abstracted [facility] Provider HEALTH MAINTENANCE Final Result from Last 3 Months or Most Recently Relevant to Health Maintenance Insurance MEDICARE [facility] Care Teams Superintendent Stations Relationship Specialty Start Date End Date Roby Romero MD [address], [place] PCP - General Internal Medicine 02/02/22
--- OUTSIDE RECORDS SUMMARY | 2024-12-26 09:40 | XMS_ITS | Encounter Summary ---
Author Organization [facility] Address [address] [place] [address] Care Team Providers Care All Source Intelligence Analyst Name Role Phone Debby Wiggins MD Primary Care Provider [phone] Encounter Details Date Type Department Care Team (Late st Contact Info) Description 12/06/2024 myChart Message [facility] [address] [place] [id number] Vineyardist: Janet Benoit LPN insulin Social History Tobacco Use Types Packs/Day Years [...] Diagnoses Not on filedocumented in this encounter Care Teams All Source Intelligence Analyst Relationship Specialty Start Date End Date Debby Wiggins MD [address] [place] [address] [place] [address] PCP - General 06/07/23 documented as of this encounter
--- OUTSIDE RECORDS SUMMARY | 2024-12-26 09:40 | XMS_ITS | Patient Health Record ---
[facility] Address [address] [facility] [place] [address] Care Team Providers Care Apple Turner Name Role Phone John Shaikh MD Primary Care Provider Bonny Gay Unavailable [phone] Allergies Allergen (clinical drug ingredient) Drug/Non Drug Allergy documented on EMR Reaction Allergy Type Onset Date Status meperidine Demerol vomiting Drug Allergy Active Reason For Referral No Information Medications Medication SIG (Take, Route, Frequency, Duration) Notes Start Date End Date Status Albuterol Sulfate HFA 108 (90 Base) MCG/ACT INHALE 2 PUFFS BY MOUTH EVERY 6 HOURS NEEDED Inhalation; Duration: 25 Active Aspirin 81 MG as directed Orally Active Custom Orthotics as directed Diagnosi s Pes planus B/L feet 12/09/2021 Active metFORMIN HCl ER 500 MG Oral; Duration: 90 Active Furosemide 40 MG Oral; Duration: 90 Active Farxiga 10 MG 1 tablet Orally Once a day Active B12 Active Trulicity 3 MG/0.5ML INJECT 1 PEN SUBCUT ANEOUSLY ONCE WEEKLY. Subcutaneous Active Tresiba FlexTouch 200 UNIT/ML INJECT 70 UNITS DIRECTED SUBCUTANEOUS TWICE DAILY Subcutaneous; Duration: 29 Activ e Rosuvastatin Calcium 40 MG TAKE 1 TABLET BY MOUTH EVERY DAY Oral; Duration: 90 Active Diclofenac Sodium 3 % 1 application Exte rnally Twice a day as needed; Duration: 90 days 05/11/2022 Active NovoLOG FlexPen 100 UNIT/ML INJECT 80 UNITS SUBCUTANOUSLY 3 TIMES A DAY BEFORE MEALS Subcutaneous; Duration: 90 Active Social History Tobacco Use: Social [...] Problem Status W/U Status Risk Notes Problem Neuropathy (917143761) Neuropathy (G62.9) Active confirmed Problem Type 2 diabetes mellitus with polyneuropathy (E11.42) Active confirmed Plan Of Treatment No Information Insurance Providers Payer Name Payer Address Payer Phone Subscriber Number Group Number Insured Name Patient Relationship to Insured Coverage Start Date Coverage End Date [employer] Claims [address] [id number] [place] [id number] Nate Perkins Self - patient is the [...]
== END 2024-12-26 09:46 | disposition home or self-care (01) ==
LOC: HO.HUSH 09:09
PROVIDERS: PCP Family Medicine; Visit Provider Urology
DX: R39.12 Poor urinary stream (principal); R39.15 Urgency of urination; Z13.9 Encounter for screening, unspecified
CPT/HCPCS: 99203

== ENCOUNTER → 2024-12-26 09:09 | Outpatient (BNVA) | payer MEDICARE, OTHER, SELFPAY | PROVIDERS: PCP Family Medicine; Visit Provider Urology | DX: R35.1 Nocturia (principal); N50.819 Testicular pain, unspecified; R39.12 Poor urinary stream; R39.15 Urgency of urination; E11.65 Type 2 diabetes mellitus with hyperglycemia; E11.69 Type 2 diabetes mellitus with other specified complication; N52.01 Erectile dysfunction due to arterial insufficiency; Z79.4 Long term (current) use of insulin; Z79.85 Long-term (current) use of injectable non-insulin antidiabetic drugs; Z79.82 Long term (current) use of aspirin; Z79.899 Other long term (current) drug therapy | CPT/HCPCS: 51798; 81003; 99202 ==

== ENCOUNTER 2025-03-29 09:35 | Outpatient (AMB) | payer MEDICARE, OTHER, SELFPAY ==
--- NOTE | 2025-03-29 09:35 | A.OFFVIS_ITS ---
Intake Visit Reasons: 3m follow up Intake Note: Patient is present for 3 mo follow up for weak stream Urology Rx:Tamsulosin,Tadalafil Blood Thinners: asprin Imaging completed: none PVR :196 ml's Program/Music Director Required: No Accompanied by: Self / Same As Patient Allergies metformin Adverse Reaction (Severe, Verified 03/29/25 09:36) Diarrhea atorvastatin Adverse Reaction (Unknown, Verified 03/29/25 09:36) uknown canagliflozin Adverse Reaction (Unknown, Verified 03/29/25:36) Unknown dapagliflozin Adverse Reaction (Unknown, Verified 03/29/25 09:36) unknown meperidine (From Demerol) Adverse Reaction (Unknown, Verified 03/29/25 09:36) Unknown pioglitazone Adverse Reaction (Unknown, Verified 03/29/25:36) Unknown Seasonal Allergies Adverse Reaction (Unknown, Verified 03/29/25 09:36) Unknown spironolactone Adverse Reaction (Unknown, Verified 03/29/25 09:36) Unknown topiramate Adverse Reaction (Unknown, Verified 03/29/25 09:36) Unknown HPI Comments Details: Nate is a pleasant male. He is a patient of . He is seen for the following urologic conditions - lower urinary tract symptoms - testicular pain - erectile dysfunction in setting of diabetes Higher PVR today Persistent weak stream Trial tamsulosin 0.8 mg daily Minimal response to tadalafil Check testosterone labs Lower urinary tract symptoms Poorly controlled diabetes on Trulicity, insulin UA 3+ Flomax Erectile dysfunction in setting of diabetes Prior trial on demand sildenafil Add daily tadalafil for bladder control PFSH Medical History (Updated 03/29/25 @ 10:19 by Rachid Barton MD) Peripheral vascular disease Uncontrolled type 2 diabetes mellitus with hyperglycemia, with long-term current use of insulin Uncontrolled type 2 diabetes circulatory disorder erectile dysfunction Surgical History History of cosmetic plastic surgery History of facial surgery Hx of knee surgery Hx of shoulder surgery Hx of cholecystectomy Hx of foot surgery Family History Father Diabetes mellitus, type II Mother Dementia Social History Household Members: Spouse Household Members Other:: Alcohol intake: current Alcohol intake frequency: holidays/special occasions only Patient Tobacco Use Status: Former Tobacco user Substance Use Type: Marijuana Review of Systems Const Denies chills and Denies fever(s) Card Reports no additional complaints and Denies syncope Resp Denies cough GI Denies abdominal pain and Denies heartburn Reports as per HPI and Denies change in libido Neuro Denies syncope Psych Denies change in libido Endo Denies change in libido Physical Exam Const General: cooperative, healthy appearing, comfortable and no acute distress Orientation/consciousness: patient oriented x3 HEENT Face and sinus: Yes normal facial exam Mouth: moist mucous membranes Neck Neck: Yes normal visual inspection, Yes full ROM and Yes trachea midline Chest Chest palpation & inspection: normal inspection of the chest Resp Effort & Inspection: normal respiratory effort, able to speak in complete sentences and no respiratory distress GI Inspection: Yes normal to inspection Back/Spine/Pelvis Cervical Spine: normal cervical lordosis Thoracic/Lumbar Spine: thoracic and lumbar spine normal to inspection Skin General skin exam: no rashes or lesions noted Neuro General: patient oriented x3, gait normal, tone normal and moves all extremities Extrem General: Yes normal to inspection and Yes capillary refill normal Assessment & Plan Assessment & Plan (1) Erectile dysfunction associated with type 2 diabetes mellitus: Code(s): - Type 2 diabetes mellitus with other specified complication; N52.1 - Erectile dysfunction due to diseases classified elsewhere Category: Medical Plan Plan check cystoscopy Testosterone lab Orders: Orders Liver Panel Today . - Type 2 diabetes mellitus with other specified complication, E29.1 - Testicular hypofunction, N52.1 - Erectile dysfunction due to diseases classified elsewhere Testosterone, Free/Total Today - Type 2 diabetes mellitus with other specified complication, N52.1 - Erectile dysfunction due to diseases classified elsewhere Lutenizing Hormone Today . - Type 2 diabetes mellitus with other specified complication, N52.1 - Erectile dysfunction due to diseases classified elsewhere Medications: Changed From tamsulosin (Flomax) 0.4 mg PO DAILY 14 caps 0RF - Type 2 diabetes mellitus with other specified complication, N52.1 - Erectile dysfunction due to diseases classified elsewhere To tamsulosin (Flomax) 0.8 mg (2 x 0.4 mg) PO DAILY 60 caps 1RF 30 days - Type 2 diabetes mellitus with other specified complication, N52.1 - Erectile dysfunction due to diseases classified elsewhere Patient Instructions: This note is constructed using voice recognition software. While every effort has been made to ensure accuracy steaming cabinet tender errors may have been included. Imaging studies, laboratory and physical exam results were discussed and reviewed in detail. No major barriers to patient understanding were identified. An opportunity to ask questions regarding the treatment plan was provided. All questions were answered. The patient expressed understanding and agreement with the above treatment plan. The patient is aware they should contact our office by phone for worsening of their current condition or the appearance of new urologic symptoms. Compliance i s encouraged with any medications and followup testing that is ordered. It is a privilege to participate in the urologic care of your patient. If you have any questions or concerns regarding treatment for the above conditions, or other urologic issues, please do not hesitate to contact me. The office telephone contact is [phone]. Sincerely, Dr Rachid Barton MD, [facility] - Urology Compassionate Specialist Care for the Genitourinary System Coding Level of Care Code Est Pt Level 4 (51998) Diagnoses Erectile dysfunction associated with type 2 diabetes mellitus E11.69; N52.1
--- OUTSIDE RECORDS SUMMARY | 2025-03-29 10:37 | XMS_ITS | Encounter Summary ---
Author Organization [facility] Address [address] [place] [address] Phone Care Team Providers Care Vegetable Handler Name Role Phone Roby Romero MD Primary Care Pr ovider Encounter Details Date Type Department Care Team (Late st Contact Info) Description 09/30/2023 Procedure Pass [facility] [place] PERIOPERATIVE DEPT [address] [place] [phone] Social History Tobacco Use Types Packs/Day Years Used Date Smoking Tobacco: Former Cigarettes 1 51 0 06/28/1971 - 06/28/2022 Cigars Smokeless Tobacco: Never Alcohol Use Standard Drinks/Week Comments Not Currently 0 (1 standard drink = 0.6 oz pur e alcohol) Education Answer Date Recorded Are you interested in more education? Not on suzette e 10/23/2022 Are you concerned about learning? Not on file 10/23/2022 No 10/23/2022 No 10/23/2022 Digital Access Answer Date Recorded No 11/18/2022 No 11/18/2022 Reliable internet access at home? Not on file 11/18/2022 Device with a working camera? Not on file Sex and Gender Information Value Date Recorded Sex Assigned at Male 05/18/2023 12:50 PM EST Legal Sex Male 11:51 AM EST Gender Identity Male 05/18/2023 12:50 PM EST Sexual Orientation Straight 05/18/2023 12 :50 PM EST documented as of this encounter Plan of Treatment Upcoming Encounters Date Type Department Care Team (Late st Contact Info) Description 04/13/2025 8:40 AM EDT Office Visit [facility] [address] [place] [address] Ana Dukes MD [address] [place] [phone] jose 07/06/2025 9:40 AM EST Office Visit [facility] [address] [place] [address] Bridgette Arreola PA-C [address] [place] [address] 10/10/2025 10:20 AM EDT Office Visit [facility] [address] [place] [address] Ana Dukes MD [address] [place] [id number] jose 09/23/2026 9:00 AM EDT [facility] Visit [facility] [address] [address] Lis [address] [place] [address], [address] [place] [address] [email or web address] documented as of this encounter Visit Diagnoses Not on filedocumented in this encounter Care Teams Vegetable Handler Relationship Specialty Start Date End Date Roby Romero MD [address] [place] [address] PCP - General Family Medicine 05/14/22 documented as of this encounter Additional Source Comments The information contained in this document represents components of the legal health record. It is not the complete legal health record.[facility]
--- OUTSIDE RECORDS SUMMARY | 2025-03-29 10:37 | XMS_ITS | Clinical Summary ---
Author Organization [facility] Address [address] [place] [phone] Phone Care Team Providers Care Traffic Assistant Name Role Phone Roby Romero MD Primary Care Pr ovider Allergies Active Allergy Reactions Criticality Noted Date Comments Atorvastatin 10/21/2021 Atropine-Demerol Nausea and/or Vomiting 999 Canagliflozin 10/21/2021 Dapagliflozin 10/21/2021 dizzy dizzy dizzy Duloxetine 10/21/2021 numbness Meperidine Nausea And Vomiting,Nausea and/or Vomiting 07/09/2021 Metformin Diarrhea 08/20/2023 Pioglitazone 10/21/2021 edema edema edema Spironolactone 10/21/2021 breast sensuitive breast sensuitive breast sensuitive Topiramate 10/21/2021 fuzzy fuzzy fuzzy Medications albuterol 90 mcg/actuation inhaler Inhale 2 puffs into the lungs every 6 (six) hours as needed. 12/02/19 22 Active losartan (COZAAR) 50 MG tablet Take 50 mg by mouth. Active rosuvastatin (CRESTOR) 40 MG tablet 08/04/19 23 Active acetaminophen (TYLENOL) 500 MG tablet Take 2 tablets (1,000 mg total) by mouth every 8 (eight) hours. Do not take more than 4000mg in a 24 hour period. 09/30/19 24 Active dulaglutide (TRULICITY) 4.5 mg/0.5 mL subcutaneous injection Inject 0.5 mL (4.5 mg total) under the skin every 7 days. 6 mL 1 08/21/19 Active OMNIPOD 5 G6-G7 PODS, GEN 5, CrtgIndications: Type 2 diabetes mellitus with peripheral neuropathy Inject 1 each under the skin every other day. 45 each 3 11/02/19 Active Additional Information Patient not taking.Reported on 01/02/2025 sildenafiL (VIAGRA) 100 mg tablet Take 100 mg by mouth as needed. 11/07/19 Active DEXCOM G7 SENSOR DeviIndications: Type 2 diabetes mellitus with peripheral neuropathy 1 each by Miscellaneous route Every 10 Days. 9 each 3 01/03/20 Active insulin regular U-500 CONC (HUMULIN R, KWIKPEN) 500 unit/mL (3 mL) subcutaneous injection pen 200-240 units subcutaneously in the morning, 200-240 units in the evening, or as directed 01/03/20 Active Active Problems Problem Noted Date Diagnosed Date Acute right-sided low back pain with right-sided sciatica 11/02/2024 Assessment & Plan (11/02/2024 9:24 AM EDT): Discussed that if the pain doesn't improve he needs to go to the ER to have his lower back looked at to ensure there are no nerves being pinched. Mild depression 06/30/2024 Obstructive sleep apnea syndrome 02/16/2023 02/16/2023 Overview (02/16/2023): epworth [id number] pewr studyCPAP 8cmAHI 20..6 refer CPAPrefer polysomnogram Steatosis of liver 02/16/2023 02/16/2023 Overview (02/16/2023): workup Stasis dermatitis of both legs 10/19/2022 Hypertension 09/11/2022 Hyperlipidemia 09/11/2022 Type 2 diabetes mellitus with peripheral neuropa thy 09/11/2022 Assessment & Plan (01/04/2025 4:08 PM EDT): Control is improving based upon the patient's dexcom G6 sensor download. No frequent or severe hypoglycemia. He wants to up grade his sensor from the G6 to the G7. Will send the prescription to the pharmacy so he can get this before his current sensor expires. He has had to increase his insulin use with the pain he has been in as this has caused his glucose levels to spike. Will send a new shazia care form to accommodate the higher insulin use. Continue to work on eating healthy and trying to be active. To call or message with any issues managing his glucose levels. Up to date with opho. Labs ordered Assessment & Plan (11/02/2024 9:18 AM EDT): Control is poor based upon the patient's dexcom G6 clarity review. No frequent or severe hypoglycemia. Up until about 2 weeks ago his glucose levels were running very high and requiring almost 500 to 550 units of insulin daily to try and control his levels. He is not sure what changed but he has been able to take about 250 units of insulin daily over the last 2 weeks. His glucose levels have seemed to level off. Will maintain his current insulin dosing. He would like to try for an insulin pump. Will see if we can get his insurance to cover the omnipod 5 insulin pump as it does not require a c-peptide level to be covered as it is a pharmacy benefit. If the insurance covers it and it is affordable, he will reach out to the office to schedule a pump training. The use of U-500 insulin is off label use and he understands this but would like to try if can be covered. Continue to work on eating healthy and trying to be active. To call or message with any issues managing his glucose levels. Up to date with opho. Sees podiatry. Reviewed recent labs Assessment & Plan (08/03/2024 4:56 PM EST): 69 yo man with longstanding Type 2 diabetes. Control has been suboptimal. No frequent or severe hypoglycemia. Does not meet criteria for traditional pump. Apparently [facility] received authorization for omnipod, but was expensive, $800/month. He has severe peripheral neuropathy. He is unaware of any retinopathy. I do not have any recent labs (umalb/creat). Discussed role of diet, exercise, medications. Reviewed options to improve control with risks & benefits, including intensification of lifestyle & available medications. Do not think sulfonylurea likely to be of benefit. Could consider pioglitazone, but would be concerned @ worsening weight/edema. Could shift to mounjaro, but cost prohibitive & no savings program, ozempic did not seem to work as well for him. Reviewed appropriate timing of U-500 insulin in relation to meals. Could consider re-addressing cost of omnipod to see if any less expensive currently (which may be unlikely). Strongly encouraged him to work on improving diet & activity (as able). To call or send in log with problems with glucose control. Up to date with ophtho. BP under good control. Chronic obstructive pulmonary disease 04/20/2022 Kidney stone 03/24/2022 Overview (08/03/2024): neg ct urogram Sensorineural hearing loss (SNHL) of both ears 0 03/24/2022 Asthma Long-term current use of inj ectable noninsulin antidiabetic medication intermediate current use of insulin Encounters Date Type Department Care Team Description 01/08/2025 Telephone [facility] [address] [place] [address] Melissa Stovall MunaFRANCES Forms & Paperwork ([employer]) 01/02/2025 1:57 PM EDT - 01/02/2025 11:59 PM EDT Hospital Encounter [facility] [address] [place] [address] Bridgette Arreola PA-C Discharge Disposition: Home or Self Care 01/02/2025 12:50 PM EDT Office Visit [facility] [address] [place] [address] [place] [address] Bridgette Arreola PA-C Type 2 diabetes mellitus with peripheral neuropathy (Primary Dx) from Last 3 Months Social History Tobacco Use Types Packs/Day Years Used Date Smoking Tobacco: Former Cigarettes 1 51 0 06/28/1971 - 06/28/2022 Cigars Smokeless Tobacco: Never Tobacco Cessation:Counseling Given: Not Answered Alcohol Use Standard Drinks/Week Comments Not Currently [...] with a working camera? Not on file Intimate Partner Violence Answer Date R ecorded Are you denied basic needs s uch as food, clothing, or medical care? No 05/02/2024 In the past 12 months have y ou been in a relationship with a person who hurts, threatens, or tries to control you? No 05/02/2024 Are you denied basic needs s uch as food, clothing, or medical care? No 05/02/2024 In the past 12 months have y ou been in a relationship with a person who hurts, threatens, or tries to control you? No 05/02/2024 Sex and Gender Information Value Date Recorded Sex Assigned at Male 05/18/2023 12:50 PM EST Legal Sex Male 11:51 AM EST Gender Identity Male 05/18/2023 12:50 PM EST Sexual Orientation Straight 05/18/2023 12 :50 PM EST Last Filed Vital Signs Vital Sign Reading Time Taken Comments Blood Pressure 120/74 01/02/2025 12:50 PM EDT Pulse 78 01/02/2025 12:50 PM EDT Temperature 36.4 C (97.5 F) 05/02/2024 8:08 AM EST Respiratory Rate 28 05/02/2024 8:40 AM EST Oxygen Saturation 98% 01/02/2025 12:50 PM EDT Inhaled Oxygen Concentration - - Weight 128.8 kg (284 lb) 01/02/2025 12:50 PM EDT with shoes Height 190.5 cm (6' 3 ) 01/02/2025 12:50 PM EDT Body Mass Index 35.5 01/02/2025 12:50 PM EDT Plan of Treatment Upcoming Encounters Date Type Department Care Team (Late st Contact Info) Description 04/13/2025 8:40 AM EDT Office Visit [facility] [address] [place] [id number] Ana Dukes MD [address] [place] [phone] 07/06/2025 9:40 AM EST Office Visit [facility] [address] [place] [address] Bridgette Arerola PA-C [address] [place] [address] 10/10/2025 10:20 AM EDT Office Visit [facility] [address] [place] [address] Ana Dukes MD [address] [facility] [address] [place] [address] 09/23/2026 9:00 AM EDT Office Visit [facility] [place] [facility] [address] [place] [address] [place] [address] Lis Gonzalez [address] [facility], [address] [place] [address] [email or web address] Health Maintenance Due Date Last Done Comments DEPRESSION SCREENING 1969 HEPATITIS C SCREENING 1975 COLOGUARD 2002 COLONOSCOPY 2002 COLORECTAL CANCER SCREENING 2002 FIT TEST 2002 FOBT 2002 SIGMOIDOSCOPY 2002 VIRTUAL COLONOSCOPY 2002 ZOSTER VACCINES (1 of 2) 2007 PNEUMOCOCCAL VACCINES (50+ years) (2 of 2 - PCV) 07/28/2008 07/28/2007 RSV VACCINE (1 - Risk 60-74 years 1-dose series) 2017 ABDOMINAL AORTIC ANEURYSM (AAA) SCREENING 2022 DIABETIC EYE EXAM 09/11/2022 INFLUENZA VACCINE (#1) 2025 , 04/20/2022, 04/11/2021, Additional history exists COVID-19 VACCINE ( season) 2025 04/20/2022, 10/30/2021, 04/02/2021, Additional history exists HEMOGLOBIN A1C 04/04/2025 01/02/2025, 04/0 08/2024, 06/30/2024, Additional history exists SMOKING Hx and SMOKELESS TOBACCO SCREENING 05/02/2025 05/02/2024 BLOOD PRESSURE 07/05/2025 01/02/2025 LUNG CANCER SCREENING (LDCT Only) 09/12/2025 09/12/2024 CREATININE LEVEL 01/02/2026 01/02/2025 POTASSIUM LEVEL 01/02/2026 01/02/2025 Adult Td,Tdap Booster 12/06/2030 12/06/2020 , 10/09/2009, 07/28/1999 HEPATITIS A VACCINES Aged Out 10/24/2013, 07/25/19 14 No longer eligible based on patient's age to complete this topic HIB VACCINES Aged Out No longer eligi ble based on patient's age to complete this topic MENINGOCOCCAL VACCINES (ACWY) Aged Out No longer eligible based on patient's age to complete this topic MENINGOCOCCAL VACCINES (B) Aged Out N o longer eligible based on patient's age to complete this topic Medical Devices Implanted Type Area Lieutenant General Device Identifier Shelf Expiration Date Model / Serial / Lot Tissue Graft [id number] Tendon Achilles Frozen Block Bone Length Greater Than Or Equal - [id number] Implanted:Qty: 1 on 02/23/2023 by Trell Quintero MD at [facility] Left: Knee [employer] 12/29/2027 FATB / [id number] / Tissue Graft [id number] Tendon Achilles Frozen Block Bone Length Greater Than Or Equal - [id number] Implanted:Qty: 1 on 09/30/2023 by Trell Quintero MD at [facility] Right: Knee [employer] 08/18/2028 FAT[employer] / [id number] / Freestyle Alyssa-Right Arm Hardware X 2 Right Foot Procedures Procedure Name Priority Date/Time Associated Diagnosis Comments HEMOGLOBIN A1C Routine 01/02/2025 2:08 PM EDT Type 2 diabetes mellitus with peripheral neuropathy ALANINE AMINOTRANSFERASE (ALT) Routine 01/02/2025 2:08 PM EDT Type 2 diabetes mellitus with peripheral neuropathy ASPARTATE AMINOTRANSFERASE (AST) Routine 01/02/2025 2:08 PM EDT Type 2 diabetes mellitus with peripheral neuropathy BASIC METABOLIC PANEL Routine 01/02/2025 2:08 PM EDT Type 2 diabetes mellitus with peripheral neuropathy from Last 3 Months Results * Alanine aminotransferase (ALT) (01/02/2025 2:08 PM EDT) ALT 27 0 - 40 U/L [facility] Blood 01/02/2025 2:08 PM EDT 01/02/2025 2:13 PM EDT Bridgette Arreola PA-C LAB BLOOD ORDERABL ES Final Result Performing Organization Address City/[facility]/[place] [address] * Aspartate aminotransferase (AST) (01/02/2025 2:08 PM EDT) AST 36 0 - 37 U/L [facility] Blood 01/02/2025 2:08 PM EDT 01/02/2025 2:13 PM EDT Bridgette Arreola PA-C LAB BLOOD ORDERABL ES Final Result [address] [address] * (ABNORMAL) Hemoglobin A1c (01/02/2025 2:08 PM EDT) HEMOGLOBIN A1C 9.1(H) 4.3 - 5.8 % [facility] Blood 01/02/2025 2:08 PM EDT 01/02/2025 2:13 PM EDT Bridgette DALALGilbertC LAB BLOOD ORDERABL ES Final Result Performing Organization Address City/[facility]/ZIP Co de Phone Number [address] [address] * Basic metabolic panel (01/02/2025 2:08 PM EDT) SODIUM 144 133 - 146 mmol/L [facility] CHLORIDE 108 96 - 108 mmol/L [facility] POTASSIUM 4.6 3.3 - 5.1 mmol/L [facility] CO2 25 21 - 35 mmol/L [facility] BUN 9 6 - 19 mg/dL [facility] CREATININE 0.80 0.5 - 1.5 mg/dL [facility] GLUCOSE 97 70 - 99 mg/dL [facility] CALCIUM 9.2 8.4 - 10.3 mg/dL [facility] EGFR 97 >59 mL/min/1.7 3m2 [facility] Comment:Estimated glomerular filtration rate calculated using the CKD-EPI refit equation. ANION GAP 16 10 - 20 mmol/L [facility] Blood 01/02/2025 2:08 PM EDT 01/02/2025 2:13 PM EDT us Bridgette Arreola PA-C LAB BLOOD ORDERABL ES Final Result Performing Organization Address [facility] Co de Phone Number [address] [address] from Last 3 Months Insurance MEDICARE PART A & B [facility] MEDICARE ENHANCE SUPPLEMENT MEDICARE PART A & B [facility] MEDICARE ENHANCE SUPPLEMENT MEDICARE PART A & B MEDICARE PART A & B MEDICARE PART A & B MEDICARE ENHANCE SUPPLEMENT MEDICARE PART A & B MEDICARE PART A & B [facility] MEDICARE ENHANCE SUPPLEMENT MEDICARE PART A & B MEDICARE ENHANCE SUPPLEMENT MEDICARE PART A & B MEDICARE ENHANCE SUPPLEMENT Care Teams Traffic Assistant Relationship Specialty Start Date End Date Roby Romero MD [address] [place] [address] PCP - General Family Medicine 05/14/22 Additional Source Comments The information contained in this document represents components of the legal health record. It is not the complete legal health record.[facility]
--- OUTSIDE RECORDS SUMMARY | 2025-03-29 10:37 | XMS_ITS | Clinical Summary ---
Author Organization [facility] Address [address] [place] [address] Care Team Providers Care Bias Machine Operator Name Role Phone Debby Wiggins MD Primary Care Provider + [phone] Medications aspirin 81 mg EC tablet Take [...] mouth nightly. 3 Active Dexcom G6 Sensor deviceIndications :Type 2 diabetes mellitus with hyperglycemia, with long-term current use of insulin Use one sensor every 10 days 9 each 3 10/16/2024 6:43 AM EDT 4 Active Dexcom G6 Transmitter deviceIndications :Type 2 diabetes mellitus with hyperglycemia, with long-term current use of insulin 1 each every 3 months. 1 each 3 4 Active blood-glucose sensor (Dexcom G7 Sensor) deviceIndications :Type 2 diabetes mellitus with hyperglycemia, with long-term current use of insulin Change sensor every 10 days. 10 each 3 4 Active glimepiride (AMARYL) 2 mg tabletIndications :Type 2 diabetes mellitus with hyperglycemia, with long-term current use of insulin,Insulin resistance Take 1 tablet (2 mg total) by mouth every morning before breakfast. 30 tablet 3 4 Active Dexcom G7 Sensor device Change sensor every 10 days. 9 each 3 03/08/2025 4:11 AM EDT 5 Active Encounters Date Type Department Care Team Description 01/01/2025 Refill [facility] [address] [place] [address] Network Support Analyst: Elba Barone, electrical hardware engineer Type 2 diabetes mellitus with hyperglycemia, with [...] series) 2017 Hemoglobin A1C 02/11/2024 08/13/2023, 06/11/2023 Basic Metabolic Panel 06/11/2024 06/11/2023 Urine Microalbumin 06/11/2024 06/11/2023 Alcohol/Substance Use Screening 06/28/2024 Depression Screening and Follow-Up 06/28/2024 Health Care Proxy Review 06/28/2024 Social Drivers of Health Keke ual Screening 06/28/2024 COVID-19 Vaccine (6 - 2024-2 6 season) 2025 04/20/2022, 10/30/2021, 04/02/2021, Additional history exists Influenza Vaccine (#1) 2025 , 04/20/2022, 04/11/2021, Additional history exists DTaP,Tdap,and Td Vaccines (3 - Td or Tdap) 12/06/2030 12/06/2020, 10/09/2009, 07/28/1999 Procedures * Due to [place] [employer] law, this organization might not be sharing [...] Health Maintenance Results * Due to [place] [employer] law, this organization might not be sharing negative HIV tests. * (ABNORMAL) Hemoglobin A1c, Outside Lab (08/13/2023) Hemoglobin A1C 8.9(H) % Blood Structure of peripheral vein / Unknown 08/13/2023 us Unknown Provider MD LAB BLOOD ORDERABLES Final R esult * (ABNORMAL) Microalbumin, Random Urine with Creatinine (06/11/2023 12:21 PM EST) Pathologist [facility] Microalbumin, Urine 5.8 mg/dL 06/11/2023 1:43 PM EST [facility] Creatinine, Urine 107 22 - 328 mg/dL 06/11/2023 1:43 PM EST [facility] Microalb/Creat Ratio, Random Urine 54.2(H) <30.0 mcg/mgCr 06/11/2023 1:43 PM EST [facility] Comment: Microalbumin Reference Range: Normal <30 mcg/mg Creatinine Microalbuminuria 30-300 mcg/mg Creatinine Clinical Albuminuria >300 mcg/mg Creatinine Reference: ADA Guideline. Diabetes Care. 2004;27 (suppl 1) Urine Voided urine specimen / Unknown Non-Blood Collection / Unknown 06/11/2023 12:21 PM EST 06/11/2023 12:57 PM EST us Jennifer Menjivar MD LAB URINE ORDERABLES Final R esult [email or web address] [address] [place] [address], [place] * (ABNORMAL) Comprehensive Metabolic Panel (06/11/2023 12:21 PM EST) Pathologist [facility] NA 141 135 - 145 mmol/L 06/11/2023 1:43 PM EST [facility] K 4.6 3.5 - 5.3 mmol/L 06/11/2023 1:43 PM EST [facility] Cl 106 97 - 110 mmol/L 06/11/2023 1:43 PM EST [facility] CO2 27 24 - 32 mmol/L 06/11/2023 1:43 PM EST [facility] Anion Gap 8 5 - 15 06/11/2023 1:43 PM EST [facility] Glucose 186(H) 70 - 99 mg/dL 06/11/2023 1:43 PM EST [facility] Creatinine 0.95 0.60 - 1.30 mg/dL 06/11/2023 1:43 PM EST [facility] Calcium 9.3 8.7 - 10.7 mg/dL 06/11/2023 1:43 PM EST [facility] Total Protein 6.8 6.0 - 8.0 g/dL 06/11/2023 1:43 PM EST [facility] Albumin 4.2 3.5 - 4.8 g/dL 06/11/2023 1:43 PM EST [facility] Bilirubin, Total 0.9 0.3 - 1.2 mg/dL 06/11/2023 1:43 PM EST [facility] Alkaline Phosphatase 67 30 - 115 U/L 06/11/2023 1:43 PM EST [facility] AST 20 10 - 40 U/L 06/11/2023 1:43 PM EST [facility] ALT 28 10 - 40 U/L 06/11/2023 1:43 PM EST [facility] BUN 18 7 - 23 mg/dL 06/11/2023 1:43 PM EST [facility] eGFR 89 >=60 mL/min/1. 73m2 06/11/2023 1:43 PM EST [facility] Comment:The estimated [...] MD LAB BLOOD ORDERABLES Final R esult [email or web address] [address] [place] [address], from Last 3 Months or Most Recently Relevant to Health Maintenance Insurance MEDICARE [facility] Care Teams Bias Machine Operator Relationship Specialty Start Date End Date Debby Wiggins MD [address] [place] [address] 3rd [place] [address] [place] [address] PCP - General 06/07/23
--- OUTSIDE RECORDS SUMMARY | 2025-03-29 10:37 | XMS_ITS ---
Author Name [facility] Care Team Organization Name Specialty Phone Email Start Date End Da te [facility] ACO 02/14/2025 [facility] MAHESH MOSLEY Primary Care sincere [email or web address] 03/04/2023 4
--- OUTSIDE RECORDS SUMMARY | 2025-03-29 10:37 | XMS_ITS | Clinical Summary ---
Author Organization [facility] [address] [place] [address] Address [address] [facility] FRANCES Urbano [address] Phone Care Team Providers Care Email Marketing Specialist Name Role Phone Roby Romero MD Primary [...] MASK,TUBING,BELINDA TERS,HEADGEAR, CHIN STRAP AND WATER CHAMBER [phone], 06/04/17 7:50:32, Compound 06/04/20 17 Active dulaglutide (Trulicity) 4.5 mg/0.5 mL pen injector injectionIndications :Type 2 diabetes mellitus with microalbuminuria ([facility] V24, [facility] V28) Inject 0.5 mL (4.5 mg total) under the skin every 7 (seven) days. 06/30/19 25 Active albuterol HFA (PROAIR HFA ; PROVENTIL HFA ; VENTOLIN HFA) 90 mcg/actuation inhalerIndications:C hronic obstructive pulmonary disease, unspecified COPD type ([facility] V24, [facility] V28) INHALE 2 INHALATIONS BY MOUTH EVERY 4 HOURS IF NEEDED FOR WHEEZING 51 g 3 09/07/19 25 Active triamcinolone (KENALOG) 0.5 % ointment Apply topically 2 (two) times a day. Apply small amounts to affected area every 12 hours. Do not use for more than 14 days at a time 30 g 09/29/19 25 Active sildenafiL (VIAGRA) 100 mg tabletIndications:Er ectile dysfunction, unspecified erectile dysfunction type Take 1 tablet (100 mg total) by mouth if needed for erectile dysfunction. Take one tablet 30 mins to an hour prior to sexual activity 90 tablet 11/07/19 25 Active diclofenac (VOLTAREN) 75 mg EC tablet Take 1 tablet (75 mg total) by mouth 2 (two) times a day if needed (pain). Do not crush, chew, or split. 60 tablet 1 12/08/19 25 Active Perforomist 20 mcg/2 mL nebulizer solutionIndications: Chronic obstructive pulmonary disease, unspecified COPD type ([facility] V24, [facility] V28) USE 1 VIAL IN NEBULIZER TWICE DAILY - Morning and Evening 60 each 12/20/19 25 Active budesonide (PULMICORT) 0.5 mg/2 mL nebulizer solutionIndications: Chronic obstructive pulmonary disease, unspecified COPD type ([facility] V24, [facility] V28) USE 1 VIAL IN NEBULIZER TWICE DAILY - Rinse Mouth After Use. Wash Face Too If Mask Used 60 each 12/20/19 25 Active losartan (COZAAR) 50 mg tabletIndications:Es sential (primary) hypertension Take 1 tablet (50 mg total) by mouth 1 (one) time each day. 90 each 1 02/09/20 25 026 Active rosuvastatin (CRESTOR) 40 mg tabletIndications:Mi xed hyperlipidemia Take 1 tablet (40 mg total) by mouth at bedtime. at bedtime. 90 each 1 02/09/20 25 026 Active Active Problems Problem Noted Date Diagnosed Date Coronary artery calcification 11/13/2024 Primary osteoarthritis of right hip 11/07/2024 Femoroacetabular impingement of right hip 2024 Asthma 08/30/2024 Cataract 08/30/2024 Chondromalacia of patella 08/30/2024 Overview (08/30/2024): nEOS Background diabetic retinopathy ([facility] V24, CM S/[facility] V28) 06/30/2024 Assessment & Plan (06/30/2024 [...] EST): Continue follow up with orthopedics at [facility]-Dr. Quintero . He is s/p Right knee, [...] 1; average oxygen saturation 91% (lowest 87%); [facility] Polysomnogram: Date ; Wt 270#; [...] asso ciated with type 2 diabetes mellitus ([facility] V24, [facility] V28) 02/05/2022 Assessment & Plan (06/30/2024 [...] Type 2 diabetes mellitus wit h microalbuminuria (CMS/[facility] V24, [facility] V28) 11/20/2021 Assessment & Plan (09/28/2024 2:17 PM EDT): Still poorly controlled. Continue follow-up with Dr. Dukes. Continue Trulicity 4.5 mg weekly and insulin regular U-500 200 units twice daily Orders: Hemoglobin A1c; Future Assessment & Plan (06/30/2024 6:29 PM EST): Continue Humulin U500 based on glucose readings Continue Trulicty 4.5mg weekly(he has supply to last till Jul directly from [employer] He has reestablished care with [facility] [employer] [employer]-Dr. Waters but states that he will still [...] Encounters Date Type Department Care Team Description 01/16/2025 Telephone Pulmonology - [place] [address] [place] [address] Juhi Snow NP from Last 3 Months Immunizations Immunization Administration Dates Next Due H1N1 Inj Preservative Free 06/18/2009 Hepatitis A Adult (Havrix; V aqta) 19yo and older 10/24/2013,07/25/2013 Hepatitis B (Iycfyyf-H-Lgybr , Recombivax HB-Adult) 19yo and older 10/24/2013,07/25/2013 [...] apnea : On CPA P Obesity Seizures ([facility] V24, [facility] V28) Type 2 diabetes mellitus wit h microalbuminuria ([facility] V24, [facility] V28) 11/20/2021 Family History Medical History Relation Name Comments Coronary artery disease Brother Dain PA i n his mid 50s Coronary artery disease Father PA w ith stent and CABG in 60s [...] care for your loved ones. For example, children counselor or elderly care for an older adult? [...] Date Recorded What is your living situation? Unrecognized valu e 06/27/2024 Sex and Gender Information Value Date Recorded [...] 9:45 AM EDT Office Visit Adult Medicine [facility] [address] [place] [address] Roby Romero MD [address] [place] [address] 04/30/2025 9:45 AM EST Office Visit Pulmonology [facility] [address] [place] [phone] Juhi Snow, MIRIAM [address] [place] [phone] 08/23/2025 11:00 AM EST Office Visit [facility] Hematology Oncology [address] [place] [phone] Dick Lim MD [address] [place] [phone] Health Maintenance Due Date Last Done Comments Zoster Vaccines (1 of 2) 2007 RSV Immunization Adult Patients (1 - Risk 60-74 years 1-dose series) 2017 Diabetes: Annual Foot Exam 08/13/2024 08/13/2023 Diabetes: Annual Urine Albumin-Creatinine Ratio (uACR) 11/25/2024 11/26/2023, 06/11/2023, 06/11/2023 Diabetes: Annual Retina Eye Exam 12/02/2024 12/03/2023 COVID-19 Vaccine ( season) 2025 05/06/2024, 04/20/2022, 10/30/2021, Additional history exists Influenza Vaccine (#1) 2025 , 04/12/2023, 04/20/2022, Additional history exists Diabetes: Blood Sugar Control Test (HGBA1C) 03/30/2025 09/28/2024, 06/30/2024, 03/29/2024, Additional history exists Social Influencers of Health Screening 06/27/2025 06/27/2024 Medicare Annual Wellness Visit 06/30/2025 06/30/2024 Falls Risk Assessment 09/12/2025 09/12/2024, 025 Lung [...] Pneumococcal Vaccine: 50+ Years Completed 10/19/2022, 07/28/2007 Abdominal Aortic Aneurysm (AAA) Screen Completed 07/04/2024 Depression Screening Completed 09/11/2024 HIB Vaccines Aged Out No longer eligi [...] Procedure Name Priority Date/Time Associated Diagnosis Comments EXTERNAL CLINICAL LAB 01/02/2025 EXTERNAL CLINICAL LAB 01/02/2025 COMPREHENSIVE METABOLIC PANEL Routine 12/07/2024 9:26 AM EDT Steatosis of liver HEMOGLOBIN A1C Routine 09/28/2024 2:37 PM EDT Type 2 diabetes mellitus with microalbuminuria (CMS/HCC V24, CMS/HCC V28) CT LUNG SCREENING Routine 09/12/2024 11: 36 [...] Recently Relevant to Health Maintenance Results * External clinical lab (01/02/2025) Only the most recent of2 resultswithin the time period is included. us Provider [facility] LAB BLOOD ORDERABLES Fin al Result * (ABNORMAL) Comprehensive metabolic panel (12/07/2024 9:26 AM EDT) Sodium 138 133 - 145 mmol/L LAB CHEMISTRY METHOD 12/07/2024 1:15 PM EDT [facility] Potassium 4.2 3.5 - 5.5 mmol/L LAB CHEMISTRY METHOD 12/07/2024 1:15 PM EDT [facility] Chloride 107 96 - 110 mmol/L LAB CHEMISTRY METHOD 12/07/2024 1:15 PM [facility] CO2 26 21 - 32 mmol/L LAB CHEMISTRY METHOD 12/07/2024 1:15 PM [facility] Anion Gap 5 3 - 11 LAB CHEMISTRY METHOD 12/07/2024 1:15 PM [facility] Glucose 251(H) 70 - 100 mg/dL LAB CHEMISTRY METHOD 12/07/2024 1:15 PM [facility] BUN 15 5 - 25 mg/dL LAB CHEMISTRY METHOD 12/07/2024 1:15 PM [facility] Creatinine 1.00 0.70 - 1.30 mg/dL LAB CHEMISTRY METHOD 12/07/2024 1:15 PM [facility] eGFR 82 >=60 mL/min/1. 73m2 LAB CHEMISTRY METHOD 12/07/2024 1:15 PM [facility] Comment:Calculation based on the Chronic Kidney Disease Epidemiology Collaboration (CKD-EPI) equation refit without adjustment for race. BUN/Creatinine Ratio 15.0 LAB CHEMISTRY METHOD 12/07/2024 1:15 PM [facility] Calcium 9.0 8.5 - 10.5 mg/dL LAB CHEMISTRY METHOD 12/07/2024 1:15 PM [facility] AST (SGOT) 16 10 - 42 unit/L LAB CHEMISTRY METHOD 12/07/2024 1:15 PM [facility] ALT (SGPT) 35 10 - 60 unit/L LAB CHEMISTRY METHOD 12/07/2024 1:15 PM [facility] Alkaline Phosphatase 67 42 - 121 unit/L LAB CHEMISTRY METHOD 12/07/2024 1:15 PM [facility] Total Protein 6.5 6.0 - 8.0 g/dL LAB CHEMISTRY METHOD 12/07/2024 1:15 PM [facility] Albumin 3.9 3.2 - 5.0 g/dL LAB CHEMISTRY METHOD 12/07/2024 1:15 PM EDT [facility] Total Bilirubin 0.9 0.0 - 1.4 mg/dL LAB CHEMISTRY METHOD 12/07/2024 1:15 PM EDT [facility] Blood Venous blood specimen / Unknown Venipuncture / Unknown 12/07/2024 9:26 AM EDT 12/07/2024 9:26 AM EDT Bonny DALAL LAB BLOOD ORDERABLES Final Re sult Performing Organization Address [facility]/ZIP Co de Phone Number [facility] [address] [place] [address], [place] [phone] * (ABNORMAL) Hemoglobin A1c (09/28/2024 2:37 PM EDT) Hemoglobin A1C 10.0(H) <6.5 % LAB CHEMISTRY METHOD 09/28/2024 11:07 PM EDT [facility] Mean Bld Glu Estim. 240 mg/dL LAB CHEMISTRY METHOD 09/28/2024 11:07 PM EDT [facility] Blood Venous blood specimen / Unknown Venipuncture / Unknown 09/28/2024 2:37 PM EDT 09/28/2024 2:37 PM EDT Roby Romero MD LAB BLOOD ORDERA BLES Final Result [facility] [address] [place] [address], [place] [phone] * CT Lung Screening (09/12/2024 11:36 AM [...] Signed Date: 09/12/2024 13:15 ET Workstation ID: [id number] Transcribed By: Self Edit Transcribed Date: 09/12/2024 13:04 ET Narrative 09/12/2024 1:15 PM EDT EXAMINATION: CT CHEST WITHOUT CONTRAST LUNG CANCER SCREENING, LOW DOSE CLINICAL INFORMATION: Lung cancer screening. Former smoker COMPARISON: Initial CT TECHNIQUE: Multidetector CT. Examination of the chest. Examination of the chest without IV contrast. Reformatting in the coronal and sagittal planes. Device: [employer] VCT DLP: 189 mGy-cm CTDI: 4.83 Dose [...] in the coronal and sagittal planes. Device: [employer] VCT DLP: 189 mGy-cm CTDI: 4.83 Dose [...] associated reticular opacity in the anterolateralinferior lingula (). This has a mean diameter of less [...] Signed Date: 09/12/2024 13:15 ET Workstation ID: [id number] Transcribed By: Self Edit Transcribed Date: 09/12/2024 [...] Signed Date: 07/04/2024 14:41 ET Workstation ID: [id number] Transcribed By: Self Edit Transcribed Date: 07/04/2024 [...] Signed Date: 07/04/2024 14:41 ET Workstation ID: [id number] Transcribed By: Self Edit Transcribed Date: 07/04/2024 14:40 ET Roby Romero MD [facility] US PROCEDURE S Final Result * (ABNORMAL) Lipid panel (03/29/2024) [facility] LDL/HDL Ratio 3 0 - 4 Triglycerides 176(A) 0 - 150 mg/dL Cholesterol 107 0 - 200 mg/dL HDL 41 >=40 mg/dL LDL Cholesterol 31 0 - 100 mg/dL Blood Venous blood specimen / Unknown Result [facility] Provider LAB BLOOD ORDERABLES Belinda l Result * Diabetes Eye Exam (12/03/2023) [facility] Diabetes: Annual Retina Eye Exam abstracted Result [facility] Provider HEALTH MAINTENANCE Final Result * Urine Albumin Creatinine Ratio (11/26/2023) [facility] Urine Albumin Creatinine Ratio abstracted [facility] Provider HEALTH MAINTENANCE Final Result * Colonoscopy (11/01/2023) [facility] Colonoscopy no intepretation, abstracted Anatomical Region Laterality Modality Other Historical Provider HEALTH MAINTENANCE Final Result * Diabetes Foot Exam (08/13/2023) Diabetes: Annual Foot Exam abstracted Historical Provider HEALTH MAINTENANCE Final Result * Hepatitis C Screening (07/21/2022) Hepatitis C Screening abstracted Historical Provider HEALTH MAINTENANCE Final Result from Last 3 Months or Most Recently Relevant to Health Maintenance Insurance MEDICARE [facility] Care Teams Email Marketing Specialist Relationship Specialty Start Date End Date Roby Romero MD [address] [facility], [place] PCP - General Internal Medicine 02/02/22
--- OUTSIDE RECORDS SUMMARY | 2025-03-29 10:37 | XMS_ITS | Encounter Summary ---
Author Organization [facility] Address [address] [place] [address] Care Team Providers Care Metal Furniture Repairer Name Role Phone Roby Romero MD Primary Care Pr ovider Encounter Details Date Type Department Care Team ([facility] Contact Info) Description 09/20/2024 Nurse Triage Adult Medicine [address] [phone] Bonny Morton PA [address] [place] [address] Social History Tobacco Use Types Packs/Day Years [...] for your loved ones. For example, child monitor or elderly care for an older adult? [...] 9:45 AM EDT Office Visit Adult Medicine [address] [phone] Roby Romero MD [address] [place] [address] 04/30/2025 9:45 AM EST Office Visit Pulmonology - [place] [address] [facility] [address] [place] [phone] Juhi Snow, MIRIAM [address] [place] [phone] 08/23/2025 11:00 AM EST Office Visit [facility] Hematology Oncology [address] [place] [phone] Marga-Dick Fang MD [address] [place] [phone] documented as of this encounter Visit Diagnoses Not on filedocumented in this encounter Additional Health Concerns Assessment Noted Time PHQ-9 Depression Total Score: 11 024 9:03 PM EST documented as of this encounter Care Teams Metal Furniture Repairer Relationship Specialty Start Date End Date Roby Romero MD [address] [place], [place] PCP - General Internal Medicine 02/02/22 documented as of this encounter
--- OUTSIDE RECORDS SUMMARY | 2025-03-29 10:37 | XMS_ITS | Encounter Summary ---
Author Organization [facility] Address [address] [place] [address] Phone Care Team Providers Care Soda Dispenser Name Role Phone Roby Romero MD Primary Care Pr ovider Encounter Details Date Type Department Care Team (Late st Contact Info) Description 05/02/2024 Procedure Pass [facility] [address] [place] [address] Social History Tobacco Use Types Packs/Day Years [...] AM EDT Office Visit [facility] [address] [place] [address] Ana Dukes MD [address] [place] [address] 07/06/2025 9:40 AM EST Office Visit [facility] [address] [place] [address] Bridgette Arreola PA-C [address] [place] [address] 10/10/2025 10:20 AM EDT Office Visit [facility] [address] [place] [address] [place] [address] Ana Dukes MD [address] [place] [address] 09/23/2026 9:00 AM EDT Office Visit [facility] [address] [place] [address] [place] [address] Lis Gonzalez [address] [place] [address], [address] [place] [address] [email or web address] documented as of this encounter Visit Diagnoses Not on filedocumented in this encounter Care Teams Soda Dispenser Relationship Specialty Start Date End Date Roby Romero MD [address] [place] [address] PCP - General Family Medicine 05/14/22 documented as of this encounter Additional Source Comments The information contained in this document represents components of the legal health record. It is not the complete legal health record.[facility]
--- OUTSIDE RECORDS SUMMARY | 2025-03-29 10:37 | XMS_ITS | Encounter Summary ---
Author Organization [facility] Address [address] [place] [phone] Phone Care Team Providers Care Run Boat Operator Name Role Phone Roby Romero MD Primary Care Pr ovider Encounter Details Date Type Department Care Team (Late st Contact Info) Description 02/23/2023 Procedure Pass [facility] [address] [place] [address] Social History Tobacco Use Types Packs/Day Years Used Date Smoking Tobacco: Former Cigarettes Smokeless Tobacco: Never Alcohol Use Standard Drinks/Week [...] AM EDT Office Visit [facility] [address] [place] [address] Ana Dukes MD [address] [place] [phone] jose 07/06/2025 9:40 AM EST Office Visit [facility] [address] [place] [address] Bridgette Arreola PA-C [address] [place] [phone] 10/10/2025 10:20 AM EDT Office Visit [facility] [address] [place] [address] Ana Dukes MD [address] [place] [phone] jose 09/23/2026 9:00 AM EDT Office Visit [facility] [address] [place] [phone] Lis Gonzalez [address] [place] [address], [address] [place] [address] [email or web address] documented as of this encounter Visit Diagnoses Not on filedocumented in this encounter Care Teams Run Boat Operator Relationship Specialty Start Date End Date Roby Romero MD [address] [place] [address] PCP - General Family Medicine 05/14/22 documented as of this encounter Additional Source Comments The information contained in this document represents components of the legal health record. It is not the complete legal health record.[facility]
--- OUTSIDE RECORDS SUMMARY | 2025-03-29 10:37 | XMS_ITS | Encounter Summary ---
Author Organization [facility] Address [address] [place] [address] Phone Care Team Providers Care Boilerhouse Mechanic Name Role Phone Roby Romero MD Primary Care Pr ovider Encounter Details Date Type Department Care Team (Late st Contact Info) Description 09/11/2022 Procedure Pass [facility] [address] [place] [address] Social History Tobacco Use Types Packs/Day Years [...] AM EDT Office Visit [facility] [address] [place] [address] Ana Dukes MD [address] [place] [phone] 07/06/2025 9:40 AM EST Office Visit [facility] [address] [place] [address] Bridgette Arreola PA-C [address] [place] [phone] 10/10/2025 10:20 AM EDT Office Visit [facility] [address] [place] [address] Ana Dukes MD [address] [place] [phone] 09/23/2026 9:00 AM EDT Office Visit [facility] [address] [place] [address] Lis Gonzalez [address] [facility], [address] [place] [address] [email or web address] documented as of this encounter Visit Diagnoses Not on filedocumented in this encounter Care Teams Boilerhouse Mechanic Relationship Specialty Start Date End Date Roby Romero MD [address] [place] [address] PCP - General Family Medicine 05/14/22 documented as of this encounter Additional Source Comments The information contained in this document represents components of the legal health record. It is not the complete legal health record.[facility]
--- OUTSIDE RECORDS SUMMARY | 2025-03-29 10:37 | XMS_ITS | Patient Health Record ---
[facility] Address [address] [place] [address] Care Team Providers Care Assembled Wood Products Repairer Name Role Phone John Shaikh MD Primary Care Provider Bonny Gay Unavailable [phone] Allergies Allergen (clinical drug ingredient) Drug/Non Drug [...] Status W/U Status Risk Notes Problem Neuropathy (862413309) Neuropathy (G62.9) Active confirmed Problem Polyneuropathy due to type 2 diabetes mellitus (129816877) Type 2 diabetes mellitus with polyneuropathy (E11.42) Active confirmed Plan Of Treatment No Information Insurance Providers Payer Name Payer Address Payer Phone Subscriber Number Group Number Insured Name Patient Relationship to Insured Coverage Start Date Coverage End Date [employer] Claims [address] [address] [place] [address] [phone] [id number] Nate Perkins Self - patient is the [...]
--- OUTSIDE RECORDS SUMMARY | 2025-03-29 10:37 | XMS_ITS | Clinical Summary ---
Author Organization [facility] Address [address] [id number] Care Team Providers Care Snowboard Designer Name Role Phone Gustavo Sena MD Primary Care Provider [phone] Allergies Active Allergy Reactions Criticality Noted Date [...] 2022 07/28/2007 COVID-19 Vaccine (4 - season) 2025 04/02/2021, 09/25/2020, 09/04/2020 Influenza Vaccine (#1) 2025 , 03/27/2020, 03/20/2019, Additional history exists RSV Adult > 60+ Yrs or (1 - 1-dose 75+ series) 2032 RSV Ped < 20 months Aged Out No longe r eligible based on patient's age to complete this topic Care Teams Snowboard Designer Relationship Specialty Start Date End Date Gustavo Sena MD [address] [place] [address] PCP - General Internal Medicine 01/13/22
--- OUTSIDE RECORDS SUMMARY | 2025-03-29 10:37 | XMS_ITS | Encounter Summary ---
Author Organization [facility] Address [address] [place] [phone] Phone Care Team Providers Care Digital Computer Systems Analyst Name Role Phone Roby Romero MD Primary Care Pr ovider Encounter Details Date Type Department Care Team (Late st Contact Info) Description 08/31/2023 Procedure Pass [facility] [address] [place] [address] Social History Tobacco Use Types Packs/Day Years [...] AM EDT Office Visit [facility] [address] [place] [address] Ana Dukes MD [address] [place] [phone] jose 07/06/2025 9:40 AM EST Office Visit [facility] [address] [place] [address] Bridgette Arreola PA-C [address] [place] [phone] 10/10/2025 10:20 AM EDT Office Visit [facility] [address] [place] [address] Ana Dukes MD [address] [place] [phone] jose 09/23/2026 9:00 AM EDT Office Visit [facility] [address] [place] [phone] Lis Gonzalez [address] [place] [address], [address] [place] [address] [email or web address] documented as of this encounter Visit Diagnoses Not on filedocumented in this encounter Care Teams Digital Computer Systems Analyst Relationship Specialty Start Date End Date Roby Romero MD [address] [place] [address] PCP - General Family Medicine 05/14/22 documented as of this encounter Additional Source Comments The information contained in this document represents components of the legal health record. It is not the complete legal health record.[facility]
== END 2025-03-29 10:30 | disposition home or self-care (01) ==
LOC: HO.HUSH 09:36
PROVIDERS: PCP Family Medicine; Visit Provider Urology
DX: E11.69 Type 2 diabetes mellitus with other specified complication (principal); N52.1 Erectile dysfunction due to diseases classified elsewhere; R39.15 Urgency of urination; R39.12 Poor urinary stream
CPT/HCPCS: 99214

== ENCOUNTER → 2025-03-29 09:35 | Outpatient (BNVA) | payer MEDICARE, OTHER, SELFPAY | PROVIDERS: PCP Family Medicine; Visit Provider Urology | DX: E11.69 Type 2 diabetes mellitus with other specified complication (principal); N52.1 Erectile dysfunction due to diseases classified elsewhere | CPT/HCPCS: 51798; 81003; 99212 ==

== ENCOUNTER 2025-03-29 10:29 | Outpatient (REF) | payer MEDICARE, OTHER, SELFPAY ==
[2025-03-29 12:18] LABS: Alanine Aminotransferase 44 U/L (0-40); Albumin Level 4.5 g/dL (3.5-5.0); Alkaline Phosphatase 66 U/L (39-117); Aspartate Amino Transferase 28 U/L (5-37); Total Protein 7.0 g/dL (6.5-8.0)
[2025-04-06 21:29] LABS: Testosterone, Free 31.4 pg/mL (35.0-155.0)
== END 2025-03-29 10:30 | disposition home or self-care (01) ==
LOC: HO.10HDL 10:29
PROVIDERS: Visit Provider Urology
DX: E11.69 Type 2 diabetes mellitus with other specified complication (principal); N52.1 Erectile dysfunction due to diseases classified elsewhere; E29.1 Testicular hypofunction
CPT/HCPCS: 36415; 80076; 83002; 84402; 84403

== ENCOUNTER 2025-04-13 08:12 | Outpatient (AMB) | payer MEDICARE, OTHER, SELFPAY ==
--- NOTE | 2025-04-13 08:13 | MHC.OFFVIS ---
Intake Visit Reasons: cysto Intake Note: patient presents today for: cystoscopy urology medications: tadalafil, tamsulosin blood thinners: aspirin Slurry Control Operator Helper Required: No Accompanied by: Self / Same As Patient Allergies metformin Adverse Reaction (Severe, Verified 04/13/25 08:14) Diarrhea atorvastatin Adverse Reaction (Unknown, Verified 04/13/25 08:14) uknown canagliflozin Adverse Reaction (Unknown, Verified 04/13/25 08:14) Unknown dapagliflozin Adverse Reaction (Unknown, Verified 04/13/25 08:14) unknown meperidine (From Demerol) Adverse Reaction (Unknown, Verified 04/13/25 08:14) Unknown pioglitazone Adverse Reaction (Unknown, Verified 04/13/25 08:14) Unknown Seasonal Allergies Adverse Reaction (Unknown, Verified 04/13/25 08:14) Unknown spironolactone Adverse Reaction (Unknown, Verified 04/13/25 08:14) Unknown topiramate Adverse Reaction (Unknown, Verified 04/13/25 08:14) Unknown HPI Comments Details: Nate is a pleasant male. He is a patient of . He is seen for the following urologic conditions - lower urinary tract symptoms - testicular pain - erectile dysfunction in setting of diabetes - hypogonadotropic hypogonadism Follow-up tamsulosin 0.8 mg Testosterone labs shows significant impairment Bilobar hypertrophy on cystoscopy Switch from tamsulosin 0.8 to terazosin 5 mg Initiate topical testosterone Lower urinary tract symptoms Poorly controlled diabetes on Trulicity, insulin UA 3+ Flomax Erectile dysfunction in setting of diabetes Prior trial on demand sildenafil Daily tadalafil for bladder control Labs - 04/21 - T 160 LH 2.6 PFSH Medical History (Updated 04/13/25 @ 08:49 by Rachid Barton MD) Peripheral vascular disease Uncontrolled type 2 diabetes mellitus with hyperglycemia, with long-term current use of insulin Uncontrolled type 2 diabetes circulatory disorder erectile dysfunction Surgical History History of cosmetic plastic surgery History of facial surgery Hx of knee surgery Hx of shoulder surgery Hx of cholecystectomy Hx of foot surgery Family History Father Diabetes mellitus, type II Mother Dementia Social History Household Members: Spouse Household Members Other:: Alcohol intake: current Alcohol intake frequency: holidays/special occasions only Patient Tobacco Use Status: Former Tobacco user Substance Use Type: Marijuana Review of Systems Const Denies chills and Denies fever(s) Card Reports no additional complaints and Denies syncope Resp Denies cough GI Denies abdominal pain and Denies heartburn Reports as per HPI and Denies change in libido Neuro Denies syncope Psych Denies change in libido Endo Denies change in libido Physical Exam Const General: cooperative, healthy appearing, comfortable and no acute distress Orientation/consciousness: patient oriented x3 HEENT Face and sinus: Yes normal facial exam Mouth: moist mucous membranes Neck Neck: Yes normal visual inspection, Yes full ROM and Yes trachea midline Chest Chest palpation & inspection: normal inspection of the chest Resp Effort & Inspection: normal respiratory effort, able to speak in complete sentences and no respiratory distress GI Inspection: Yes normal to inspection Back/Spine/Pelvis Cervical Spine: normal cervical lordosis Thoracic/Lumbar Spine: thoracic and lumbar spine normal to inspection Skin General skin exam: no rashes or lesions noted Neuro General: patient oriented x3, gait normal, tone normal and moves all extremities Extrem General: Yes normal to inspection and Yes capillary refill normal Office Procedures Cystoscopy Consent Discussed risk and benefit or proposed procedure with the patient. Information consent for procedure given to the patient. Discussed technical aspects, risks, benefits and alternatives in full. Addressed all of the patient's questions and concerns regarding the procedure. The patient demonstrated knowledge and understanding. They wish to proceed with this procedure. Preparation The patient was prepped in the usual manner. A home energy consultant supervisor was present and in the room. Genitalia was prepped with betadine solution in a sterile manner. Lidocaine Jelly 2% was placed into the urethra and 16Fr flexible Olympus cystoscope was inserted into the meatus after adequate lubrication. Procedure Cystoscopy performed using a disposable Urovue digital 16 Persian cystoscope. Meatus circumcised Urethra anterior and posterior urethra normal Prostatic Urethra bilobar hypertrophy Bladder examination with retroflexion of cystoscope Bladder Orifices normal shape and position Bladder Capacity Normal Trabeculations Grade 0 Cellule Formation None Diverticulum Formation None Mucosal Erythema None Bladder Tumor None [id number] DISPOSABLE SCOPE URO-G FLEXIBLE SCOPE Procedure code (CPT) selection complete Office Meds lidocaine HCl 2 % mucosal jelly in applicator Performing Provider: Rachid Barton MD Performing Location: [facility] Administered by: Curtis Ramos LPN on 04/13/25 08:30 Dose Route Admin Location Dispensed Lot Number Expiration Date ND Leather Goods Assembler 10 mL intra-urethral 10 mL nitrofurantoin monohydrate/macrocrystals 100 mg capsule Performing Provider: Rachid Barton MD Performing Location: [facility] Administered by: Curtis Ramos LPN on 04/13/25 08:30 Dose Route Admin Location Dispensed Lot Number Expiration Date NDC Leather Goods Assembler 100 mg PO 1 cap Results AMB Urinalysis, Automated UA Leukoctes 0 Ivonne/uL Last Edit by JOSÉ MIGUEL Tucker on 04/13/25 08:26 UA Nitrite Last Edit by JOSÉ MIGUEL Tucker on 04/13/25 08:26 UA Urobilinogen 0.2 mg/dL Last Edit by JOSÉ MIGUEL Tucker on 04/13/25 08:26 UA Protein 30 mg/dL Last Edit by JOSÉ MIGUEL Tucker on 04/13/25 08:26 UA pH 6.0 Last Edit by JOSÉ MIGUEL Tucker on 04/13/25 08:26 UA Blood 0 Rajesh/uL Last Edit by JOSÉ MIGUEL Tucker on 04/13/25 08:26 UA Specific Boaz 1.030 Last Edit by JOSÉ MIGUEL Tucker on 04/13/25 08:26 UA Ketone Last Edit by JOSÉ MIGUEL Tucker on 04/13/25 08:26 UA Bilirubin 1 mg/dL Last Edit by JOSÉ MIGUEL Tucker on 04/13/25 08:26 UA Glucose 0 mg/dL Last Edit by JOSÉ MIGUEL Tucker on 04/13/25 08:26 Results Reviewed Results Reviewed: Laboratory Last Values Urine pH (Auto) 6.0 04/13/25 08:26 Specific Boaz (Auto) 1.030 04/13/25 08:26 Urine Protein (Auto) 30 mg/dL 04/13/25 08:26 Glucose (UA)(Auto) 0 mg/dL 04/13/25 08:26 Urine Blood (Auto) 0 Rajesh/uL 04/13/25 08:26 Urine Bilirubin (Auto) 1 mg/dL 04/13/25 08:26 Urine Urobilinogen (Auto) 0.2 mg/dL 04/13/25 08:26 Leukocyte Esterase (Auto) 0 Ivonne/uL 04/13/25 08:26 Assessment & Plan Assessment & Plan (1) Hypogonadotropic hypogonadism: Code(s): E23.0 - Hypopituitarism Category: Medical Plan Three-month follow-up lab work Start testosterone Orders: Orders AMB Urinalysis Automated Today Z13.9 - Encounter for screening, unspecified AMB Cystoscopy Today R39.12 - Poor urinary stream, R39.15 - Urgency of urination Testosterone, Free/Total 10 Weeks E23.0 - Hypopituitarism Medications: New testosterone apply 2 pumps over max area - alternate shoulders on alternate days 2 pumps topical DAILY 75 grams 1RF 30 days E23.0 - Hypopituitarism, E29.1 - Testicular hypofunction, R79.89 - Other specified abnormal findings of blood chemistry terazosin 5 mg PO BEDTIME 30 caps 1RF 30 days N40.1 - Benign prostatic hyperplasia with lower urinary tract symptoms, R35.0 - Frequency of micturition, R39.12 - Poor urinary stream Patient Instructions: This note is constructed using voice recognition software. While every effort has been made to ensure accuracy general manager in training errors may have been included. Imaging studies, laboratory and physical exam results were discussed and reviewed in detail. No major barriers to patient understanding were identified. An opportunity to ask questions regarding the treatment plan was provided. All questions were answered. The patient expressed understanding and agreement with the above treatment plan. The patient is aware they should contact our office by phone for worsening of their current condition or the appearance of new urologic symptoms. Compliance is encouraged with any medications and followup testing that is ordered. It is a privilege to participate in the urologic care of your patient. If you have any questions or concerns regarding treatment for the above conditions, or other urologic issues, please do not hesitate to contact me. The office telephone contact is [phone]. Sincerely, Dr Rachid Barton MD, [facility] - Urology Compassionate Specialist Care for the Genitourinary System Coding Level of Care Code Est Pt Level 4 (44305) Complex EM visit Add On G2211 Diagnoses Hypogonadotropic hypogonadism E23.0 CPT Codes Cystoscopy - CPT: 59783-[id number] ([id number])
== END 2025-04-13 08:55 | disposition home or self-care (01) ==
LOC: HO.HUSH 08:13
PROVIDERS: PCP Family Medicine; Visit Provider Urology
DX: R39.15 Urgency of urination (principal); R39.12 Poor urinary stream; E23.0 Hypopituitarism
CPT/HCPCS: 52000

== ENCOUNTER → 2025-04-13 08:12 | Outpatient (BNVA) | payer MEDICARE, OTHER, SELFPAY | PROVIDERS: PCP Family Medicine; Visit Provider Urology | DX: R39.12 Poor urinary stream (principal); R39.15 Urgency of urination; Z13.9 Encounter for screening, unspecified | CPT/HCPCS: 52000; 81003 ==

== ENCOUNTER 2025-06-25 11:15 | Outpatient (REF) | payer MEDICARE, OTHER, SELFPAY ==
--- OUTSIDE RECORDS SUMMARY | 2025-06-19 10:25 | XMS_ITS | Encounter Summary ---
Author Organization [facility] Address [address] [place] [address] Care Team Providers Care Animal Husbandman Name Role Phone Roby Romero MD Primary Care Pr ovid Reason for Referral * Imaging (Emergency) - Closed Specialty Diagnoses / Procedures Referred By Contac t Referred To Contact Radiology Diagnoses Left flank pain Procedures CT Abdomen Pelvis wo Contrast Bonny Morton PA [address] [place], [place] Phone: tel: fax: CT Scan - [address] Phone: tel: fax: Referral ID Status Reason Start Date Expiration Date Visits Re quested Visits Authorized [id number] Closed 06/19/2025 06/19/2026 1 1 Reason for Visit * Imaging (Emergency) - Closed Specialty Diagnoses / Procedures Referred By Contac t Referred To Contact Radiology Diagnoses Left flank pain Procedures CT Abdomen Pelvis wo Contrast Bonny Morton PA [address] [place], [place] Phone: tel: fax: CT Scan - [address] Phone: tel: fax: Referral ID Status Reason Start Date Expiration Date Visits Re quested Visits Authorized [id number] Closed 06/19/2025 06/19/2026 1 1 Encounter Details Date Type Department Care Team (Latest Contact Info) Description 06/19/2025 10:25 AM EST - 06/19/2025 11:59 PM EST Hospital Encounter CT Scan - [address] [phone] Left flank pain Discharge Disposition: Home or Self Care Social History Tobacco Use Types Packs/Day Years Used Date Smoking Tobacco: Former Cigarettes 1 49 1 2022 Cigars Smokeless Tobacco: Current Comments:Uses Cigars sometim es Alcohol Use Standard Drinks/Week Comments Not Currently [...] your loved ones. For example, child care team lead or elderly care for an older adult? [...] on file documented as of this encounter Medications at Time of Discharge albuterol HFA (PROAIR HFA ; PROVENTIL HFA ; VENTOLIN HFA) 90 mcg/actuation inhalerIndications:Ch ronic obstructive pulmonary disease, unspecified COPD type ([facility] V24, [facility] V28) INHALE 2 INHALATIONS BY MOUTH EVERY 4 HOURS IF NEEDED FOR WHEEZING 51 g 3 5 aspirin 81 mg EC tablet Take 1 Tablet by mouth daily. budesonide (PULMICORT) 0.5 mg/2 mL nebulizer solutionIndications:C hronic obstructive pulmonary disease, unspecified COPD type ([facility] V24, [facility] V28) USE 1 VIAL IN NEBULIZER TWICE DAILY - Rinse Mouth After Use. Wash Face Too If Mask Used 60 each 11 5 cyclobenzaprine (FLEXERIL) 5 mg tabletIndications:Lum bar sprain, subsequent encounter Take 1 tablet (5 mg total) by mouth at bedtime as needed for muscle spasms. 30 tablet 5 dulaglutide (Trulicity) 4.5 mg/0.5 mL pen injector injectionIndications: Type 2 diabetes mellitus with microalbuminuria ([facility] V24, [facility] V28) Inject 0.5 mL (4.5 mg total) under the skin every 7 (seven) days. 5 HYDROcodone-acetamino phen (NORCO) 10-325 mg per tablet Take 1 tablet by mouth every 8 (eight) hours if needed for severe pain for up to 7 days. 21 tablet 5 06/26/20 25 insulin regular (HumuLIN R U-500) 500 unit/mL CONCENTRATED injection Inject 200 Units under the skin 2 (two) times a day before meals. 4 losartan (COZAAR) 50 mg tabletIndications:Ess ential (primary) hypertension Take 1 tablet (50 mg total) by mouth 1 (one) time each day. 90 each 1 5 08/07/19 26 miscellaneous medical supply [facility] See Instructions, # 1 each, Refills 12, Tot. Refills 12, Maintenance, DX: PARTH Pressure of 8cm H2O, along with a large sized quattro fx full face MASK,TUBING,FILT ERS,HEADGEAR, CHIN STRAP AND WATER CHAMBER [id number], 06/04/17 7:50:32, Compound 7 Perforomist 20 mcg/2 mL nebulizer solutionIndications:C hronic obstructive pulmonary disease, unspecified COPD type ([facility] V24, [facility] V28) USE 1 VIAL IN NEBULIZER TWICE DAILY - Morning and Evening 60 each 5 rosuvastatin (CRESTOR) 40 mg tabletIndications:Mix ed hyperlipidemia Take 1 tablet (40 mg total) by mouth at bedtime. at bedtime. 90 each 1 5 08/07/19 26 sildenafiL (VIAGRA) 100 mg tabletIndications:Ere ctile dysfunction, unspecified erectile dysfunction type Take 1 tablet (100 mg total) by mouth if needed for erectile dysfunction. Take one tablet 30 mins to an hour prior to sexual activity 90 tablet 5 terazosin (HYTRIN) 5 mg capsuleIndications:Be nign prostatic hyperplasia with lower urinary tract symptoms, symptom details unspecified Take 1 capsule (5 mg total) by mouth daily. 5 testosterone 1.62 % (40.5 mg/2.5 gram) gel in packetIndications:Gloria tosterone deficiency in male 5 triamcinolone (KENALOG) 0.5 % ointment Apply topically 2 (two) times a day. Apply small amounts to affected area every 12 hours. Do not use for more than 14 days at a time 30 g 5 documented as of this encounter Discharge Disposition Disposition Code Departure Means Destination Home or Self Care documented in this encounter Plan of Treatment Upcoming Encounters Date Type Department Care Team (Late st Contact Info) Description 07/26/2025 10:30 AM EST Office Visit Adult Medicine [facility] [address] [place] [address] Bonny Morton PA [address] [place] [address] 08/23/2025 11:00 AM EST Office Visit [facility] Hematology Oncology [address] [place] [phone] Dick Lim MD [address] [place] [phone] 04/30/2026 11:00 AM EST Office Visit Pulmonology [facility] [address] [facility] [address] [place] [phone] Juhi Snow NP [address] [place] [address] documented as of this encounter Procedures Procedure Name Priority Date/Time Associated Diagnosis Comments CT ABDOMEN PELVIS WO CONTRAST STAT 06/19/2025 10:36 AM EST Left flank pain documented in this encounter Results * CT Abdomen Pelvis wo Contrast (06/19/2025 10:36 AM EST) Anatomical Region Laterality Modality Body Computed Tomogra phy 06/19/2025 11:3 0 AM EST Impressions 06/19/2025 11:51 AM EST 1. Mild left hydronephrosis with mild perinephric stranding and periureteral stranding. No obstructing ureteral calculi. Findings may represent a recently passed stone. 2. Nonspecific contusion/inflammation within the bilateral anterior abdominal wall, correlate with recent trauma. 3. No evidence of bilateral renal calculi or ureteral calculi -------- FINAL REPORT -------- Dictated By: Ave Kline Dictated Date: 06/19/2025 11:30 ET Assigned Physician: Ave Kline Reviewed and Electronically Signed By: Ave Kline Signed Date: 06/19/2025 11:51 ET Workstation ID: [id number] Transcribed By: Self Edit Transcribed Date: 06/19/2025 11:30 ET Narrative 06/19/2025 11:[address] ABDOMEN AND PELVIS WITHOUT INTRAVENOUS CONTRAST HISTORY: L flank pain. TECHNIQUE: Multiple contiguous axial images of the abdomen and pelvis were obtained without intravenous contrast. Images were reformatted to coronal and sagittal planes. Radiation dose is 23.89mGy COMPARISON: None FINDINGS: Lungs: The lung bases are clear. Mediastinum: The cardiac apex is normal in size, small pericardial effusion Upper GI: The liver measures 20.1 cm. The liver, pancreas and spleen are grossly within normal limits. The patient is status post cholecystectomy. Small duodenal hernia. : Left lipid rich adrenal nodule measures 1.1 cm. Right lipid rich adrenal nodule measures 1.4 cm. The right kidney is grossly within normal limits. There is mild left hydronephrosis with mild perinephric stranding. There is minimal left periureteral stranding. No obstructing ureteral calculi bilaterally. No bilateral renal calculi. The bladder is partially decompressed. Lower GI: The bowel is without obstruction or inflammation and there is no free fluid or free air within the peritoneal cavity. Mild diverticulosis without diverticulitis. The terminal ileum and appendix are unremarkable. Multiple subcentimeter lymph nodes throughout the abdomen and pelvis. Vascular: Moderate atherosclerotic calcification of the abdominal aorta. MSK: Fat-containing ventral hernia measuring 2.3 x 3.1 cm. Bilateral fat-containing inguinal hernias. There is nonspecific contusion/inflammation within the bilateral anterior abdominal wall. Moderate degenerative changes of the lumbar spine. Procedure Note Ave Kline MD - 06/19/2025 CT ABDOMEN AND PELVIS WITHOUT INTRAVENOUS CONTRAST HISTORY: L flank pain. TECHNIQUE: Multiple contiguous axial images of the abdomen and pelviswere obtained without intravenous contrast. Images were reformatted tocoronal and sagittal planes. Radiation dose is 23.89mGy COMPARISON: None FINDINGS: Lungs: The lung bases are clear. Mediastinum: The cardiac apex is normal in size, small pericardial effusion Upper GI: The liver measures 20.1 cm. The liver, pancreas and spleen are grosslywithin normal limits. The patient is status post cholecystectomy. Smallduodenal hernia. : Left lipid rich adrenal nodule measures 1.1 cm. Right lipid rich adrenalnodule measures 1.4 cm. The right kidney is grossly within normal limits.There is mild left hydronephrosis with mild perinephric stranding. Thereis minimal left periureteral stranding. No obstructing ureteral calculibilaterally. No bilateral renal calculi. The bladder is partiallydecompressed. Lower GI: The bowel is without obstruction or inflammation and there is no freefluid or free air within the peritoneal cavity. Mild diverticulosiswithout diverticulitis. The terminal ileum and appendix are unremarkable.Multiple subcentimeter lymph nodes throughout the abdomen and pelvis.Vascular: Moderate atherosclerotic calcification of the abdominal aorta. MSK: Fat-containing ventral hernia measuring 2.3 x 3.1 cm. Bilateralfat-containing inguinal hernias. There is nonspecificcontusion/inflammation within the bilateral anterior abdominal wall.Moderate degenerative changes of the lumbar spine. IMPRESSION: 1. Mild left hydronephrosis with mild perinephric stranding andperiureteral stranding. No obstructing ureteral calculi. Findings mayrepresent a recently passed stone. 2. Nonspecific contusion/inflammation within the bilateral anteriorabdominal wall, correlate with recent trauma. 3. No evidence of bilateral renal calculi or ureteral calculi -------- FINAL REPORT -------- Dictated By: Ave Kline Dictated Date: 06/19/2025 11:30 ET Assigned Physician: Ave Kline Reviewed and Electronically Signed By: Ave Kline Signed Date: 06/19/2025 11:51 ET Workstation ID: [id number] Transcribed By: Self Edit Transcribed Date: 06/19/2025 11:30 ET us Bonny DALAL IM CT PROCEDURES Final Resul t documented in this encounter Visit Diagnoses Diagnosis Left flank pain Abdominal pain, unspecified site documented in this encounter Additional Health Concerns Assessment Noted Time PHQ-9 Depression Total Score: 11 024 9:03 PM EST documented as of this encounter Care Teams Animal Husbandman Relationship Specialty Start Date End Date Roby Romero MD [address] [place], [place] PCP - General Internal Medicine 02/02/22 documented as of this encounter
--- OUTSIDE RECORDS SUMMARY | 2025-06-25 13:12 | XMS_ITS | Encounter Summary ---
Author Organization [facility] Address [address] [place] [address] Phone Care Team Providers Care Import Customs Clearing Agent Name Role Phone Roby Romero MD Primary Care Pr ovider Encounter Details Date Type Department Care Team (Late st Contact Info) Description 02/23/2023 Procedure Pass [facility] [address] [place] [address] Social History Tobacco Use Types Packs/Day Years [...] Care Team (Late st Contact Info) Description 07/06/2025 9:40 AM EST Office Visit [facility] Endocrinology [address] [address] Bridgette Arreola PA-C [address] [place] [address] 10/10/2025 10:20 AM EDT Office Visit [facility] Endocrinology [address] [address] Ana Dukes MD [address] [place] [address] 09/23/2026 9:00 AM EDT Office Visit [facility] [address] [place] [address] Lis Gonzalez [address] [place] [address], [address] [place] [address] [email or web address] documented as of this encounter Visit Diagnoses Not on filedocumented in this encounter Care Teams Import Customs Clearing Agent Relationship Specialty Start Date End Date Roby Romero MD [address] [place] [address] PCP - General Family Medicine 05/14/22 documented as of this encounter Additional Source Comments The information contained in this document represents components of the legal health record. It is not the complete legal health record.[facility]
--- OUTSIDE RECORDS SUMMARY | 2025-06-25 13:12 | XMS_ITS | Encounter Summary ---
Author Organization [facility] Address [address] [place] [address] Phone Care Team Providers Care Cuff Setter Name Role Phone Roby Romero MD Primary Care Pr ovider Encounter Details Date Type Department Care Team (Late st Contact Info) Description 08/31/2023 Procedure Pass [facility] [place] [place] [facility] [address] [place] [address] Social History Tobacco Use Types Packs/Day Years [...] Description 07/06/2025 9:40 AM EST Office Visit [facility] Endocrinology [address] [address] Bridgette Arreola PA-C [address] [place] [address] 10/10/2025 10:20 AM EDT Office Visit [facility] Endocrinology [address] [address] Ana Dukes MD [address] [place] [address] 09/23/2026 9:00 AM EDT Office Visit [facility] Primary [facility] Clinic [address] [place] [address] Lis Gonzalez [address] [place] [address], [address] [place] [address] [email or web address] documented as of this encounter Visit Diagnoses Not on filedocumented in this encounter Care Teams Cuff Setter Relationship Specialty Start Date End Date Roby Romero MD [address] [place] [address] PCP - General Family Medicine 05/14/22 documented as of this encounter Additional Source Comments The information contained in this document represents components of the legal health record. It is not the complete legal health record.[facility]
--- OUTSIDE RECORDS SUMMARY | 2025-06-25 13:12 | XMS_ITS | Encounter Summary ---
Author Organization [facility] Address [address] [place] [address] Care Team Providers Care Electrician Apprentice Name Role Phone Roby Romero MD Primary Care Pr ovider Reason for Referral * Consultation (Routine) - Canceled Specialty Diagnoses / Procedures Referred By Contac t Referred To Contact Physical Therapy Diagnoses Osteoarthritis of lumbar spine with myelopathy Roby Romero MD [address] [place] [address] Phone: tel: fax: Referral ID Status Reason Start Date Expiration Date Visits Requested Visits Authorized [id number] Canceled Specialty Services Required 04/26/2025 04/26/2026 1 1 * Consultation (Routine) - Closed Specialty Diagnoses / Procedures Referred By Contact Referred To Contact Physical Medicine and Rehabilitation Diagnoses Osteoarthritis of lumbar spine with myelopathy Roby Romero MD [address] [place] [address] Phone: tel: fax: Jeff Shah DO [address] [address] Phone: tel:[phone] fax:[phone] Referral ID Status Reason Start Date Expiration Date V isits Requested Visits Authorized [id number] Closed Specialty Services Required 04/26/2025 04/26/2026 1 1 Encounter Details Date Type Department Care Team (Late st Contact Info) Description 04/26/2025 Results Follow-Up Adult Medicine [facility] [address] [place] [address] Roby Romero MD [address] [place], [place] Social History Tobacco Use Types Packs/Day Years Used Date Smoking Tobacco: Former Cigarettes 1 49 1 - 2022 Cigars Smokeless Tobacco: Current Comments:Uses [...] for your loved ones. For example, child life therapist or elderly care for an older adult? [...] 10:30 AM EST Office Visit Adult Medicine [address] [address] Bonny Morton PA [address] [place] [address] 08/23/2025 11:00 AM EST Office [facility] Hematology Oncology [address] [place] [phone] Dick Lim MD [address] [place] [phone] 04/30/2026 11:00 AM EST Office Visit Pulmonology - [address] [place] [address] Juhi Snow, MIRIAM [address] [place] [address] Scheduled Referrals Name Type Priority Associated Diagnoses Order Schedule Ambulatory referral to Physical Medicine Rehab Outpatient Referral Routine Osteoarthritis of lumbar spine with myelopathy 1 Occurrences starting 04/26/2025 until 04/26/2026 Ambulatory referral to Physical Therapy and Athletic Training Outpatient Referral Routine Osteoarthritis of lumbar spine with myelopathy 1 Occurrences starting 04/26/2025 until 04/26/2026 documented as of this encounter Visit Diagnoses Diagnosis Osteoarthritis of lumbar spine with myelopathy- Primary documented in this encounter Additional Health Concerns Assessment Noted Time PHQ-9 Depression Total Score: 11 024 9:03 PM EST documented as of this encounter Care Teams Electrician Apprentice Relationship Specialty Start Date End Date Roby Romero MD [address] [place], [place] PCP - General Internal Medicine 02/02/22 documented as of this encounter
--- OUTSIDE RECORDS SUMMARY | 2025-06-25 13:12 | XMS_ITS | Encounter Summary ---
Author Organization [facility] Address [address] [place] [address] Care Team Providers Care Splunk Architect Name Role Phone Roby Romero MD Primary Care Pr ovider Encounter Details Date Type Department Care Team ([facility] Contact Info) Description 09/20/2024 Nurse Triage Adult Medicine [address] [phone] Bonny Morton PA [address] [place] [address] Social History Tobacco Use Types Packs/Day Years [...] care for your loved ones. For example, summer child caregiver or elderly care for an older adult? [...] 10:30 AM EST Office Visit Adult Medicine [address] [address] Bonny Morton PA [address] [place] [address] 08/23/2025 11:00 AM EST Office Visit [facility] Hematology Oncology [address] [place] [phone] Dick Lim MD [address] [place] [phone] 04/30/2026 11:00 AM EST Office Visit Pulmonology [facility] [address] [facility] [address] [place] [phone] Juhi Snow, MIRIAM [address] [place] [phone] documented as of this encounter Visit Diagnoses Not on filedocumented in this encounter Additional Health Concerns Assessment Noted Time PHQ-9 Depression Total Score: 11 024 9:03 PM EST documented as of this encounter Care Teams Splunk Architect Relationship Specialty Start Date End Date Roby Romero MD [address] [place], [place] PCP - General Internal Medicine 02/02/22 documented as of this encounter
--- OUTSIDE RECORDS SUMMARY | 2025-06-25 13:12 | XMS_ITS | Encounter Summary ---
Author Organization [facility] Address [address] [place] [address] Phone Care Team Providers Care Truck Rental Clerk Name Role Phone Roby Romero MD Primary Care Pr ovider Encounter Details Date Type Department Care Team (Late st Contact Info) Description 09/11/2022 Procedure Pass [facility] [address] [place] [address] Social History Tobacco Use Types Packs/Day Years [...] Description 07/06/2025 9:40 AM EST Office Visit [facility] Endocrinology [address] [place] [address] Bridgette Arreola PA-C [address] [place] [address] [email or web address] 10/10/2025 10:20 AM EDT Office Visit [facility] Endocrinology [address] [place] [address] Ana Dukes MD [address] [place] [address] 09/23/2026 9:00 AM EDT Office Visit [facility] Primary Care Clinic [address] [place] [address] [place] [address] Lis Gonzalez [address] [facility] [place] [address] [email or web address] documented as of this encounter Visit Diagnoses Not on filedocumented in this encounter Care Teams Truck Rental Clerk Relationship Specialty Start Date End Date Roby Romero MD [address] [place] [address] PCP - General Family Medicine 05/14/22 documented as of this encounter Additional Source Comments The information contained in this document represents components of the legal health record. It is not the complete legal health record.[facility]
--- OUTSIDE RECORDS SUMMARY | 2025-06-25 13:12 | XMS_ITS | Patient Health Record ---
Author Organization [facility] Address [address] [facility] [place] [address] Care Team Providers Care Page Technician Name Role Phone John Shaikh MD Primary Care Provider Bonny Gay Unavailable [phone] Allergies Allergen (clinical drug ingredient) Drug/Non Drug [...] Status W/U Status Risk Notes Problem Neuropathy (387987799) Neuropathy (G62.9) Active confirmed Problem Polyneuropathy due to type 2 diabetes mellitus (550102051) Type 2 diabetes mellitus with polyneuropathy (E11.42) Active confirmed Plan Of Treatment No Information Insurance Providers Payer Name Payer Address Payer Phone Subscriber Number Group Number Insured Name Patient Relationship to Insured Coverage Start Date Coverage End Date [employer] Claims [address] [address] [place] [address] [id number] Nate Perkins Self - patient is the [...]
--- OUTSIDE RECORDS SUMMARY | 2025-06-25 13:12 | XMS_ITS | Clinical Summary ---
Author Organization [facility] Address [address] [place] [address] Care Team Providers Care Family Practice Nurse Practitioner Name Role Phone Debby Wiggins MD Primary Care Provider + [phone] Medications aspirin 81 mg EC tablet Take [...] sensor every 10 days. 9 each 3 06/11/2025 7:27 AM EST 5 Active Social History Tobacco Use Types [...] 1957 Medicare AWV 1958 Ophthalmology Exam 1967 RSV Vaccine (60+ years old a nd patients) (1 - Risk 50-74 years 1-dose series) 2007 Zoster Vaccines (1 of 2) 2007 Pneumococcal Vaccine: 50+ Ye ars (2 of 2 - PCV) 07/28/2008 07/28/2007 Hepatitis B Vaccines (2 of 3 - 19+ 3-dose series) 11/21/2013 10/24/2013, 10/24/2013, 07/25/2013 Hemoglobin A1C 02/11/2024 08/13/2023, 06/11/2023 Basic Metabolic Panel 06/11/2024 06/11/2023 Urine Microalbumin 06/11/2024 06/11/2023 Alcohol/Substance Use Screening 06/28/2024 Depression Screening and Follow-Up 06/28/2024 Fall Risk Screening 06/28/2024 Health Care Proxy Review 06/28/2024 Social Drivers of Health Keke ual Screening 06/28/2024 Influenza Vaccine (#1) 2025 , 04/20/2022, 04/11/2021, Additional history exists COVID-19 Vaccine (6 - 2024-2 6 season) 2025 04/20/2022, 10/30/2021, 04/02/2021, Additional history exists DTaP,Tdap,and Td Vaccines (3 - Td or Tdap) 12/06/2030 12/06/2020, 10/09/2009, 07/28/1999 Procedures * Due to [place] [employer] law, this organization might not be sharing [...] to Health Maintenance Results * Due to [place] [employer] law, this organization might not be sharing negative HIV tests. * (ABNORMAL) Hemoglobin A1c, Outside Lab (08/13/2023) Hemoglobin A1C 8.9(H) % Blood Structure of peripheral vein / Unknown 08/13/2023 us Unknown Provider MD LAB BLOOD ORDERABLES Final R esult * (ABNORMAL) Microalbumin, Random Urine with Creatinine (06/11/2023 12:21 PM EST) Microalbumin, Urine 5.8 mg/dL 06/11/2023 1:43 PM EST [facility] Creatinine, Urine 107 22 - 328 mg/dL 06/11/2023 1:43 PM EST [facility] Microalb/Creat Ratio, Random Urine 54.2(H) <30.0 mcg/mgCr 06/11/2023 1:43 PM EST [facility] Comment: Microalbumin Reference Range: Normal <30 mcg/mg Creatinine Microalbuminuria 30-300 mcg/mg Creatinine Clinical Albuminuria >300 mcg/mg Creatinine Reference: ADA Guideline. Diabetes Care. 2004;27 (suppl 1) Urine Voided urine specimen / Unknown Non-Blood Collection / Unknown 06/11/2023 12:21 PM EST 06/11/2023 12:57 PM EST us Jennifer Menjivar MD LAB URINE ORDERABLES Final R esult [facility] [address] [place] [id number], * (ABNORMAL) Comprehensive Metabolic Panel (06/11/2023 12:21 PM EST) NA 141 135 - 145 mmol/L 06/11/2023 1:43 PM EST [facility] K 4.6 3.5 - 5.3 mmol/L 06/11/2023 1:43 PM EST [facility] Cl 106 97 - 110 mmol/L 06/11/2023 1:43 PM EST [facility] CO2 27 24 - 32 mmol/L 06/11/2023 1:43 PM EST [facility] Anion Gap 8 5 - 15 06/11/2023 1:43 PM EST [facility] Glucose 186(H) 70 - 99 mg/dL 06/11/2023 1:43 PM EST [facility] Creatinine 0.95 0.60 - 1.30 mg/dL 06/11/2023 1:43 PM EST [facility] Calcium 9.3 8.7 - 10.7 mg/dL 06/11/2023 1:43 PM EST [facility] Total Protein 6.8 6.0 - 8.0 g/dL 06/11/2023 1:43 PM EST [facility] Albumin 4.2 3.5 - 4.8 g/dL 06/11/2023 1:43 PM EST [facility] Bilirubin, Total 0.9 0.3 - 1.2 mg/dL 06/11/2023 1:43 PM EST [facility] Alkaline Phosphatase 67 30 - 115 U/L 06/11/2023 1:43 PM EST [facility] AST 20 10 - 40 U/L 06/11/2023 1:43 PM EST [facility] ALT 28 10 - 40 U/L 06/11/2023 1:43 PM EST [facility] BUN 18 7 - 23 mg/dL 06/11/2023 1:43 PM EST [facility] eGFR 89 >=60 mL/min/1. 73m2 06/11/2023 1:43 PM EST [facility] Comment:The estimated glomer ular [...] 12:57 PM EST Jennifer Menjivar MD LAB BLOOD ORDERABLES Final R esult [facility] [address] [place] [address], from Last 3 Months or Most Recently Relevant to Health Maintenance Insurance MEDICARE [facility] Care Teams Family Practice Nurse Practitioner Relationship Specialty Start Date End Date Debby Wiggins MD [address] [place] [address] [address] [place] [address] [place] [address] PCP - General 06/07/23
--- OUTSIDE RECORDS SUMMARY | 2025-06-25 13:12 | XMS_ITS | Clinical Summary ---
Author Organization [facility] Prior to 11/25/[address] [place] [id number] Care Team Providers Care Volunteer Patient Representative Name Role Phone Gustavo Sena MD Primary Care Provider [phone] Allergies Active Allergy Reactions Criticality Noted Date [...] age to complete this topic Care Teams Volunteer Patient Representative Relationship Specialty Start Date End Date Gustavo Sena MD [address] [place] [address] PCP - General Internal Medicine 01/13/22
--- OUTSIDE RECORDS SUMMARY | 2025-06-25 13:12 | XMS_ITS | Clinical Summary ---
Author Organization 175 [facility] Address [address] [place] [address] Phone Care Team Providers Care Crab Fisher Name Role Phone Roby Romero MD Primary [...] LTERS,HEADGEAR , [employer] [phone], 06/04/17 7:50:32, Compound 06/04/20 17 Active dulaglutide (Trulicity) 4.5 mg/0.5 mL pen injector injectionIndication s:Type 2 diabetes mellitus with microalbuminuria ([facility] V24, [facility] V28) Inject 0.5 mL (4.5 mg total) under the skin every 7 (seven) days. 06/30/19 25 Active albuterol HFA (PROAIR HFA ; PROVENTIL HFA ; VENTOLIN HFA) 90 mcg/actuation inhalerIndications: Chronic obstructive pulmonary disease, unspecified COPD type ([facility] V24, [facility] V28) INHALE 2 INHALATIONS BY MOUTH EVERY 4 HOURS IF NEEDED FOR WHEEZING 51 g 3 09/07/19 25 Active triamcinolone (KENALOG) 0.5 % ointment Apply topically 2 (two) times a day. Apply small amounts to affected area every 12 hours. Do not use for more than 14 days at a time 30 g 09/29/19 25 Active Perforomist 20 mcg/2 mL nebulizer solutionIndications :Chronic obstructive pulmonary disease, unspecified COPD type ([facility] V24, [facility] V28) USE 1 VIAL IN NEBULIZER TWICE DAILY - Morning and Evening 60 each 12/20/19 25 Active budesonide (PULMICORT) 0.5 mg/2 mL nebulizer solutionIndications :Chronic obstructive pulmonary disease, unspecified COPD type ([facility] V24, [facility] V28) USE 1 VIAL IN NEBULIZER TWICE DAILY - Rinse Mouth After Use. Wash Face Too If Mask Used 60 each 12/20/19 25 Active losartan (COZAAR) 50 mg tabletIndications:E ssential (primary) hypertension Take 1 tablet (50 mg total) by mouth 1 (one) time each day. 90 each 02/09/20 25 026 Active rosuvastatin (CRESTOR) 40 mg tabletIndications:M ixed hyperlipidemia Take 1 tablet (40 mg total) by mouth at bedtime. at bedtime. 90 each 02/09/20 25 026 Active testosterone 1.62 % (40.5 mg/2.5 gram) gel in packetIndications:T estosterone deficiency in male 04/17/20 25 Active terazosin (HYTRIN) 5 mg capsuleIndications: Benign prostatic hyperplasia with lower urinary tract symptoms, symptom details unspecified Take 1 capsule (5 mg total) by mouth daily. 04/13/20 25 Active cyclobenzaprine (FLEXERIL) 5 mg tabletIndications:L umbar sprain, subsequent encounter Take 1 tablet (5 mg total) by mouth at bedtime as needed for muscle spasms. 30 tablet 04/25/20 25 Active sildenafiL (VIAGRA) 100 mg tabletIndications:E rectile dysfunction, unspecified erectile dysfunction type Take 1 tablet (100 mg total) by mouth if needed for erectile dysfunction. Take one tablet 30 mins to an hour prior to sexual activity 90 tablet 04/25/20 25 Active HYDROcodone-acetami nophen (NORCO) 10-325 mg per tablet Take 1 tablet by mouth every 8 (eight) hours if needed for severe pain for up to 7 days. 21 tablet 06/19/20 25 025 Active HYDROcodone-acetami nophen (NORCO) 10-325 mg per tablet Take 1 tablet by mouth every 8 (eight) hours if needed for severe pain for up to 7 days. 21 tablet 06/19/20 25 025 Discontin ued(Reord er) Active Problems Problem Noted Date Diagnosed Date Adrenal adenoma 06/19/2025 Overview (06/19/2025): CT abdomen pelvis 05/2025 Primary osteoarthritis of left hip 04/26/2025 Osteoarthritis of lumbar spine with myelopathy 1 Testosterone deficiency in male 04/25/2025 Assessment & Plan (04/25/2025 12:05 PM EDT): Continue with testosterone injections per urology TMJ (temporomandibular joint disorder) Assessment & Plan (04/25/2025 12:05 PM EDT): X-rays ordered. May consider referral to OMFS Orders: XR TMJ Open and Closed bilat; Future Coronary artery calcification 11/13/2024 Assessment & Plan (04/25/2025 12:05 PM EDT): Continue aspirin daily and statin Primary osteoarthritis of right hip 11/07/2024 Femoroacetabular impingement of right hip 2024 Asthma 08/30/2024 Cataract 08/30/2024 Chondromalacia of patella 08/30/2024 Overview (08/30/2024): nEOS Background diabetic retinopathy 06/30/2024 Assessment & Plan (06/30/2024 6:29 PM EST): Continue DM management. F/u with endocrinology. Up to date with diabetic eye exam done 12/03/23 Mild depression 06/30/2024 Assessment & Plan (06/30/2024 6:29 PM EST): Declines treatment for now. No SI/HI Monocytosis 06/30/2024 Ventral hernia 01/08/2023 Chronic pain of both knees 10/19/2022 Assessment & Plan (06/30/2024 6:29 PM EST): Continue follow up with orthopedics at [facility]-Dr. Quintero . He is s/p Right knee, revision quadriceps repair with allograft augmentation on 09/30/2023; right knee arthroscopy, lateral meniscectomy, 05/02/2024 Stasis dermatitis of both legs 10/19/2022 Chronic obstructive pulmonary disease 04/20/2022 Assessment & Plan (06/30/2024 6:29 PM EST): Continue daily inhalers and pulm follow up Obstructive sleep apnea syndrome 03/24/2022 Overview (05/17/2024): SMS Treatment Polysomnogram: Date ; Wt 270#; BMI 33.75; SE 61%; SM 62%; REM 18%; CPAP @ 6: AHI 0.2, REM AHI 0, Central apneas 0; Obstructive apneas 0; Mixed apneas 0; hypopneas 1; average oxygen saturation 91% (lowest 87%); [facility] Polysomnogram: Date ; Wt [...] 6cm switched from 8-12cm. Assessment & Plan (04/25/2025 12:05 PM EDT): Continue CPAP nightly Assessment & Plan (06/30/2024 6:29 PM EST): Continue CPAP nightly Steatosis of liver 03/24/2022 Overview (05/17/2024): workup Assessment & Plan (04/25/2025 12:05 PM EDT): Will update CMP Orders: Comprehensive metabolic panel; Future Sensorineural hearing loss (SNHL) of both ears 0 03/24/2022 Dermatochalasis of left upper eyelid 03/24/2022 Benign prostatic hyperplasia 03/24/2022 Assessment & Plan (04/25/2025 12:05 PM EDT): Continue urology follow-up. Continue terazosin 5 mg daily Assessment & Plan (11/06/2024 12:04 PM EDT): [...] Chronic pain syndrome 02/05/2022 Assessment & Plan (04/25/2025 12:05 PM EDT): Continue hempVana cream for all his chronic multiple joint pain which helps. Also takes #2 OTC ibuprofen a day Assessment & Plan (06/30/2024 6:29 PM EST): Continue with hempVana cream . He has tried tramadol, gabapentin, pregabalin and amitriptyline, duloxetine in the past which all caused side effects Essential (primary) hypertension 02/05/2022 Overview (08/30/2024): Assessment & Plan (04/25/2025 12:05 PM EDT): Well controlled Continue losartan 50mg QDAY Assessment & Plan (06/30/2024 6:29 PM EST): BP is stable. Continue losartan Orders: losartan (COZAAR) 50 mg tablet; Take 1 tablet (50 mg total) by mouth 1 (one) time each day. Obesity 02/05/2022 Diabetic polyneuropathy asso ciated with type 2 diabetes mellitus 02/05/2022 Assessment & Plan (04/25/2025 12:05 PM EDT): Continue hempVana cream for all his chronic multiple joint pain which helps. Also takes #2 OTC ibuprofen a day Assessment & Plan (06/30/2024 6:29 PM EST): Continue with hempVana cream . Orders: Hemoglobin A1c; Future Erectile dysfunction 02/05/2022 Assessment & Plan (04/25/2025 12:05 PM EDT): Continue sildenafil as needed Orders: sildenafiL (VIAGRA) 100 mg tablet; Take 1 tablet (100 mg total) by mouth if needed for erectile dysfunction. Take one tablet 30 mins to an hour prior to sexual activity Assessment & Plan (11/06/2024 12:04 PM EDT): Requesting paper prescription for Viagra which is printed for him Orders: sildenafiL (VIAGRA) 100 mg tablet; Take 1 tablet (100 mg total) by mouth if needed for erectile dysfunction. Take one tablet 30 mins to an hour prior to sexual activity Type 2 diabetes mellitus with microalbuminuria 0 11/20/2021 Assessment & Plan (04/25/2025 12:05 PM EDT): Continue endocrinology follow up Continue trulicity 4.5mg weekly and insulin regular U-500 200 units twice daily Due for labs which are ordered Orders: Microalbumin creatinine urine ratio; Future Hemoglobin A1c; Future Comprehensive metabolic panel; Future Ambulatory referral to Ophthalmology; Future Assessment & Plan (09/28/2024 2:17 PM EDT): Still poorly controlled. Continue follow-up with Dr. Dukes. Continue Trulicity 4.5 mg weekly and insulin regular U-500 200 units twice daily Orders: Hemoglobin A1c; Future Assessment & Plan (06/30/2024 6:29 PM EST): Continue Humulin U500 based on glucose readings Continue Trulicty 4.5mg weekly(he has supply to last till Jul directly from [employer]) He has reestablished care with digital sales assistant-Dr. Waters but states that he will still keep his upcoming appointment with Dr. Dukes in July. Trying to see what provider can best help him manage his diabetes Orders: Hemoglobin A1c; Future Mixed hyperlipidemia 07/09/2021 Overview (08/30/2024): Assessment & Plan (04/25/2025 12:05 PM EDT): Continue rosuvastatin 40 mg daily Orders: Lipid panel with reflex to direct LDL; Future Assessment & Plan (06/30/2024 6:29 PM [...] Encounters Date Type Department Care Team Description 06/19/2025 10:25 AM EST - 06/19/2025 11:59 PM EST Hospital Encounter CT Scan - [address] [phone] Left flank pain Discharge Disposition: Home or Self Care 06/19/2025 10:05 AM EST Lab Draw Station - [address] Left flank pain; Monocytosis 06/19/2025 9:30 AM EST Office Visit Adult Medicine [facility] - [address] [phone] Bonny Morton PA Left flank pain (Primary Dx); Hematuria, unspecified type 06/19/2025 Results Follow-Up [address] [phone] Nicolle Pereira [place] 06/18/2025 Telephone Adult [address] [phone] Roby Romero MD 06/18/2025 Telephone Pulmonology [address] [phone] Juhi Snow NP 05/01/2025 Telephone Pulmonology [facility] [address] [phone] Angeline Corley [place] 04/30/2025 9:45 AM EST Office Visit Pulmonology [address] [phone] Juhi Snow NP Chronic obstructive pulmonary disease, unspecified COPD type (CMS/HCC V24, CMS/HCC V28) (Primary Dx); Mild intermittent asthma, unspecified whether complicated; Obstructive sleep apnea syndrome; Obesity due to excess calories with serious comorbidity, unspecified class 04/26/2025 9:15 AM EDT Lab Draw [address] Mixed hyperlipidemia; Type 2 diabetes mellitus with microalbuminuria (CMS/HCC V24, CMS/HCC V28); Steatosis of liver 04/26/2025 Results Follow-Up [address] [phone] Roby Romero MD 04/25/2025 11:19 AM EDT - 04/25/2025 11:59 PM EDT Hospital Encounter XRAY [address] [phone] TMJ (temporomandibular joint disorder) Discharge Disposition: Home or Self Care 04/25/2025 10:53 AM EDT - 04/25/2025 11:59 PM EDT [facility] [address] [place], [place] [phone] Lumbar sprain, subsequent encounter Discharge Disposition: Home or Self Care 04/25/2025 10:53 AM EDT - 04/25/2025 11:59 PM EDT [facility] [address] [place] [address] Left hip pain Discharge Disposition: Home or Self Care 04/25/2025 9:45 AM EDT Office Visit Adult Medicine [address] [phone] Roby Romero MD Type 2 diabetes mellitus with microalbuminuria (CMS/HCC V24, CMS/HCC V28) (Primary Dx); Diabetic polyneuropathy associated with type 2 diabetes mellitus (CMS/HCC V24, CMS/HCC V28); Essential (primary) hypertension; Mixed hyperlipidemia; Obstructive sleep apnea syndrome; Steatosis of liver; Benign prostatic hyperplasia with lower urinary tract symptoms, symptom details unspecified; TMJ (temporomandibular joint disorder); Lumbar sprain, subsequent encounter; Left hip pain; Erectile dysfunction, unspecified erectile dysfunction type; Chronic pain syndrome; Coronary artery calcification; Need for prophylactic vaccination and inoculation against influenza; Testosterone deficiency in male from Last 3 Months Immunizations Immunization Administration Dates Next Due H1N1 Inj Preservative Free 06/18/2009 Hepatitis A Adult (Havrix; V aqta) 19yo and older 10/24/2013,07/25/2013 Hepatitis B ([place]-I-Qdsph , Recombivax HB-Adult) 19yo and older 10/24/2013,07/25/2013 Hepatitis B Pediatric (Enger ix B; Recombivax HB) to less than 20 yo 10/24/2013 Influenza trivalent, 0.5mL ( Fluad) 65yo and older 04/25/2025,04/12/2023 Influenza trivalent, 0.5mL, preservative free (Fluarix; FluLaval; [...] apnea : On CPA P Obesity Seizures ([facility] V24, [facility] V28) Type 2 diabetes mellitus wit h microalbuminuria ([facility] V24, [facility] V28) 11/20/2021 Family History Medical [...] care for your loved ones. For example, child's nurse or elderly care for an older adult? [...] PM EDT Sexual Orientation Not on file Last Filed Vital Signs Vital Sign Reading Time Taken Comments Blood Pressure 117/68 06/19/2025 9:17 AM EST Pulse 68 06/19/2025 9:17 AM EST Temperature 36.1 C (97 F) 06/19/2025 9:17 AM EST Respiratory Rate 16 06/19/2025 9:17 AM EST Oxygen Saturation 96% 04/30/2025 9:36 AM EST Inhaled Oxygen Concentration - - Weight 131 kg (288 lb) 06/19/2025 9:17 AM EST Height 190.5 cm (6' 3 ) 06/19/2025 9:17 AM EST Body Mass Index 36 06/19/2025 9:17 AM EST Plan of Treatment Upcoming Encounters Date Type Department Care Team (Late st Contact Info) Description 07/26/2025 10:30 AM EST Office Visit Adult Medicine [facility] [address] [place] [phone] Bonny Morton PA [address] [place] [address] 08/23/2025 11:00 AM EST Office Visit [facility] Hematology Oncology [address] [place] [phone] Dick Lim MD [address] [place] [phone] 04/30/2026 11:00 AM EST Office Visit Pulmonology [facility] 175 [facility] [address] [place] [phone] Juhi Snow, MIRIAM [address] [place] [phone] Health Maintenance Due Date Last Done Comments Drug Screen 1955 Non-Opioid Controlled Substance Agreement 1955 RSV Immunization Adult Patients (1 - Risk 50-74 years 1-dose series) 2007 Zoster Vaccines (1 of 2) 2007 Diabetes: Annual Foot Exam 08/13/2024 08/13/2023 Diabetes: Annual Retina Eye Exam 12/02/2024 12/03/2023 COVID-19 Vaccine ( season) 2025 05/06/2024, 04/20/2022, 10/30/2021, Additional history exists Social Influencers of Health Screening 06/27/2025 06/27/2024 Medicare Annual Wellness Visit 06/30/2025 06/30/2024 Lung Cancer Screening (Low Dose CT) 09/12/2025 09/12/2024 Diabetes: Blood Sugar Control Test (HGBA1C) 10/25/2025 04/26/2025, 09/28/2024, 06/30/2024, Additional history exists Diabetes: Annual Urine Albumin-Creatinine Ratio (uACR) 04/26/2026 04/26/2025, 11/26/2023, 06/11/2023, Additional history exists Diabetes: Annual GFR (Glomerular Filtration Rate) 06/19/2026 06/19/2025, 04/26/2025, 12/07/2024, Additional history exists Falls Risk Assessment 06/19/2026 06/19/2025 , 04/25/2025, 09/12/2024, Additional history exists Hypertension/CHF/CAD Annual BMP Blood Test 06/19/2026 06/19/2025, 04/26/2025, 12/07/2024, Additional history exists Cholesterol Screening (Lipid Panel) 04/26/2030 04/26/2025, 03/29/2024, 03/29/2024 DTaP,Tdap,and Td Vaccines (4 - Td or Tdap) 12/06/2030 12/06/2020, 10/09/2009, 07/28/1999 Colorectal Cancer Screening: Colonoscopy 10/31/2033 11/01/2023 Hepatitis A Vaccines Discontinued 10/24/2013, 07/25/19 14 Hepatitis B Vaccines Discontinued 10/24/2013, 10/24/2013, 07/25/2013 Hepatitis C Screening Completed 07/21/2022 Pneumococcal Vaccine: 50+ Years Completed 10/19/2022, 07/28/2007 Abdominal Aortic Aneurysm (AAA) Screen Completed 07/04/2024 Influenza Vaccine Completed 04/25/2025, , 04/12/2023, Additional history exists Depression Screening Completed 06/19/2025 HIB Vaccines Aged Out No longer eligi [...] 06/19/2025 10:36 AM EST Left flank pain CBC WITH AUTO DIFFERENTIAL Routine 06/19/2025 10:14 AM EST Left flank pain LACTATE DEHYDROGENASE Routine 06/19/2025 10:14 AM EST Monocytosis CBC AND DIFFERENTIAL Routine 06/19/2025 10:14 AM EST Left flank pain COMPREHENSIVE METABOLIC PANEL Routine 06/19/2025 10:14 AM EST Left flank pain POC URINE NON-AUTO W/O MICRO Routine 06/19/2025 9:37 AM EST Left flank pain Hematuria, unspecified type CULTURE URINE Routine 06/19/2025 9:36 AM EST Left flank pain Hematuria, unspecified type COMPREHENSIVE METABOLIC PANEL Routine 04/26/2025 9:21 AM EDT Type 2 diabetes mellitus with microalbuminuria (CMS/HCC V24, CMS/HCC V28) Steatosis of liver HEMOGLOBIN A1C Routine 04/26/2025 9:21 AM EDT Type 2 diabetes mellitus with microalbuminuria (CMS/HCC V24, CMS/HCC V28) MICROALBUMIN CREATININE URINE RATIO Routine 04/26/2025 9:21 AM EDT Type 2 diabetes mellitus with microalbuminuria (CMS/HCC V24, CMS/HCC V28) LIPID PANEL WITH REFLEX TO DIRECT LDL Routine 04/26/2025 9:21 AM EDT Mixed hyperlipidemia XR TMJ OPEN AND CLOSED BILAT Routine 04/25/2025 11:34 AM EDT TMJ (temporomandibular joint disorder) XR LUMBAR SPINE 4+ VIEWS Routine 04/25/2025 11:12 AM EDT Lumbar sprain, subsequent encounter XR HIP 2-3 VIEWS LEFT Routine 04/25/2025 11:12 AM EDT Left hip pain CT LUNG SCREENING Routine 09/12/2024 11: 36 AM EDT Ex-smoker Encounter for screening for lung cancer ABDOMEN AORTIC ANEURYSM SCREENING Routine 07/04/2024 8:59 AM EST Encounter for abdominal aortic aneurysm (AAA) screening DIABETES EYE EXAM Routine 12/03/2023 COLONOSCOPY Routine 11/01/2023 DIABETES FOOT EXAM Routine 08/13/2023 HEPATITIS C SCREENING Routine 07/21/2022 from Last 3 Months or Most Recently Relevant to Health Maintenance Results * CT Abdomen Pelvis wo Contrast [...] Signed Date: 06/19/2025 11:51 ET Workstation ID: [id number] Transcribed By: Self Edit Transcribed Date: 06/19/2025 [...] Signed Date: 06/19/2025 11:51 ET Workstation ID: [id number] Transcribed By: Self Edit Transcribed Date: 06/19/2025 11:30 ET us Bonny DALAL IMG CT PROCEDURES Final Resul t * (ABNORMAL) CBC auto differential (06/19/2025 10:14 AM EST) WBC 13.5(H) 4.8 - 10.8 K/mcL LAB HEMETOLOGY METHOD 06/19/2025 12:28 PM [facility] RBC 5.20 4.50 - 5.50 M/mcL LAB HEMETOLOGY METHOD 06/19/2025 12:28 PM [facility] Hemoglobin 15.8 13.5 - 17.5 g/dL LAB HEMETOLOGY METHOD 06/19/2025 12:28 PM [facility] Hematocrit 49.0 42.0 - 54.0 % LAB HEMETOLOGY METHOD 06/19/2025 12:28 PM [facility] MCV 94.4 79.0 - 98.0 FL LAB HEMETOLOGY METHOD 06/19/2025 12:28 PM [facility] MCH 30.4 27.0 - 32.0 pcg LAB HEMETOLOGY METHOD 06/19/2025 12:28 PM [facility] MCHC 32.2 32.0 - 37.0 g/dL LAB HEMETOLOGY METHOD 06/19/2025 12:28 PM [facility] RDW 13.7 11.0 - 15.0 % LAB HEMETOLOGY METHOD 06/19/2025 12:28 PM [facility] Platelets 222 130 - 400 K/mcL LAB HEMETOLOGY METHOD 06/19/2025 12:28 PM [facility] MPV 12.4(H) 7.0 - 11.0 FL LAB HEMETOLOGY METHOD 06/19/2025 12:28 PM [facility] NRBC 0.0 <1.0 % LAB HEMETOLOGY METHOD 06/19/2025 12:28 PM [facility] NRBC Absolute 0.00 <0.10 K/mcL LAB HEMETOLOGY METHOD 06/19/2025 12:28 PM [facility] Neutrophils Relative 75.2 % LAB HEMETOLOGY METHOD 06/19/2025 12:28 PM [facility] Lymphocytes Relative 14.6 % LAB HEMETOLOGY METHOD 06/19/2025 12:28 PM [facility] Monocytes Relative 8.5 % LAB HEMETOLOGY METHOD 06/19/2025 12:28 PM [facility] Eosinophils Relative 0.7 % LAB HEMETOLOGY METHOD 06/19/2025 12:28 PM [facility] Basophils Relative 0.4 % LAB HEMETOLOGY METHOD 06/19/2025 12:28 PM [facility] Immature Granulocytes Relative 0.6 % LAB HEMETOLOGY METHOD 06/19/2025 12:28 PM [facility] Neutrophils Absolute 10.13(H) 1.50 - 7.00 K/mcL LAB HEMETOLOGY METHOD 06/19/2025 12:28 PM [facility] Lymphocytes Absolute 1.96 1.00 - 5.00 K/mcL LAB HEMETOLOGY METHOD 06/19/2025 12:28 PM [facility] Monocytes Absolute 1.14(H) 0.20 - 1.00 K/mcL LAB HEMETOLOGY METHOD 06/19/2025 12:28 PM [facility] Eosinophils Absolute 0.09 0.00 - 0.50 K/mcL LAB HEMETOLOGY METHOD 06/19/2025 12:28 PM [facility] Basophils Absolute 0.06 0.00 - 0.20 K/mcL LAB HEMETOLOGY METHOD 06/19/2025 12:28 PM EST [facility] Immature Granulocytes Absolute 0.08(H) 0.00 - 0.03 K/mcL LAB HEMETOLOGY METHOD 06/19/2025 12:28 PM [facility] Blood Venous blood specimen / Unknown Venipuncture / Unknown 06/19/2025 10:14 AM EST 06/19/2025 10:14 AM EST Bonny DALAL LAB BLOOD ORDERABLES Final Re sult Performing Organization Address City/[facility]/ZIP Co de Phone Number [facility] [address] [place] [address], [place] [phone] * Lactate dehydrogenase (06/19/2025 10:14 AM EST) LDH 157 120 - 246 unit/L 06/19/2025 12:50 PM [facility] Blood Venous blood specimen / Unknown Venipuncture / Unknown 06/19/2025 10:14 AM EST 06/19/2025 10:14 AM EST Dick Lim MD LAB BLOOD ORDERABLE S Final Result Performing Organization Address [facility]/ZIP Co de Phone Number [facility] [address] [place] [address], [place] [phone] * (ABNORMAL) Comprehensive metabolic panel (06/19/2025 10:14 AM EST) Only the most recent of2 resultswithin the time period is included. Sodium 139 133 - 145 mmol/L 06/19/2025 12:50 PM EST [facility] Potassium 4.6 3.5 - 5.5 mmol/L 06/19/2025 12:50 PM [facility] Chloride 100 96 - 110 mmol/L 06/19/2025 12:50 PM EST [facility] CO2 29 21 - 32 mmol/L 06/19/2025 12:50 PM [facility] Anion Gap 10 3 - 11 06/19/2025 12:50 PM [facility] Glucose 295(H) 70 - 100 mg/dL 06/19/2025 12:50 PM [facility] BUN 14 5 - 25 mg/dL 06/19/2025 12:50 PM [facility] Creatinine 1.23 0.70 - 1.30 mg/dL 06/19/2025 12:50 PM [facility] eGFR 64 >=60 mL/min/1. 73m2 06/19/2025 12:50 PM [facility] Comment:Calculation based on the Chronic Kidney Disease Epidemiology Collaboration (CKD-EPI) equation refit without adjustment for race. BUN/Creatinine Ratio 11.4 06/19/2025 12:50 PM [facility] Calcium 8.9 8.5 - 10.5 mg/dL 06/19/2025 12:50 PM [facility] AST (SGOT) 14 10 - 42 unit/L 06/19/2025 12:50 PM [facility] ALT (SGPT) 24 10 - 60 unit/L 06/19/2025 12:50 PM [facility] Alkaline Phosphatase 77 42 - 121 unit/L 06/19/2025 12:50 PM [facility] Total Protein 6.3 6.0 - 8.0 g/dL 06/19/2025 12:50 PM [facility] Albumin 4.1 3.2 - 5.0 g/dL 06/19/2025 12:50 PM [facility] Total Bilirubin 0.9 0.0 - 1.4 mg/dL 06/19/2025 12:50 PM [facility] Blood Venous blood specimen / Unknown Venipuncture / Unknown 06/19/2025 10:14 AM EST 06/19/2025 10:14 AM EST us Bonny DALAL LAB BLOOD ORDERABLES Final Re sult Performing Organization Address City/[facility]/ZIP Co de Phone Number [facility] [address] [place] [address], [place] [phone] * (ABNORMAL) POC Urine Non-Auto W/O Micro (06/19/2025 9:37 AM EST) Glucose UA POC Negative Negative, Trace mg/dL Leukocytes UA POC Moderate(A) Negative Nitrite UA POC Negative Negative Urobilinogen UA POC 0.2 E.U./dL 0.2 E.U./dL, 1.0 E.U./dL, 8 , Unable to interpret due to interfering substances mg/dL Protein UA POC 30(A) Negative mg/dL PH UA POC 6.0 Blood UA POC Large(A) Negative Specific [place] UA POC 1.020 Ketones UA POC Trace(A) Negative Bilirubin UA POC Small(A) Negative Appearance UA POC Clear Clear Color UA POC [place](A) Light Yellow, Yellow, Dark Yellow GLUCOSE POC Negative(A) Negative, Trace mg/dL Urine Urine specimen obtained by clean catch procedure / Unknown 06/19/2025 9:37 AM EST us Bonny DALAL POINT OF CARE TEST ENTER/EDIT ORDERABLES Final Result * Culture urine (06/19/2025 9:36 AM EST) Pathologist [facility] Culture, Urine No growth 06/20/2025 10:24 AM EST [facility] Urine Urine specimen obtained by clean catch procedure / Unknown Non-blood Collection / Unknown 06/19/2025 9:36 AM EST 06/19/2025 9:36 AM EST us Bonny DALAL LAB MICROBIOLOGY - GENERAL OR DERABLES Final Result Performing Organization Address City/[facility]/ZIP Co de Phone Number [facility] [address] [place] [address], [place] [phone] * (ABNORMAL) Lipid panel with reflex to direct LDL (04/26/2025 9:21 AM EDT) Cholesterol 103 0 - 200 mg/dL LAB CHEMISTRY METHOD 04/26/2025 12:50 PM EDT [facility] Triglycerides 159(H) 0 - 150 mg/dL LAB CHEMISTRY METHOD 04/26/2025 12:50 PM EDT [facility] HDL 48 >=40 mg/dL LAB CHEMISTRY METHOD 04/26[facility]2025 12:[facility] LDL Calculated 23 0 - 100 mg/dL LAB CHEMISTRY METHOD 04/26/2025 12:50 PM EDT [facility] Comment:Estimated LDL Calcul ated using equation: Total cholesterol - HDL cholesterol - (Triglycerides/5) VLDL Cholesterol Mundo 31.8 mg/dL LAB CHEMISTRY METHOD 04/26/2025 12:50 PM T [facility] Non HDL Chol. (LDL+VLDL) 55 <145 mg/dL LAB CHEMISTRY METHOD 04/26/2025 12:50 PM T [facility] Chol/HDL Ratio 2.1 0.0 - 4.4 LAB CHEMISTRY METHOD 04/26/2025 12:50 PM T [facility] Blood Venous blood specimen / Unknown Venipuncture / Unknown 04/26/2025 9:21 AM EDT 04/26/2025 9:21 AM EDT Roby Romero MD LAB BLOOD ORDERA BLES Final Result [facility] [address] [place] [address], [place] [phone] * (ABNORMAL) Microalbumin creatinine urine ratio (04/26/2025 9:21 AM EDT) Creatinine, Urine 138.0 mg/dL LAB CHEMISTRY METHOD 04/26/2025 1:46 PM EDT [facility] Microalb, Ur 168.0(H) 0.0 - 29.0 mg/L LAB CHEMISTRY METHOD 04/26/2025 1:46 PM EDT [facility] Microalb/Crea t Ratio 122(H) <30 mg/g creat LAB CHEMISTRY METHOD 04/26/2025 1:46 PM EDT [facility] Urine Urine specimen obtained by clean catch procedure / Unknown Non-blood Collection / Unknown 04/26/2025 9:21 AM EDT 04/26/2025 9:21 AM EDT Roby Romero MD LAB URINE ORDERA BLES Final Result Performing Organization Address City/[facility]/ZIP Co de Phone Number [facility] [address] [place] [address], [place] [phone] * (ABNORMAL) Hemoglobin A1c (04/26/2025 9:21 AM EDT) Hemoglobin A1C 8.5(H) <6.5 % LAB CHEMISTRY METHOD 04/26/2025 1:27 PM EDT [facility] Mean Bld Glu Estim. 197 mg/dL LAB CHEMISTRY METHOD 04/26/2025 1:27 PM EDT [facility] Blood Venous blood specimen / Unknown Venipuncture / Unknown 04/26/2025 9:21 AM EDT 04/26/2025 9:21 AM EDT Roby Romero MD LAB BLOOD ORDERA BLES Final Result [facility] [address] [place] [address], [place] [phone] * XR TMJ Open and Closed bilat (04/25/2025 11:34 AM EDT) Anatomical Region Laterality Modality Head and Neck Bilateral Radiographic Audrey ging 04/26/2025 4:59 PM EDT Impressions 04/26/2025 5:00 PM EDT Normal exam. -------- FINAL REPORT -------- Dictated By: Ashtyn Bertrand Dictated Date: 04/26/2025 16:59 ET Assigned Physician: Ashtyn Bertrand Reviewed and Electronically Signed By: Ashtyn Bertrand Signed Date: 04/26/2025 17:00 ET Workstation ID: [id number] Transcribed By: Self Edit Transcribed Date: 04/26/2025 16:59 ET Narrative 04/26/2025 5:00 PM EDT TMJ's-5 Views (including open and closed mouth views) HISTORY: TMJ joint disorder. FINDINGS: The zygomatic arches are intact. There is no fracture or degenerative change. There is normal location of the mandibular condyles on the open and closed mouth views bilaterally. Procedure Note Ashtyn Bertrand MD - 04/26/2025 TMJ's-5 Views (including open and closed mouth views) HISTORY: TMJ joint disorder. FINDINGS: The zygomatic arches are intact. There is no fracture ordegenerative change. There is normal location of the mandibular condyles on the open and closedmouth views bilaterally. IMPRESSION: Normal exam. -------- FINAL REPORT -------- Dictated By: Ashtyn Bertrand Dictated Date: 04/26/2025 16:59 ET Assigned Physician: Ashtyn Bertrand Reviewed and Electronically Signed By: Ashtyn Bertrand Signed Date: 04/26/2025 17:00 ET Workstation ID: [id number] Transcribed By: Self Edit Transcribed Date: 04/26/2025 16:59 ET Roby Romero MD IMG XR PROCEDURE S Final Result * XR Lumbar Spine 4+ Views (04/25/2025 11:12 AM EDT) Anatomical Region Laterality Modality Spine, L-spine Radiographic Audrey ging 04/25/2025 4:12 PM EDT Impressions 04/25/2025 4:13 PM EDT Grade 1 anterolisthesis of L5 on S1 with pars defects which are chronic. -------- FINAL REPORT -------- Dictated By: Ave Kline Dictated Date: 04/25/2025 16:12 ET Assigned Physician: Ave Kline Reviewed and Electronically Signed By: Ave Kline Signed Date: 04/25/2025 16:13 ET Workstation ID: [id number] Transcribed By: Self Edit Transcribed Date: 04/25/2025 16:12 ET Narrative 04/25/2025 4:13 PM EDT HISTORY: lumbar sprain TECHNIQUE: 4 views of the lumbar spine COMPARISON: None FINDINGS: Vertebral body height is maintained. Decreased disc height at T11-T12, T12-L1, L5-S1 with endplate sclerosis. There is grade 1 anterolisthesis of L5 on S1 with pars defects which are chronic. No significant neuroforaminal stenosis is present. The sacroiliac joints are patent. Surgical marcos overlying the right upper quadrant. Moderate stool throughout the colon. Procedure Note Ave Kline MD - 04/25/2025 HISTORY: lumbar sprain TECHNIQUE: 4 views of the lumbar spine COMPARISON: None FINDINGS: Vertebral body height is maintained. Decreased disc height at T11-T12,T12-L1, L5-S1 with endplate sclerosis. There is grade 1 anterolisthesis ofL5 on S1 with pars defects which are chronic. No significantneuroforaminal stenosis is present. The sacroiliac joints are patent.Surgical marcos overlying the right upper quadrant. Moderate stoolthroughout the colon. IMPRESSION: Grade 1 anterolisthesis of L5 on S1 with pars defects which are chronic. -------- FINAL REPORT -------- Dictated By: Ave Kline Dictated Date: 04/25/2025 16:12 ET Assigned Physician: Ave Kline Reviewed and Electronically Signed By: Ave Kline Signed Date: 04/25/2025 16:13 ET Workstation ID: [id number] Transcribed By: Self Edit Transcribed Date: 04/25/2025 16:12 ET Roby Romero MD IMG XR PROCEDURE S Final Result * XR Hip 2-3 Views Left (04/25/2025 11:12 AM EDT) Anatomical Region Laterality Modality Lower Extremities, Hip Left Radiograp hic Imaging 04/25/2025 4:10 PM EDT Impressions 04/25/2025 4:12 PM EDT No acute fracture or dislocation of the left hip. -------- FINAL REPORT -------- Dictated By: Ave Kline Dictated Date: 04/25/2025 16:10 ET Assigned Physician: Ave Kline Reviewed and Electronically Signed By: Ave Kline Signed Date: 04/25/2025 16:12 ET Workstation ID: [id number] Transcribed By: Self Edit Transcribed Date: 04/25/2025 16:10 ET Narrative 04/25/2025 4:12 PM EDT HISTORY: left hip pain TECHNIQUE: Frontal and lateral radiographs of the left hip.An AP radiograph of the pelvis was obtained to assess joint symmetry. COMPARISON: None FINDINGS: No fracture or dislocation is seen. The hip joint is well-maintained with normal alignment. The femoral head is well-seated within the acetabulum. Subchondral sclerosis at the pubic symphysis. Subchondral sclerosis of the superior acetabulum. Procedure Note Ave Kline MD - 04/25/2025 HISTORY: left hip pain TECHNIQUE: Frontal and lateral radiographs of the left hip.An APradiograph of the pelvis was obtained to assess joint symmetry. COMPARISON: None FINDINGS: No fracture or dislocation is seen. The hip joint is well-maintained withnormal alignment. The femoral head is well-seated within the acetabulum.Subchondral sclerosis at the pubic symphysis. Subchondral sclerosis of thesuperior acetabulum. IMPRESSION: No acute fracture or dislocation of the left hip. -------- FINAL REPORT -------- Dictated By: Ave Kline Dictated Date: 04/25/2025 16:10 ET Assigned Physician: Ave Kline Reviewed and Electronically Signed By: Ave Kline Signed Date: 04/25/2025 16:12 ET Workstation ID: [id number] Transcribed By: Self Edit Transcribed Date: 04/25/2025 16:10 ET Roby Romero MD IMG XR PROCEDURE [...] Signed Date: 09/12/2024 13:15 ET Workstation ID: [id number] Transcribed By: Self Edit Transcribed Date: 09/12/2024 13:04 ET Narrative 09/12/2024 1:15 PM EDT EXAMINATION: CT CHEST WITHOUT CONTRAST LUNG CANCER SCREENING, LOW DOSE CLINICAL INFORMATION: Lung cancer screening. Former smoker COMPARISON: Initial CT TECHNIQUE: Multidetector CT. Examination of the chest. Examination of the chest without IV contrast. Reformatting in the coronal and sagittal planes. Device: Swatchcloud VCT DLP: 189 mGy-cm CTDI: 4.83 Dose [...] in the coronal and sagittal planes. Device: ioSemanticspeSnaptiva VCT DLP: 189 mGy-cm CTDI: 4.83 Dose [...] -------- FINAL REPORT -------- Dictated By: Chauncey Ceils Dictated Date: 09/12/2024 13:04 ET Assigned Physician: Chauncey Celis Reviewed and Electronically Signed By: Chauncey Celis Signed Date: 09/12/2024 13:15 ET Workstation ID: [id number] Transcribed By: Self Edit Transcribed Date: 09/12/2024 13:04 ET Adalberto Bliss MD [facility] CT PROCEDURES Final Result [...] Signed Date: 07/04/2024 14:41 ET Workstation ID: [id number] Transcribed By: Self Edit Transcribed Date: 07/04/2024 [...] Signed Date: 07/04/2024 14:41 ET Workstation ID: [id number] Transcribed By: Self Edit Transcribed Date: 07/04/2024 14:40 ET Roby Romero MD [facility] [place] PROCEDURE S Final Result * Diabetes Eye Exam (12/03/2023) Diabetes: Annual Retina Eye Exam abstracted us Historical Provider HEALTH MAINTENANCE Final Result * Colonoscopy (11/01/2023) Colonoscopy no intepretation, abstracted Anatomical Region Laterality Modality Other [facility] Provider HEALTH MAINTENANCE Final Result * Diabetes Foot Exam (08/13/2023) Diabetes: Annual Foot Exam abstracted Result [facility] Provider HEALTH MAINTENANCE Final Result * Hepatitis C Screening (07/21/2022) Hepatitis C Screening abstracted [facility] Provider HEALTH MAINTENANCE Final Result from Last 3 Months or Most Recently Relevant to Health Maintenance Insurance MEDICARE [facility] Care Teams Crab Fisher Relationship Specialty Start Date End Date Roby Romero MD [address] [facility], [place] PCP - General Internal Medicine 02/02/22
--- OUTSIDE RECORDS SUMMARY | 2025-06-25 13:12 | XMS_ITS | Encounter Summary ---
Author Organization [facility] Address [address] [place] [phone] Phone Care Team Providers Care Ice Puller Name Role Phone Roby Romero MD Primary Care Pr ovider Encounter Details Date Type Department Care Team (Late st Contact Info) Description 09/30/2023 Procedure Pass [facility] PERIOPERATIVE DEPT [address] [place] [phone] Social History Tobacco Use Types Packs/Day Years [...] Description 07/06/2025 9:40 AM EST Office Visit [facility] Endocrinology [address] [address] Bridgette Arreola PA-C [address] [place] [address] 10/10/2025 10:20 AM EDT Office Visit [facility] Endocrinology [address] [address] Ana Dukes MD [address] [place] [address] 09/23/2026 9:00 AM EDT Office Visit [facility] Clinic [address] [place] [address] Lis Gonzalez [address] [place] [address], [address] [place] [address] [email or web address] documented as of this encounter Visit Diagnoses Not on filedocumented in this encounter Care Teams Ice Puller Relationship Specialty Start Date End Date Roby Romero MD [address] [place] [address] PCP - General Family Medicine 05/14/22 documented as of this encounter Additional Source Comments The information contained in this document represents components of the legal health record. It is not the complete legal health record.[facility]
--- OUTSIDE RECORDS SUMMARY | 2025-06-25 13:12 | XMS_ITS | Encounter Summary ---
Author Organization [facility] Address [address] [place] [address] Care Team Providers Care Ear Muff Assembler Name Role Phone Roby Romero MD Primary Care Pr ovider Encounter Details Date Type Department Care Team ([facility] Contact Info) Description 06/19/2025 Results Follow-Up Adult Medicine [address] [place] [phone] Nicolle Pereira [place] Social History Tobacco Use Types Packs/Day Years Used Date Smoking Tobacco: Former Cigarettes 1 49 1 974 - 3 Cigars Smokeless Tobacco: Current Comments:Uses Cigars sometim [...] your loved ones. For example, early childhood assistant or elderly care for an older adult? [...] 10:30 AM EST Office Visit Adult Medicine [address] [phone] Bonny Morton PA [address] [place] [address] 08/23/2025 11:00 AM EST Office Visit [facility] Hematology Oncology [address] [place] [address] Dick Lim MD [address] [place] [address] 04/30/2026 11:00 AM EST Office Visit Pulmonology - [place] 175 [facility] [address] [place] [phone] Juhi Snow, MIRIAM [address] [place] [phone] documented as of this encounter Visit Diagnoses Diagnosis Adrenal adenoma, unspecified laterality- Primary documented in this encounter Additional Health Concerns Assessment Noted Time PHQ-9 Depression Total Score: 11 024 9:03 PM EST documented as of this encounter Care Teams Ear Muff Assembler Relationship Specialty Start Date End Date Roby Romero MD [address] [place], [place] PCP - General Internal Medicine 02/02/22 documented as of this encounter
--- OUTSIDE RECORDS SUMMARY | 2025-06-25 13:12 | XMS_ITS | Encounter Summary ---
Author Organization [facility] Address [address] [place] [address] Phone Care Team Providers Care Motorcycle Police Name Role Phone Roby Romero MD Primary Care Pr ovider Encounter Details Date Type Department Care Team (Late st Contact Info) Description 05/02/2024 Procedure Pass [facility] [address] [place] [address] Social History Tobacco Use Types Packs/Day Years [...] Description 07/06/2025 9:40 AM EST Office Visit [facility] Endocrinology [address] [address] Bridgette Arreola PA-C [address] [place] [address] 10/10/2025 10:20 AM EDT Office Visit [facility] Endocrinology Clinic [address] [place] [address] Ana Dukes MD [address] [place] [address] [address] [place] [address] 09/23/2026 9:00 AM EDT Office Visit [facility] Primary Care Clinic [address] [place] [address] Lis Gonzalez [address] [place] [address], [address] [place] [address] [email or web address] documented as of this encounter Visit Diagnoses Not on filedocumented in this encounter Care Teams Motorcycle Police Relationship Specialty Start Date End Date Roby Romero MD [address] [place] [address] PCP - General Family Medicine 05/14/22 documented as of this encounter Additional Source Comments The information contained in this document represents components of the legal health record. It is not the complete legal health record.[facility]
--- OUTSIDE RECORDS SUMMARY | 2025-06-25 13:12 | XMS_ITS | Encounter Summary ---
Author Organization [facility] Address [address] [place] [address] Care Team Providers Care Electrical Transmission Engineer Name Role Phone Roby Romero MD Primary Care Pr ovider Reason for Visit * Reason Onset Date Comments Durable Medical Equipment 06/18/2025 Encounter Details Date Type Department Care Team ([facility] st Contact Info) Description 06/18/2025 Telephone Pulmonology - [place] 175 [facility] [address] [place] [address] Juhi Snow, MIRIAM [address] [place] [address] Social History Tobacco Use Types Packs/Day Years [...] do you feel lonely or isolated from ose around you? Rarely 06/27/2024 Food Risk [...] care for your loved ones. For example, childcare center director or elderly care for an older adult? [...] as of this encounter Progress Notes * Angeline Yi MA - 06/20/2025 9:41 AM EST [facility] * Angeline Yi MA - 06/20/2025 8:02 AM EST Can you please place new cpap order * Juhi Snow NP - 06/19/2025 3:50 PM EST I saw patient on 04/30/2025 and placed order. Please send this order with my note for that appointment it is less then 3 months therefore should work. * Angeline Yi MA - 06/19/2025 1:56 PM EST They didn't received any order could you please update or place new order to be sent to [facility] * Juhi Snow NP - 06/18/2025 6:16 PM EST Please find out from [facility] if they received order from April since it good for whole year. If they did not please resend. * Sangeeta Hussein - 06/18/2025 9:05 AM EST Patient called and requested that we send over a prescription to [facility] for his CPAP supplies. He wants it sent by the end of the year to avoid the copay. documented in this encounter Plan of Treatment Upcoming Encounters Date Type Department Care Team (Late st Contact Info) Description 07/26/2025 10:30 AM EST Office Visit Adult Medicine [address] [phone] Bonny Morton PA [address] [place] [address] 08/23/2025 11:00 AM EST Office Visit [facility] Hematology Oncology [address] [place] [phone] Marga-Dick Fang MD [address] [place] [phone] 04/30/2026 11:00 AM EST Office Visit Pulmonology - [place] 175 [facility] 200 [place] [phone] Juhi Snow, MIRIAM [address] [place] [phone] documented as of this encounter Visit Diagnoses Diagnosis Obstructive sleep apnea syndrome- Primary Obstructive sleep apnea (adult) (pediatric) documented in this encounter Orders General Supply Count Last Ordered Date First Or dered Date CPAP DME 1 06/20/2025 documented in this encounter Additional Health Concerns Assessment Noted Time PHQ-9 Depression Total Score: 11 024 9:03 PM EST documented as of this encounter Care Teams Electrical Transmission Engineer Relationship Specialty Start Date End Date Roby Romero MD [address] [place], [place] PCP - General Internal Medicine 02/02/22 documented as of this encounter
--- OUTSIDE RECORDS SUMMARY | 2025-06-25 13:12 | XMS_ITS | Clinical Summary ---
Author Organization [facility] Address [address] [place] [id number] Phone Care Team Providers Care Addiction Therapist Name Role Phone Roby Romero MD Primary [...] lungs every 6 (six) hours as needed. 022 Active losartan (COZAAR) 50 MG tablet Take 50 mg by mouth. Active rosuvastatin (CRESTOR) 40 MG tablet 023 Active acetaminophen (TYLENOL) 500 MG tablet Take 2 tablets (1,000 mg total) by mouth every 8 (eight) hours. Do not take more than 4000mg in a 24 hour period. 024 Active sildenafiL (VIAGRA) 100 mg tablet Take 100 mg by mouth as needed. 025 Active DEXCOM G7 SENSOR DeviIndications :Type 2 diabetes mellitus with peripheral neuropathy 1 each by Miscellaneous route Every 10 Days. 9 each 3 Active insulin regular U-500 CONC (HUMULIN R, KWIKPEN) 500 unit/mL (3 mL) subcutaneous injection pen 200-240 units subcutaneously in the morning, 200-240 units in the evening, or as directed Active terazosin (HYTRIN) 5 MG capsule Take 5 mg by mouth nightly at bedtime. Active testosterone (ANDROGEL) 20.25 mg/1.25 gram (1.62 %) transdermal gel pump Apply 2 Applications topically daily. Active TRULICITY 4.5 mg/0.5 mL subcutaneous injection INJECT 4.5MG (0.5ML) UNDER THE SKIN ONCE A WEEK 6 mL Active dulaglutide (TRULICITY) 4.5 mg/0.5 mL subcutaneous injection Inject 0.5 mL (4.5 mg total) under the skin every 7 days. 6 mL 1 025 2024 Discontinued Active Problems Problem Noted Date Diagnosed Date [...] apnea syndrome 02/16/2023 02/16/2023 Overview (02/16/2023): epworth [id number] pewr studyCPAP 8cmAHI 20..6 refer CPAPrefer polysomnogram Steatosis of liver 02/16/2023 02/16/2023 Overview (02/16/2023): workup Stasis dermatitis of both legs 10/19/2022 Hypertension 09/11/2022 Assessment & Plan (04/19/2025 1:22 PM EDT): BP under reasonable control. Hyperlipidemia 09/11/2022 Type 2 diabetes mellitus with peripheral neuropa thy 09/11/2022 Assessment & Plan (04/19/2025 1:21 PM EDT): 69 yo man with longstanding Type 2 diabetes. Control has been suboptimal, overall improved, but deteriorates w/ steroid injections. No severe lows. Trending downward late afternoon/overnight. Reviewed appropriate timing of U-500 insulin in relation to meals. Advised he have snack w/ some carb/protein @ hs/late afternoon to help avoid lows & if persistent overnight, would lower dose of insulin prior to evening meal. Could shift to mounjaro, but cost prohibitive & no savings program, ozempic did not seem to work as well for him. To call or send in log with problems with glucose control. [facility] under good control. Will be having labs soon via PCP, appears to be due for umalb/creat. Assessment & Plan (01/04/2025 4:08 PM EDT): [...] his glucose levels. Up to date with ophtho. Sees podiatry. Reviewed recent labs Assessment & Plan (08/03/2024 4:56 PM EST): 69 yo man with longstanding Type 2 diabetes. Control has been suboptimal. No frequent or severe hypoglycemia. Does not meet criteria for traditional pump. Apparently [facility] received authorization for omnipod, but was expensive, [...] with glucose control. Up to date with opho. BP under good control. Chronic obstructive pulmonary disease 04/20/2022 Kidney stone 03/24/2022 Overview (08/03/2024): neg ct urogram Sensorineural hearing loss (SNHL) of both ears 0 03/24/2022 Asthma Long-term current use of inj ectable noninsulin antidiabetic medication superintendent terminal current use of insulin Encounters Date Type Department Care Team Description 06/17/2025 Refill [facility] [address] [place] [address] Bridgette Arreola PA-C Medication Refill 05/14/2025 Telephone [facility] [address] [place] [address] Grace Stone, RN Paperwork Question 05/07/2025 Orders Only [facility] [address] [place] [address] ProviderKeon MD 05/07/2025 Telephone [facility] [address] [place] [address] [facility] 05/02/2025 Telephone [facility] [address] [place] [address] Cindy Nesbitt [place] [facility] 04/19/2025 11:40 AM EDT Office Visit [facility] [address] [place] [address] Ana Dukes MD Type 2 diabetes mellitus with peripheral neuropathy (Primary Dx); Primary hypertension; detention current use of insulin; Long-term current use of injectable noninsulin antidiabetic medication from Last 3 Months Social History Tobacco [...] Sign Reading Time Taken Comments Blood Pressure 132/74 04/19/2025 11:54 AM EDT Pulse 95 04/19/2025 11:54 AM EDT Temperature 36.4 C (97.5 F) 05/02/2024 8:08 AM EST Respiratory Rate 28 05/02/2024 8:40 AM EST Oxygen Saturation 98% 04/19/2025 11: 54 AM EDT Inhaled Oxygen Concentration - - Weight 132.2 kg (291 lb 6.4 oz) 025 11:54 AM EDT Height 190.5 cm (6' 3 ) 04/19/2025 11:5 4 AM EDT Body Mass Index 36.42 04/19/2025 11:54 AM EDT Plan of Treatment Upcoming Encounters Date Type Department Care Team (Late st Contact Info) Description 07/06/2025 9:40 AM EST Office Visit [facility] [address] [place] [address] [place] [address] Bridgette Arreola PA-C [address] [place] [address] 10/10/2025 10:20 AM EDT Office Visit [facility] [address] [place] [address] Ana Dukes MD [address] [place] [id number] 09/23/2026 9:00 AM EDT Office Visit [facility] [address] [place] [address] Lis Gonzalez [address] [place] [address] [email or web address] Health Maintenance Due Date Last Done Comments DEPRESSION SCREENING 1969 HEPATITIS C SCREENING 1975 COLOGUARD 2002 COLONOSCOPY 2002 COLORECTAL CANCER SCREENING 2002 FIT TEST 2002 FOBT 2002 SIGMOIDOSCOPY 2002 VIRTUAL COLONOSCOPY 2002 RSV VACCINE (1 - Risk 50-74 years 1-dose series) 2007 ZOSTER VACCINES (1 of 2) 2007 PNEUMOCOCCAL VACCINES (50+ years) (2 of 2 - PCV) 07/28/2008 07/28/2007 ABDOMINAL AORTIC ANEURYSM (AAA) SCREENING 2022 DIABETIC EYE EXAM 09/11/2022 INFLUENZA VACCINE (#1) 2025 , 04/20/2022, 04/11/2021, Additional history exists COVID-19 VACCINE ( season) 2025 04/20/2022, 10/30/2021, 04/02/2021, Additional history exists HEMOGLOBIN A1C 04/04/2025 01/02/2025, 04/0 08/2024, 06/30/2024, Additional history exists LUNG CANCER SCREENING (LDCT Only) 09/12/2025 09/12/2024 BLOOD PRESSURE 10/18/2025 04/19/2025 POTASSIUM LEVEL 01/02/2026 01/02/2025 SMOKING Hx and SMOKELESS TOBACCO SCREENING 04/19/2026 04/19/2025 CREATININE LEVEL 04/26/2026 04/26/2025, 01/02/2025 Adult Td,Tdap Booster 12/06/2030 12/06/2020 , [...] on patient's age to complete this topic Goals Goal Patient Goal Type Associated Problems Recent Progress Patient-Stated? Author Autogenerat ed Goal Care Plan Autogenerated Problem No Rosio Macdonald Medical Devices Implanted Type Area Rn Care Manager Device Identifier Shelf Expiration Date Model / Serial / Lot Tissue Graft [id number] Tendon Achilles Frozen Block Bone Length Greater Than Or Equal - [id number] Implanted:Qty: 1 on 02/23/2023 by Trell Quintero [place] [facility] [place]: Knee [facility] 12/29/2027 FAT[employer] / [id number] / Tissue Graft [id number] Tendon Achilles Frozen Block Bone Length Greater Than Or Equal - [id number] Implanted:Qty: 1 on 09/30/2023 by Trell Quintero MD at [facility] Right: Knee [facility] 08/18/2028 [employer] / [id number] / Freestyle Alyssa-Right Arm Hardware X 2 Right Foot Procedures Procedure Name Priority Date/Time Associated Diagnosis Comments COMPREHENSIVE METABOLIC PANEL (CMP) Routine 04/26/2025 1:30 PM EDT HEMOGLOBIN A1C Routine 04/26/2025 1:30 PM EDT LIPID PANEL Routine 04/26/2025 1:30 PM EDT MICROALBUMIN/CREATININ E RATIO, RANDOM URINE Routine 04/26/2025 1:30 PM EDT HEMOGLOBIN A1C Routine 01/02/2025 2:08 PM EDT Type 2 diabetes mellitus with peripheral neuropathy BASIC METABOLIC PANEL (BMP) Routine 01/02/2025 2:08 PM EDT Type 2 diabetes mellitus with peripheral neuropathy from Last 3 Months or Most Recently Relevant to Health Maintenance Results * Comprehensive Metabolic Panel (CMP) (04/26/2025 1:30 PM EDT) Blood (Blood) Result [facility] Provider MD LAB BLOOD BKR ORDERABLES Final Result * Microalbumin/Creatinine Ratio, Random Urine (04/26/2025 1:30 PM EDT) Urine (Urine, Voided) Result [facility] Provider MD LAB URINE ORDERABLES Belinda l Result * Hemoglobin A1c (04/26/2025 1:30 PM EDT) Only the most recent of2 resultswithin the time period is included. Blood (Blood) Result [facility] Provider MD LAB BLOOD BKR ORDERABLES Final Result * Lipid Panel (04/26/2025 1:30 PM EDT) Blood (Blood) Result [facility] MD LAB BLOOD BKR ORDERABLES Final Result * Basic metabolic panel (01/02/2025 2:08 PM EDT) SODIUM 144 133 - 146 mmol/L [facility] CHLORIDE 108 96 - 108 mmol/L [facility] POTASSIUM 4.6 3.3 - 5.1 mmol/L [facility] CO2 25 21 - 35 mmol/L [facility] BUN 9 6 - 19 mg/dL [facility] CREATININE 0.80 0.5 - 1.5 mg/dL [facility] GLUCOSE 97 70 - 99 mg/dL [facility] CALCIUM 9.2 8.4 - 10.3 mg/dL [facility] EGFR 97 >59 mL/min/1.7 3m2 [facility] Comment:Estimated glomerular filtration rate calculated using the CKD-EPI refit equation. ANION GAP 16 10 - 20 mmol/L [facility] Blood 01/02/2025 2:08 PM EDT 01/02/2025 2:13 PM EDT Result [facility] Bridgette Arreola PA-C LAB BLOOD BKR PHILLIPSherry GRISEL Final Result [address] [id number] from Last 3 Months or Most Recently Relevant to Health Maintenance Additional Health Concerns Active Problems Noted Date Diagnosed Date Autogenerated Problem 05/03/2025 Insurance MEDICARE PART A & B [employer] ENHANCE SUPPLEMENT MEDICARE PART A & B Member Subscriber Plan / Payer (Ef fective 2019-Present) Name:Nate Perkins Member ID:[id number] Relation to Subscriber:Self Name:Nate Perkins Subscriber ID:[id number] Payer ID:[id number] Group ID:Not on file Type:Medicare Address: [employer] [address] MEDICARE ENHANCE SUPPLEMENT MEDICARE PART A & B MEDICARE PART A & B MEDICARE PART A & B [employer] MED[employer] ENHANCE SUPPLEMENT MEDICARE PART A & B MEDICARE PART A & B [facility] MEDICARE ENHANCE SUPPLEMENT MEDICARE PART A & B [facility] MEDICARE ENHANCE SUPPLEMENT MEDICARE PART A & B [employer] MED[employer] ENHANCE SUPPLEMENT Care Teams Addiction Therapist Relationship Specialty Start Date End Date Roby Romero MD [address] [facility] [place] [id number] PCP - General Family Medicine 05/14/22 Additional Source Comments The information contained in this document represents components of the legal health record. It is not the complete legal health record.[facility]
== END 2025-06-25 11:16 | disposition home or self-care (01) ==
LOC: HO.10HDL 11:15
PROVIDERS: Visit Provider Urology
DX: E23.0 Hypopituitarism (principal)
CPT/HCPCS: 36415; 84402; 84403